=== PATIENT | female | born 1980 | race Caucasian/White ===

== ENCOUNTER 2016-11-25 09:19 | Emergency (ER) | payer MEDICAID, OTHER ==
[~2016-11-25] VITALS: Ht 160 cm; Wt 86.0 kg
[~2016-11-25 09:19] MED LIST: CIPR500T2 PO; METR-1 PO; NAPR500 PO; OXYC-360 PO; TETR500 PO
[2016-11-25 09:22] VITALS: BP 157/70; PULSE 69; RESP 16; TEMP 98.4; O2SAT 100
[2016-11-25] MEDS ORDERED: SODIUM CHLORIDE 0.9% FLUSH 10 ML FLUSH IVF PRN (09:45)
[2016-11-25] MEDS ORDERED: SODIUM CHLOR 0.9% 1000 ML INJ 1,000 ML IV ONE (10:00)
--- NOTE | 2016-11-25 10:01 | PD ---
HPI Chief Complaint: Related Problem Time Seen by Provider: 09:35 Travel History International Travel<30 days: No Contact w/Intl Traveler<30days: No Traveled to known affect area: No History of Present Illness HPI Patient is a [id number], who presents to ER with complaints of possible miscarriage. Patient reports that she has abnormal menstrual cycles, reports that she cannot tell me when her first day of her last menstrual cycle was. Patient reports that she last had sexual intercourse with her ex a few weeks ago, reports that this was a one-time deal and has not had sexual intercourse since then. Patient reports that last week, she took a test which was positive. Patient reports that on Tuesday, she had increased lower abdominal cramping with heavy vaginal bleeding and clots. Patient reports that bleeding has been intermittent in nature, reports the bleeding has slowed down, she was concerned that she be miscarrying her child. Patient unsure how far along she is at this time, she does not have an SAIL CUTTER as she has no insurance and reports that she cannot seek medical care. Patient here for evaluation of possible miscarriage. Patient with no abdominal pain or cramping at this time. Patient denies fevers or chills, no vaginal discharge except for vaginal bleeding. PFSH Past Medical History Medical History: Denies Significant Hx Diminished Hearing: No Tetanus Vaccination: > 5 Years Influenza Vaccination: No ?: Unknown LMP: 10/05/16 : 5 Para: 2 Miscarriage: 2 Past Surgical History Surgical History: No Previous Surgery Social History Alcohol Use: No Tobacco Use: No Substance Use: No Allergies-Medications (Allergen,Severity, Reaction): Coded Allergies: No Known Allergies (Verified , 11/25/16) Reported Meds & Prescriptions Reported Meds & Active Scripts Active No Active Prescriptions or Reported Medications Review of Systems General / Constitutional: No: Fever Eyes: No: Visual changes HENT: No: Headaches Cardiovascular: No: Chest Pain or Discomfort Respiratory: No: Shortness of Breath Gastrointestinal: Positive: Abdominal Pain Genitourinary: Positive: Pelvic Pain, Vaginal Bleeding, No: Urgency, Dysuria, Discharge Musculoskeletal: No: Pain Skin: No Rash Neurologic: No: Weakness Psychiatric: No: Depression Endocrine: No: Polydipsia Hematologic/Lymphatic: No: Easy Bruising Physical Exam Narrative GENERAL: NAD, nontoxic SKIN: Focused skin assessment warm/dry. HEAD: Atraumatic. Normocephalic. EYES: Pupils equal and round. No scleral icterus. No injection or drainage. ENT: No nasal bleeding or discharge. Mucous membranes pink and moist. NECK: Trachea midline. No JVD. CARDIOVASCULAR: Regular rate and rhythm. No murmur appreciated. RESPIRATORY: No accessory muscle use. Clear to auscultation. Breath sounds equal bilaterally. GASTROINTESTINAL: Abdomen soft, non-tender, nondistended. Hepatic and splenic margins not palpable. MUSCULOSKELETAL: No obvious deformities. No clubbing. No cyanosis. No edema. NEUROLOGICAL: Awake and alert. No obvious cranial nerve deficits. Motor grossly within normal limits. Normal speech. PSYCHIATRIC: Appropriate mood and affect; insight and judgment normal. Data Data Last Documented VS Vital Signs Date Time Temp Pulse Resp B/P Pulse Ox O2 Delivery O2 Flow Rate FiO2 11/25/16 09:36 74 18 11/25/16 09:22 98.4 157/70 100 Orders Beta Hcg (Quant/Titer) (11/25/16 09:35) Complete Blood Count With Diff (11/25/16 09:35) Basic Metabolic Panel (Bmp) (11/25/16 09:35) Urinalysis - C+S If Indicated (11/25/16 09:35) Iv Access Insert/Monitor (11/25/16 09:35) Sodium Chloride 0.9% Flush (Ns Flush) (11/25/16 09:45) Ed Urine Pregnancytest Poc (11/25/16 09:35) Type And Screen (11/25/16 09:36) Us Pelvis (Ques Pr/Ect)W Trans (11/25/16 ) Sodium Chlor 0.9% 1000 Ml Inj (Ns 1000 M (11/25/16 10:00) Labs Laboratory Tests Test 11/25/16 11/25/16 09:30 09:45 Urine Color YELLOW Urine Turbidity CLEAR Urine pH 6.5 Urine Specific [place] 1.019 Urine Protein TRACE mg/dL Urine Glucose (UA) NEG mg/dL Urine Ketones TRACE mg/dL Urine Occult Blood TRACE Urine Nitrite NEG Urine Bilirubin NEG Urine Urobilinogen LESS THAN 2.0 MG/DL Urine Leukocyte Esterase SMALL Urine RBC 1 /hpf Urine WBC 1 /hpf Urine Squamous Epithelial 2 /hpf Cells Urine Mucus FEW /lpf Microscopic Urinalysis Comment CULT NOT INDICATED White Blood Count 6.4 TH/MM3 Red Blood Count 3.57 MIL/MM3 Hemoglobin 10.3 GM/DL Hematocrit 31.1 % Mean Corpuscular Volume 87.3 FL Mean Corpuscular Hemoglobin 28.9 PG Mean Corpuscular Hemoglobin 33.1 % Concent Red Cell Distribution Width 13.9 % Platelet Count 387 TH/MM3 Mean Platelet Volume 6.9 FL Neutrophils (%) (Auto) 67.3 % Lymphocytes (%) (Auto) 24.4 % Monocytes (%) (Auto) 6.6 % Eosinophils (%) (Auto) 1.2 % Basophils (%) (Auto) 0.5 % Neutrophils # (Auto) 4.3 TH/MM3 Lymphocytes # (Auto) 1.6 TH/MM3 Monocytes # (Auto) 0.4 TH/MM3 Eosinophils # (Auto) 0.1 TH/MM3 Basophils # (Auto) 0.0 TH/MM3 CBC Comment DIFF FINAL Differential Comment Sodium Level 137 MEQ/L Potassium Level 3.8 MEQ/L Chloride Level 106 MEQ/L Carbon Dioxide Level 23.6 MEQ/L Anion Gap 7 MEQ/L Blood Urea Nitrogen 7 MG/DL Creatinine 0.70 MG/DL Estimat Glomerular Filtration 94 ML/MIN Rate Random Glucose 96 MG/DL Calcium Level 8.5 MG/DL Human Chorionic Gonadotropin, 44 MIU/ML Quant Blood Type O POSITIVE Antibody Screen NEGATIVE MDM Medical Decision Making Medical Screen Exam Complete: Yes Emergency Medical Condition: Yes Medical Record Reviewed: Yes Interpretation(s) Vital Signs Date Time Temp Pulse Resp B/P Pulse Ox O2 Delivery O2 Flow Rate FiO2 11/25/16 09:36 74 18 11/25/16 09:22 98.4 69 16 157/70 100 Differential Diagnosis Differential includes early vaginal bleeding with , spontaneous miscarriage Narrative Course Patient is a 36-year-old female who presents to emergency room complaints of possible miscarriage. Reports that she took a test last week which was positive, she is unsure when her first day of her last menstrual cycle was. Reports that on Tuesday, she had heavy vaginal bleeding with of clots, reports that the bleeding has been intermittent and has slowed down, or reports no abdominal pain or cramping at this time. Patient reports that she does not have follow-up with an SAIL CUTTER, patient is here to see if she is having a miscarriage. Urine hCG is positive. HCG Quant ordered, pelvic ultrasound. Laboratory Tests Test 11/25/16 11/25/16 09:30 09:45 Urine Color YELLOW (YELLW/STRAW) Urine Turbidity CLEAR (CLEAR) Urine pH 6.5 (5.0-8.5) Urine Specific [place] 1.019 (1.002-1.035) Urine Protein TRACE mg/dL (NEG-TRACE) Urine Glucose (UA) NEG mg/dL (NEG) Urine Ketones TRACE mg/dL (NEG) Urine Occult Blood TRACE (NEG) Urine Nitrite NEG (NEG) Urine Bilirubin NEG (NEG) Urine Urobilinogen LESS THAN 2.0 MG/DL (LESS THAN 2.0) Urine Leukocyte Esterase SMALL (NEG) Urine RBC 1 /hpf (0-3) Urine WBC 1 /hpf (0-5) Urine Squamous Epithelial 2 /hpf (0-5) Cells Urine Mucus FEW /lpf (OCC) Microscopic Urinalysis Comment CULT NOT INDICATED White Blood Count 6.4 TH/MM3 (4.0-11.0) Red Blood Count 3.57 MIL/MM3 (4.00-5.30) Hemoglobin 10.3 GM/DL (11.6-15.3) Hematocrit 31.1 % (35.0-46.0) Mean Corpuscular Volume 87.3 FL (80.0-100.0) Mean Corpuscular Hemoglobin 28.9 PG (27.0-34.0) Mean Corpuscular Hemoglobin 33.1 % Concent (32.0-36.0) Red Cell Distribution Width 13.9 % (11.6-17.2) Platelet Count 387 TH/MM3 (150-450) Mean Platelet Volume 6.9 FL (7.0-11.0) Neutrophils (%) (Auto) 67.3 % (16.0-70.0) Lymphocytes (%) (Auto) 24.4 % (9.0-44.0) Monocytes (%) (Auto) 6.6 % (0.0-8.0) Eosinophils (%) (Auto) 1.2 % (0.0-4.0) Basophils (%) (Auto) 0.5 % (0.0-2.0) Neutrophils # (Auto) 4.3 TH/MM3 (1.8-7.7) Lymphocytes # (Auto) 1.6 TH/MM3 (1.0-4.8) Monocytes # (Auto) 0.4 TH/MM3 (0-0.9) Eosinophils # (Auto) 0.1 TH/MM3 (0-0.4) Basophils # (Auto) 0.0 TH/MM3 (0-0.2) CBC Comment DIFF FINAL Differential Comment Sodium Level 137 MEQ/L (136-145) Potassium Level 3.8 MEQ/L (3.5-5.1) Chloride Level 106 MEQ/L (98-107) Carbon Dioxide Level 23.6 MEQ/L (21.0-32.0) Anion Gap 7 MEQ/L (5-15) Blood Urea Nitrogen 7 MG/DL (7-18) Creatinine 0.70 MG/DL (0.50-1.00) Estimat Glomerular Filtration 94 ML/MIN (>89) Rate Random Glucose 96 MG/DL (74-106) Calcium Level 8.5 MG/DL (8.5-10.1) Human Chorionic Gonadotropin, 44 MIU/ML (0-5) Quant Blood Type O POSITIVE Antibody Screen NEGATIVE hbg 10.3, hcg quant 44, ua: trace ketones, trace occult blood, small leuk esterase, 1 wbc, neg nitrite with a hcg quant of 44, patient with most likely spontaneous miscarriage vs early . discussed with patient need to have a repeat hcg quant in 48 hours as she will need to trend her numbers. she will also need to follow up with electrical installation inspector. signs and symptoms of when to return to ER was reviewed with patient in detail. Copies of her studies were given to her at discharge signs and symptoms of when to return to ER was reviewed with patient in detail Diagnosis Primary Impression: Vaginal bleeding in Referrals: Jeimy Adam MD Patient Instructions: General Instructions Additional Instructions: Please provide patient with a copy of her studies at discharge Please have your HCG quant repeated in 48 hours as your HCT quant today is 44 as there is concern for early versus miscarriage Please follow up with your electrical installation inspector Return to ER if symptoms worsen or persist Scripts No Active Prescriptions or Reported Meds Disposition: 01 DISCHARGE HOME Condition: Stable StanfordTherese Nov 25, 2016 10:01
[2016-11-25 10:02] LABS: AUTOMATED NEUTROPHIL # 4.3 TH/MM3 (1.8-7.7); BASOPHIL % 0.5 % (0.0-2.0); EOSINOPHIL # 0.1 TH/MM3 (0-0.4); EOSINOPHIL % 1.2 % (0.0-4.0); HEMATOCRIT 31.1 % (35.0-46.0); HEMO FLAGS DIFF FINAL; LYMPH % 24.4 % (9.0-44.0); LYMPHOCYTE # 1.6 TH/MM3 (1.0-4.8); MEAN CELL VOLUME 87.3 FL (80.0-100.0); MEAN CORPUSCULAR HEMOGLOBIN 28.9 PG (27.0-34.0); MEAN CORPUSCULAR HGB CONC 33.1 % (32.0-36.0); MONO % 6.6 % (0.0-8.0); NEUT % 67.3 % (16.0-70.0); PLATELET COUNT 387 TH/MM3 (150-450); RED BLOOD COUNT 3.57 MIL/MM3 (4.00-5.30); RED CELL DISTRIBUTION WIDTH 13.9 % (11.6-17.2); WHITE BLOOD COUNT 6.4 TH/MM3 (4.0-11.0)
[2016-11-25 10:09] LABS: BLOOD, URINE TRACE (NEG); COMMENT (UR) CULT NOT INDICATED; CULTURE IF INDICATED CULT NOT INDICATED; GLUCOSE,URINE NEG (NEG); KETONE, URINE TRACE mg/dL (NEG); MUCUS URINE FEW /lpf (OCC); NITRITE,URINE NEG (NEG); PH, URINE 6.5 (5.0-8.5); SQUAMOUS EPITHELIAL CELL URINE 2 /hpf (0-5); URINE COLOR YELLOW (YELLW/STRAW)
[2016-11-25 10:18] LABS: BICARBONATE 23.6 MEQ/L (21.0-32.0); POTASSIUM 3.8 MEQ/L (3.5-5.1)
--- NOTE | 2016-11-25 12:51 | RADRPT ---
EXAM DATE/TIME: 11/25/2016 10:23 [facility] COMPARISON: No previous studies available for comparison. INDICATIONS : Pelvic bleeding and pain. LAB(S): Beta-hC MEDICAL HISTORY : . SURGICAL HISTORY : None. ENCOUNTER: Initial ACUITY: 3 days PAIN SCORE: 2/10 LOCATION: Bilateral pelvis MEASUREMENTS: TRANSVAGINAL: UTERUS: 8.1 x 6.8 x 5.0 cm ENDOMETRIAL STRIPE: 10 mm RIGHT OVARY: 4.2 x 1.8 x 1.8 cm LEFT OVARY: 4.9 x 4.0 x 2.9 cm FREE FLUID: Yes posterior cul de sac. FINDINGS: No intrauterine gestational sac is identified. The endometrium is somewhat thickened. With a positi ve test, differential includes very early intrauterine , missed and ectop ic . Correlation with Beta HCG levels is suggested. There is a complex cystic mass arising from the left ovary measuring 3.1 x 2.2 x 3.5 cm. A small complex hypoechoic nodule is also noted w ithin the left ovary measuring 1.1 x 1.1 x 1.3 cm. The right ovary is unremarkable. There is some f ree fluid within the cul-de-sac. Nabothian cyst is noted within the cervix. CONCLUSION: 1. No intrauterine gestational sac is identified. With a positive test, differential diagn osis includes very early intrauterine , missed and ectopic . Correlation with serial Beta HCG levels is suggested. 2. Some free fluid within the cul-de-sac. 3. Complex cystic lesion within the left ovary measuring 3.1 x 2.2 x 3.5 cm. Frederick Thompson MD on November 25, 2016 at 11:57 Board Certified Radiologist. This report was verified electronically.
== END 2016-11-25 13:59 | disposition home or self-care (01) ==
LOC: NEPD 09:19
DX: O46.91 Antepartum hemorrhage, unspecified, first trimester (principal); Z34.91 Encounter for supervision of normal pregnancy, unspecified, first trimester
CPT/HCPCS: 76700; 76817; 80048; 81001; 84702; 84703; 85025; 86850; 86900; 86901; 96360; 99284; J7030

== ENCOUNTER 2017-04-14 22:13 | Emergency (ER) | payer MEDICAID ==
[~2017-04-14] VITALS: Ht 160 cm; Wt 83.0 kg
[2017-04-14 22:17] VITALS: BP 145/78; PULSE 81; RESP 16; TEMP 98.4; O2SAT 98
== END 2017-04-14 23:50 | disposition left against medical advice (07) ==
LOC: NED 22:13
DX: R51 Headache (principal); Z53.21 Procedure and treatment not carried out due to patient leaving prior to being seen by health care provider
CPT/HCPCS: 99281

== ENCOUNTER 2017-06-06 07:39 | Inpatient (IN) | payer MEDICAID ==
[~2017-06-06] VITALS: Ht 160 cm; Wt 80.0 kg
[2017-06-06 07:42] VITALS: BP 144/86; PULSE 81; RESP 16; TEMP 98.5; O2SAT 100
[2017-06-06] MEDS ORDERED: MORPHINE SULFATE 8 MG/ML INJ IV PUSH ONE (08:15)
[2017-06-06] MEDS ORDERED: ONDANSETRON HCL 4 MG/2 ML VIAL IVP ONE (08:15)
--- NOTE | 2017-06-06 08:33 | PD ---
HPI Chief Complaint: Abdominal Pain Time Seen by Provider: 08:15 Travel History International Travel<30 days: No Contact w/Intl Traveler<30days: No Traveled to known affect area: No History of Present Illness HPI This is a 36-year-old female who presents today with complaints of abdominal pain. Patient states that it started in her left lower quadrant earlier today. She states that it has become so severe now that she cannot lay flat. She reports it as a sudden onset. She reports that she has had vaginal spotting. She denies any dysuria, frequency, urgency. She denies any vaginal discharge other than the spotting. She states that she is unsure whether or not she is . She has no previous history of ectopic pregnancies. There is no reported fevers, chills. There is no reported diarrhea, nausea or vomiting. PFSH Past Medical History Medical History: Denies Significant Hx Diminished Hearing: No ?: Not LMP: UNKNOWN : 5 Para: 2 Miscarriage: 2 Past Surgical History Surgical History: No Previous Surgery Social History Alcohol Use: No Tobacco Use: No Substance Use: Yes (feli ) Allergies-Medications (Allergen,Severity, Reaction): Coded Allergies: No Known Allergies (Verified Allergy, Unknown, 06/06/17) Reported Meds & Prescriptions Reported Meds & Active Scripts Active [place] (Hydrocodone-Acetaminophen) 7.5-325 mg Tab 1 Tab PO Q4H PRN 5 Days Review of Systems Except as stated in HPI: all other systems reviewed are Neg General / Constitutional: No: Fever, Chills HENT: No: Headaches, Lightheadedness, Neck Pain Cardiovascular: No: Chest Pain or Discomfort, Palpitations Respiratory: No: Cough, Shortness of Breath Gastrointestinal: Positive: Abdominal Pain (Diffuse, started left lower quadrant), No: Nausea, Vomiting, Diarrhea Genitourinary: Positive: Vaginal Bleeding (Spotting), No: Frequency, Dysuria, Discharge Musculoskeletal: No: Weakness, Pain Neurologic: No: Weakness, Dizziness, Headache Physical Exam Narrative GENERAL: Well-developed well-nourished female in no acute respiratory distress. The patient is very uncomfortable and was standing at the edge of the bed stating that she could not lie flat. SKIN: Focused skin assessment warm/dry. HEAD: Atraumatic. Normocephalic. EYES: Pupils equal and round. No scleral icterus. No injection or drainage. ENT: No nasal bleeding or discharge. Mucous membranes pink and moist. NECK: Trachea midline. Supple. CARDIOVASCULAR: Regular rate and rhythm. No murmur appreciated. RESPIRATORY: No accessory muscle use. Clear to auscultation. Breath sounds equal bilaterally. GASTROINTESTINAL: Abdomen soft, nondistended. She has severe tenderness to palpation in her lower abdominal segment bilaterally. Positive guarding with questionable early rebound. MUSCULOSKELETAL: No obvious deformities. No clubbing. No cyanosis. No edema. NEUROLOGICAL: Awake and alert. No obvious cranial nerve deficits. Motor grossly within normal limits. Normal speech. Data Data Last Documented VS Vital Signs Date Time Temp Pulse Resp B/P (MAP) Pulse Ox O2 Delivery O2 Flow Rate FiO2 06/06/17 10:36 65 18 99/69 (79) 99 Room Air 06/06/17 07:42 98.5 Orders Orders Complete Blood Count With Diff (06/06/17 08:15) Comprehensive Metabolic Panel (06/06/17 08:15) Urinalysis - C+S If Indicated (06/06/17 08:15) Ondansetron Inj (Zofran Inj) (06/06/17 08:15) Ed Urine Pregnancytest Poc (06/06/17 08:15) Morphine Inj (Morphine Inj) (06/06/17 08:15) Type And Screen (06/06/17 08:28) Prothrombin Time / Inr (Pt) (06/06/17 08:28) Act Partial Throm Time (Ptt) (06/06/17 08:28) Beta Hcg (Quant/Titer) (06/06/17 08:33) Us Pelvis (Ques Pr/Ect)W Trans (06/06/17 08:33) Morphine Inj (Morphine Inj) (06/06/17 09:30) Admit Order (Ed Use Only) (06/06/17 10:48) Labs Laboratory Tests Test 06/06/17 08:30 White Blood Count 7.3 TH/MM3 Red Blood Count 4.03 MIL/MM3 Hemoglobin 11.2 GM/DL Hematocrit 33.3 % Mean Corpuscular Volume 82.8 FL Mean Corpuscular Hemoglobin 27.9 PG Mean Corpuscular Hemoglobin Concent 33.7 % Red Cell Distribution Width 15.4 % Platelet Count 465 TH/MM3 Mean Platelet Volume 7.1 FL Neutrophils (%) (Auto) 58.5 % Lymphocytes (%) (Auto) 31.7 % Monocytes (%) (Auto) 6.5 % Eosinophils (%) (Auto) 2.3 % Basophils (%) (Auto) 1.0 % Neutrophils # (Auto) 4.3 TH/MM3 Lymphocytes # (Auto) 2.3 TH/MM3 Monocytes # (Auto) 0.5 TH/MM3 Eosinophils # (Auto) 0.2 TH/MM3 Basophils # (Auto) 0.1 TH/MM3 CBC Comment DIFF FINAL Differential Comment Prothrombin Time 10.3 SEC Prothromb Time International Ratio 1.0 RATIO Activated Partial Thromboplast Time 24.1 SEC Urine Color YELLOW Urine Turbidity CLEAR Urine pH 6.5 Urine Specific [place] 1.021 Urine Protein TRACE mg/dL Urine Glucose (UA) NEG mg/dL Urine Ketones NEG mg/dL Urine Occult Blood MOD Urine Nitrite NEG Urine Bilirubin NEG Urine Urobilinogen LESS THAN 2.0 MG/DL Urine Leukocyte Esterase TRACE Urine RBC 30 /hpf Urine WBC 1 /hpf Urine Squamous Epithelial Cells 1 /hpf Urine Mucus FEW /lpf Microscopic Urinalysis Comment CULT NOT INDICATED Blood Urea Nitrogen 10 MG/DL Creatinine 0.69 MG/DL Random Glucose 94 MG/DL Total Protein 7.3 GM/DL Albumin 3.9 GM/DL Calcium Level 9.0 MG/DL Alkaline Phosphatase 57 U/L Aspartate Amino Transf (AST/SGOT) 14 U/L Alanine Aminotransferase (ALT/SGPT) 15 U/L Total Bilirubin 0.5 MG/DL Sodium Level 138 MEQ/L Potassium Level 4.2 MEQ/L Chloride Level 105 MEQ/L Carbon Dioxide Level 26.3 MEQ/L Anion Gap 7 MEQ/L Estimat Glomerular Filtration Rate 95 ML/MIN Human Chorionic Gonadotropin, Quant 3339 MIU/ML [facility] Medical Decision Making Medical Screen Exam Complete: Yes Emergency Medical Condition: Yes Differential Diagnosis Ruptured ovarian cyst versus ectopic versus PID versus gastroenteritis Narrative Course 36-year-old female presents with severe left-sided abdominal pain that is now moved to her lower abdominal segment. Patient denies any fevers, chills. She states it came on quite suddenly. She does report vaginal spotting. Patient's urine test was positive. Bedside ultrasound shows an empty uterus with complex cystic structure in the left ovarian segment. There is free fluid in the pelvis that is consistent with blood per the radiologist. The patient is hemodynamically stable. She has been discussed with the on-call OB hospitalist. The OB hospitalist is now down to evaluate the patient with his medical team. She will be admitted to the hospital under the [employer]IO [employer]CH[employer]IC APPRENTICE physician on- call. The patient has been typed and crossed. She is Rh+. Formal beta-hCG is 3000. Critical Care Narrative Aggregate critical care time was 60 minutes. Time to perform other separately billable procedures was not included in the critical care time. My time did not include minutes spent treating any other patients simultaneously or on activities that did not directly contribute to the patient's treatment. The services I provided to this patient were to treat and/or prevent clinically significant deterioration that could result in: I provided critical care services requiring my management, as noted below: Chart data review, documentation time, medication orders and management, vital sign assessments/reviewing monitor data, ordering and reviewing lab tests, ordering and interpreting/reviewing x-rays and diagnostic studies, care of the patient and discussion of the patient with the admitting physicians. Diagnosis Primary Impression: Ruptured ectopic Admitting Information Admitting Physician Requests: Admit Scripts Hydrocodone-Acetaminophen ([place]) 7.5-325 mg Tab 1 TAB PO Q4H Y for PAIN for 5 Days, #30 TAB 0 Refills Prov: Maxwell Gonzalez MD 06/06/17 Rolan Rousseau MD Jun 06, 2017 08:33
[2017-06-06 08:47] LABS: AUTOMATED NEUTROPHIL # 4.3 TH/MM3 (1.8-7.7); BASOPHIL # 0.1 TH/MM3 (0-0.2); EOSINOPHIL # 0.2 TH/MM3 (0-0.4); EOSINOPHIL % 2.3 % (0.0-4.0); HEMATOCRIT 33.3 % (35.0-46.0); HEMOGLOBIN 11.2 GM/DL (11.6-15.3); LYMPH % 31.7 % (9.0-44.0); LYMPHOCYTE # 2.3 TH/MM3 (1.0-4.8); MEAN CELL VOLUME 82.8 FL (80.0-100.0); MEAN CORPUSCULAR HEMOGLOBIN 27.9 PG (27.0-34.0); MEAN CORPUSCULAR HGB CONC 33.7 % (32.0-36.0); MEAN PLATELET VOLUME 7.1 FL (7.0-11.0); MONO % 6.5 % (0.0-8.0); MONOCYTE # 0.5 TH/MM3 (0-0.9); NEUT % 58.5 % (16.0-70.0); PLATELET COUNT 465 TH/MM3 (150-450); RED BLOOD COUNT 4.03 MIL/MM3 (4.00-5.30); RED CELL DISTRIBUTION WIDTH 15.4 % (11.6-17.2); WHITE BLOOD COUNT 7.3 TH/MM3 (4.0-11.0)
[2017-06-06 08:57] LABS: BILIRUBIN, URINE NEG (NEG); BLOOD, URINE MOD (NEG); GLUCOSE,URINE NEG (NEG); KETONE, URINE NEG (NEG); MUCUS URINE FEW /lpf (OCC); NITRITE,URINE NEG (NEG); PH, URINE 6.5 (5.0-8.5); SQUAMOUS EPITHELIAL CELL URINE 1 /hpf (0-5); URINE COLOR YELLOW (YELLW/STRAW); URINE LEUKOCYTE ESTERASE TRACE (NEG)
[2017-06-06 09:08] LABS: ALBUMIN 3.9 GM/DL (3.4-5.0); AST (GOT) 14 U/L (15-37); BICARBONATE 26.3 MEQ/L (21.0-32.0); BLOOD UREA NITROGEN 10 MG/DL (7-18); CHLORIDE 105 MEQ/L (98-107); CREATININE 0.69 MG/DL (0.50-1.00); GLOMERULAR FILTRATION RATE 95 ML/MIN (>89); GLUCOSE,RANDOM 94 MG/DL (74-106); SODIUM (NA) 138 MEQ/L (136-145)
[2017-06-06 09:09] LABS: ALT (GPT) 15 U/L (10-53)
[2017-06-06 09:10] LABS: ALKALINE PHOSPHATASE 57 U/L (45-117); TOTAL BILIRUBIN ADULT 0.5 MG/DL (0.2-1.0); TOTAL PROTEIN 7.3 GM/DL (6.4-8.2)
[2017-06-06] MEDS ORDERED: MORPHINE SULFATE 4 MG/ML INJ IV PUSH ONE (09:30)
[2017-06-06 09:31] LABS: PROTHROMBIN TIME - PATIENT 10.3 SEC (9.8-11.6)
--- NOTE | 2017-06-06 09:34 | RADRPT ---
EXAM DATE/TIME: 06/06/2017 08:36 [facility] COMPARISON: US PELVIS (QUEST PREG/ECTOPIC) W/TRANSVAG, November 25, 2016, 10:23. INDICATIONS : Ruptured ectopic . Pelvic pain. LAB(S): Beta-hCG: N/A MEDICAL HISTORY : Substance use. Pelvic pain. Vaginal bleeding. SURGICAL HISTORY : None. ENCOUNTER: Initial ACUITY: 1 day PAIN SCORE: 10/10 LOCATION: Left pelvis MEASUREMENTS: UTERUS: 8.3 x 4.2 x 5.2 cm ENDOMETRIAL STRIPE: 7 mm RIGHT OVARY: 3.4 x 1.9 x 3.3 cm LEFT OVARY: 4.4 x 3.9 x 5.0 cm FREE FLUID: Yes Bilateral adnexas. CROWN RUMP LENGTH: Not visualized. = WKS DAYS FHR: Not visualized. BPM FINDINGS: UTERUS: The myometrium has homogeneous echotexture without mass. No gestational sac is present within the en dometrial cavity. RIGHT OVARY: Ovary contains no mass or significant cystic lesion. Follicles are present. LEFT OVARY: There is a heterogeneous echotexture masslike area in the left adnexa measuring a approximately 4.4 x 3.9 x 5.0 cm. There is a cystic structure in the region of the left adnexa which demonstrates periph eral hypervascularity. No yolk sac or embryo is seen. MISCELLANEOUS: There is complex free fluid in the posterior cul-de-sac and bilateral adnexa. CONCLUSION: 1. The above findings are suspicious for ruptured ectopic . There is a small volume of compl ex fluid in the pelvis, likely blood products, and there is a complex mass in the left adnexa. 2. There is no gestational sac within the uterus. The right ovary has a normal appearance. 3. Dr. Rousseau was notified of the above findings. Ashwin Maldonado MD on June 06, 2017 at 9:27 Board Certified Radiologist. This report was verified electronically.
[2017-06-06 10:36] VITALS: BP 99/69; PULSE 65; RESP 18; O2SAT 99
--- NOTE | 2017-06-06 11:34 | HHI.HP ---
HPI Chief Complaint Abdominal pain Travel History International Travel<30 Days: No Contact w/Intl Traveler<30Days: No Known Affected Area: No History of Present Illness HPI Patient is a 36-year-old presenting today with abdominal pain. Patient states that she had severe lower left quadrant pain last night which is described as sharp, "the worst pain of my life", attributed to eating red meat the day before. Overnight the pain increased to the entire abdomen, she now notes notes significant abdominal swelling. She states she currently has 2 living children, 1 past miscarriage, one completed via surgical removal. Last menstrual period approximately 1 month ago, normal, has had some spotting over the past couple days which she attributes to her own normal premenstrual spotting. She states she currently doesn't use contraceptive protection states she is "not really sexually active." Denies nausea, vomiting, fever, chills, change in bowel habits, change in urinary habits, chest pain, shortness of breath, headache, change in vision. No other complaints today. Para: 2 : 5 Miscarriage: 1 : 1 History Past Medical History Medical History: Denies Significant Hx Obstetric History Obstetric History Past history of miscarriage x1, surgical . NVD x 2 Past Surgical History Surgical History: No Previous Surgery Family History Family History: Negative Social History Alcohol Use: No Tobacco Use: No Substance Abuse: Yes (occasional marijuana) Allergies-Medications (Allergen,Severity, Reaction): Coded Allergies: No Known Allergies (Verified Adverse Reaction, Unknown, 04/14/17) Home Meds No Active Prescriptions or Reported Meds Review of Systems General / Constitutional: No: Fever, Chills Eyes: No: Diploplia, Blurred Vision, Visual changes, Pain, Photophobia HENT: No: Headaches, Vertigo, Lightheadedness Cardiovascular: No: Chest Pain or Discomfort, Palpitations, Tachycardia Respiratory: No: Cough, Short of Breath, Wheezing Gastrointestinal: Abdominal Pain, No: Nausea, Vomiting, Diarrhea, Hematemesis, Hematochezia, Constipation, Changes in Bowel Habits, Indigestion Genitourinary: Other (spotting), No: Urgency, Frequency, Dysuria, Hematuria Musculoskeletal: No: Limited ROM, Weakness Skin: No Rash, No Itching Neurologic: No: Weakness, Dizziness Psychiatric: No: Anxiety, Depression Endocrine: No: Polydipsia, Polyuria Hematologic/Lymphatic: No Easy Bruising, No Lymph Node Enlargement Physical Exam Vital Signs Date Time Temp Pulse Resp B/P (MAP) Pulse Ox O2 Delivery O2 Flow Rate FiO2 06/06/17 10:36 65 18 99/69 (79) 99 Room Air 06/06/17 07:42 98.5 81 16 144/86 (105) 100 Narrative GENERAL: Well-nourished, well-developed patient SKIN: Warm and dry. HEAD: Normocephalic and atraumatic. EYES: No scleral icterus. No injection or drainage. ENT: No nasal drainage noted. Mucous membranes pink. Airway patent. NECK: Supple, trachea midline. No JVD. CARDIOVASCULAR: Regular rate and rhythm without murmurs, gallops, or rubs. RESPIRATORY: Breath sounds equal bilaterally. No accessory muscle use. ABDOMEN/GI: Abdomen soft, distended, global tenderness to soft palpation, worse in left lower quadrant, guarding, bowel sounds present, negative psoas EXTREMITIES: No cyanosis or edema. BACK: Nontender without obvious deformity. No CVA tenderness. NEUROLOGICAL: Awake and alert. Motor and sensory grossly within normal limits. Five out of 5 muscle strength in all muscle groups. Normal speech. Caprini VTE Risk Assessment Caprini VTE Risk Assessment: No/Low Risk (score <= 1) Data Data Orders Orders Complete Blood Count With Diff (06/06/17 08:15) Comprehensive Metabolic Panel (06/06/17 08:15) Urinalysis - C+S If Indicated (06/06/17 08:15) Ondansetron Inj (Zofran Inj) (06/06/17 08:15) Ed Urine Pregnancytest Poc (06/06/17 08:15) Morphine Inj (Morphine Inj) (06/06/17 08:15) Type And Screen (06/06/17 08:28) Prothrombin Time / Inr (Pt) (06/06/17 08:28) Act Partial Throm Time (Ptt) (06/06/17 08:28) Beta Hcg (Quant/Titer) (06/06/17 08:33) Us Pelvis (Ques Pr/Ect)W Trans (06/06/17 08:33) Morphine Inj (Morphine Inj) (06/06/17 09:30) Admit Order (Ed Use Only) (06/06/17 10:48) Labs Laboratory Tests Test 06/06/17 08:30 White Blood Count 7.3 Red Blood Count 4.03 Hemoglobin 11.2 Hematocrit 33.3 Mean Corpuscular Volume 82.8 Mean Corpuscular Hemoglobin 27.9 Mean Corpuscular Hemoglobin Concent 33.7 Red Cell Distribution Width 15.4 Platelet Count 465 Mean Platelet Volume 7.1 Neutrophils (%) (Auto) 58.5 Lymphocytes (%) (Auto) 31.7 Monocytes (%) (Auto) 6.5 Eosinophils (%) (Auto) 2.3 Basophils (%) (Auto) 1.0 Neutrophils # (Auto) 4.3 Lymphocytes # (Auto) 2.3 Monocytes # (Auto) 0.5 Eosinophils # (Auto) 0.2 Basophils # (Auto) 0.1 CBC Comment DIFF FINAL Differential Comment Prothrombin Time 10.3 Prothromb Time International Ratio 1.0 Activated Partial Thromboplast Time 24.1 Urine Color YELLOW Urine Turbidity CLEAR Urine pH 6.5 Urine Specific [place] 1.021 Urine Protein TRACE Urine Glucose (UA) NEG Urine Ketones NEG Urine Occult Blood MOD Urine Nitrite NEG Urine Bilirubin NEG Urine Urobilinogen LESS THAN 2.0 Urine Leukocyte Esterase TRACE Urine RBC 30 Urine WBC 1 Urine Squamous Epithelial Cells 1 Urine Mucus FEW Microscopic Urinalysis Comment CULT NOT INDICATED Blood Urea Nitrogen 10 Creatinine 0.69 Random Glucose 94 Total Protein 7.3 Albumin 3.9 Calcium Level 9.0 Alkaline Phosphatase 57 Aspartate Amino Transf (AST/SGOT) 14 Alanine Aminotransferase (ALT/SGPT) 15 Total Bilirubin 0.5 Sodium Level 138 Potassium Level 4.2 Chloride Level 105 Carbon Dioxide Level 26.3 Anion Gap 7 Estimat Glomerular Filtration Rate 95 Human Chorionic Gonadotropin, Quant 3339 Assessment/Plan Problem List: (1) Ruptured ectopic ICD Codes: O00.90 - Unspecified ectopic without intrauterine Status: Acute Plan: 36 year old presented with global abdominal tenderness, negative CVA tenderness. Denies contraceptive use. Ultrasound demonstrates no gestational sac within the uterus, small volume of complex fluid in the pelvis, complex mass in left adnexa, suspicious for ruptured ectopic . Hgb 11.2 , HCG 3339 -Admit for surgical intervention -Monitor vital signs -NPO -Morphine pain scale PRN pain -2g ancef as per guest relations representative controller repairer and tester d/w Dr. Patrick Zamora,Christopher Shaw MD R1 Jun 06, 2017 11:34
[2017-06-06] MEDS ORDERED: MORPHINE SULFATE 2 MG/ML INJ IV PUSH PRN ×3 (11:45)
[2017-06-06] MEDS ORDERED: IBUPROFEN 400 MG TAB PO PRN (11:45)
[2017-06-06] MEDS ORDERED: NALOXONE HCL 0.4 MG/ML AMP IV PUSH PRN (11:45)
[2017-06-06] MEDS ORDERED: ceFAZolin 2 GM PREMIX 50 ML IV SCH (11:45)
[2017-06-06] MEDS ORDERED: BUPIVACAINE HCL PF 0.25% 30 ML VIAL ONE (11:57)
[2017-06-06] MEDS ORDERED: GLYCOPYRROLATE 1 MG/5 ML SYRINGE IV PUSH ONE (12:00)
[2017-06-06] MEDS ORDERED: ROCURONIUM INJ 50 MG/5 ML SYRINGE IV PUSH ONE (12:00)
[2017-06-06] MEDS ORDERED: ONDANSETRON HCL 4 MG/2 ML VIAL IV ONE (12:00)
[2017-06-06] MEDS ORDERED: LACTATED RINGER'S 1000 ML INJ 1,000 ML IV ONE (12:00)
[2017-06-06] MEDS ORDERED: DEXAMETHASONE SOD PHOS 4 MG/ML VIAL IV ONE (12:00)
[2017-06-06] MEDS ORDERED: NORMOSOL R INJ 1,000 ML IV ONE (12:00)
[2017-06-06] MEDS ORDERED: KETOROLAC TROMETHAMINE 30 MG/ML (IVP) VIAL IV PUSH ONE (12:00)
[2017-06-06] MEDS ORDERED: PROPOFOL 200 MG/20 ML AMP IV ONE (12:00)
[2017-06-06] MEDS ORDERED: NEOSTIGMINE 5 MG/5 ML SYRINGE IV PUSH ONE (12:00)
[2017-06-06] MEDS ORDERED: LIDOCAINE HCL 1% PF 5 ML SYRINGE OTHER ONE (12:00)
[2017-06-06] MEDS ORDERED: oxyCODONE/ACETAMINOPHEN 5 MG/325 MG TAB PO PRN (13:00)
[2017-06-06] MEDS ORDERED: diphenhydrAMINE HCL 25 MG CAP PO PRN (13:00)
[2017-06-06] MEDS ORDERED: HYDROmorphone HCL PF 2 MG/ML VIAL IV PRN (13:00)
[2017-06-06] MEDS ORDERED: SODIUM CHLORIDE 0.9% FLUSH 10 ML FLUSH IV FLUSH SCH ×2 (13:00→21:00)
[2017-06-06] MEDS ORDERED: IBUPROFEN 600 MG TAB PO PRN (13:00)
[2017-06-06] MEDS ORDERED: ONDANSETRON HCL 4 MG/2 ML VIAL IVP PRN (13:00)
[2017-06-06] MEDS ORDERED: LORazepam 0.5 MG TAB PO PRN (13:00)
[2017-06-06] MEDS: DOCUSATE SODIUM 100 MG CAP PO SCH (13:00)
[2017-06-06] MEDS ORDERED: SODIUM CHLORIDE 0.9% FLUSH 10 ML FLUSH IV FLUSH PRN ×2 (13:00→17:00)
[2017-06-06] MEDS ORDERED: HYDR-3288 PO (13:03)
[2017-06-06] MEDS ORDERED: DO NOT ADM ANY ANTICOAGULANT DRUGS PRN (13:29)
[2017-06-06] MEDS ORDERED: *morphine SULFATE 10 MG/ML PERIprocedure ONLY ONE (13:46)
[2017-06-06] MEDS: LACTATED RINGER'S 1000 ML INJ 1,000 ML IV SCH ×2 (14:00→19:42)
--- NOTE | 2017-06-06 15:43 | MP ---
cc: Maxwell Gonzalez MD DATE OF OPERATION: 06/06/2017 PREOPERATIVE DIAGNOSIS: Patient with ruptured left-sided ectopic . PROCEDURE: Emergency laparoscopy with left salpingectomy, removal of ectopic , exam under anesthesia. POSTOPERATIVE DIAGNOSIS: Patient with ruptured left-sided ectopic . SURGEON: Maxwell Gonzalez MD ANESTHESIA: General with endotracheal intubation. ESTIMATED BLOOD LOSS: Approximately 100 mL. DRAINS: Bautista to gravity during the procedure. SURGICAL SPECIMEN: Included left fallopian tube with ectopic . OPERATIVE FINDINGS: The patient had large, distended left fallopian tube with active bleeding from the distal end consistent with the preoperative diagnosis of an ectopic . INDICATION FOR PROCEDURE: The patient presented to the emergency department on the morning of 06/06/2017 with acute abdominal pain, severe. Workup by the ER attending was consisted with a ruptured ectopic , positive mass in the left fallopian tube on ultrasound with significant free fluid, elevated beta hCG of about 3000 units. Patient was consented and was brought to the operating room for emergency surgery. PROCEDURE DESCRIPTION: The patient was in stable condition. Patient was consented for operative procedure as described above and once she was taken back to the operative suite, she underwent general anesthesia with endotracheal intubation. She was carefully positioned in the dorsal lithotomy position using Tristin stirrups on the lower extremities. She was prepped and draped and she had a Bautista catheter inserted by sterile technique. Time-out was conducted, agreed by all present in the room. Exam revealed a midline cervix. Uterus was normal size and shape without significant deformity or enlargement. A Hulka tenaculum was used to manipulate the cervix and the gloves were changed after removing the retractor. The abdomen was examined, 0.25% plain Marcaine was used to inject the trocar sites. The first trocar site was the umbilical port, placing a 5 mm trocar directly into the peritoneal cavity through a small stab wound. Insufflation at low pressure was uncomplicated. The patient was then placed in Trendelenburg positioning and accessory ports were placed suprapubically using a 12 mm port and then a 5 mm right lateral port. The operative findings were consistent with the preoperative diagnosis. The Harmonic scalpel was then used to do a linear salpingectomy, removing the fallopian tube completely with the ectopic, placing it in an Endo Catch collection device through the 12 mm port and then retrieving it through the 12 mm port site without complication. There was no spillage of contents. Copious normal saline was used to evacuate the free fluid and the organized clot that was in the pelvis, then observation off pressure revealed no active bleeding from the operative site. At the completion of the case, final count was correct, the pneumoperitoneum was decompressed, and the trocars were removed. The suprapubic port site was closed with an interrupted suture of 0 Vicryl, closing the fascia, and then subcuticular stitch of 4-0 Monocryl was used to close the skin incisions with Steri-Strips and Band-Aids placed over the incision. The Hulka tenaculum was removed from the cervix and then the Bautista catheter was removed in an atraumatic fashion. No vaginal bleeding was incurred. At the completion of the case, the final count was correct, the patient was stable, she was taken to the recovery room on room air. Maxwell Gonzalez MD [facility] , 01:11 PM , 01:52 PM
[2017-06-06 16:00] VITALS: BP 104/68; PULSE 53; RESP 16; TEMP 98
[2017-06-06] MEDS ORDERED: DIPHTH/TETANUS/ACEL PERTUSSIS (BOOSTER) 0.5 ML VIAL/PFS IM ONE (16:00)
[2017-06-06] MEDS ORDERED: MEASLES, MUMPS, RUBELLA VACCINE 0.5 ML VIAL SQ ONE (16:00)
[2017-06-06 16:40] LABS: HEMOGLOBIN 9.4 GM/DL (11.6-15.3)
[2017-06-06] MEDS ORDERED: DOCUSATE SODIUM 50 MG/SENNA 8.6 MG TAB PO PRN (17:00)
[2017-06-06] MEDS ORDERED: OXYTOCIN 30 UNITS-500ML PREMIX 500 ML IV SCH (17:00)
[2017-06-06] MEDS ORDERED: ALUMINUM/MAGNESIUM/SIMETH 30 ML CUP PO PRN (17:00)
[2017-06-06] MEDS ORDERED: WITCH HAZEL 50%/GLYCERIN 12.5% 40 PAD JAR TOPICAL PRN (17:00)
[2017-06-06] MEDS ORDERED: ZOLPIDEM TARTRATE 5 MG TAB PO PRN (17:00)
[2017-06-06] MEDS ORDERED: BENZOCAINE 20% TOPICAL SPRAY 60 ML CAN TOPICAL PRN (17:00)
[2017-06-06] MEDS ORDERED: ONDANSETRON ODT 4 MG TAB PO PRN (17:00)
[2017-06-06] MEDS ORDERED: IBUPROFEN 800 MG TAB PO PRN (17:00)
[2017-06-06] MEDS ORDERED: OXYTOCIN 10 UNIT/ML AMP XX PRN (17:00)
[2017-06-06] MEDS ORDERED: ACETAMINOPHEN 325 MG TAB PO PRN (17:00)
--- NOTE | 2017-06-06 17:02 | PD.OB.DELI ---
Gest age assessed date: Jun 06, 2017 Gest age assessed time: 13:00 Pt started active labor?: Yes Active labor start date: Jun 06, 2017 Active labor start time: 13:00 Medical induction of labor?: No Artificial rupture of membrane: Yes Artificial ROM date: Jun 06, 2017 Artifical ROM time: 15:48 Anesthesia: None Episiotomy: None Vaginal Delivery: Normal Presentation: Occiput anterior Nuchal Cord: x1 Delayed cord clamping (45 sec): No Shoulder Dystocia: Suprapubic pressure given, Khris maneuver done : Male Delivery date: Jun 06, 2017 Delivery time: 16:47 One Minute : 9 Five Minute : 9 Placenta: Spontaneous delivery Laceration: No lacerations Estimated blood loss: 200cc Maxwell Gonzalez MD Jun 06, 2017 17:02
--- NOTE | 2017-06-06 17:23 | HHI.PR ---
Subjective Remarks Doing well, pain is controlled with morphine, has only taken in liquids,some nausea. Surgical findings discussed with patient, simple LEFT SALPINGECTOMY Objective Vital Signs Vital Signs Date Time Temp Pulse Resp B/P (MAP) Pulse Ox O2 Delivery O2 Flow Rate FiO2 06/06/17 16:00 98.0 53 16 104/68 (80) 06/06/17 14:45 97.8 52 16 100/58 (72) 96 Room Air 06/06/17 14:30 51 15 98/55 (69) 96 Room Air 06/06/17 14:15 50 15 99/56 (70) 95 Room Air 06/06/17 14:00 97.9 48 15 106/54 (71) 95 Room Air 06/06/17 13:45 49 15 112/59 (76) 95 Room Air 06/06/17 13:30 55 14 114/57 (76) 100 Nasal Cannula 2 06/06/17 13:25 98.2 57 14 123/58 (79) 100 Nasal Cannula 3 06/06/17 11:59 06/06/17 10:36 65 18 99/69 (79) 99 Room Air 06/06/17 07:42 98.5 81 16 144/86 (105) 100 I/O 06/05/17 06/05/17 06/05/17 06/06/17 06/06/17 06/06/17 07:00 15:00 23:00 07:00 15:00 23:00 Intake Total 1100 ml Output Total 100 ml Balance 1000 ml Intake Other 1100 ml Output Estimated Blood Loss 50 ml Other 50 ml # Voids 0 Result Diagram: 06/06/17 1541 06/06/17 0830 Objective Remarks Chest is clear, regular rate and rhythm. Abdomen is soft and non-distended. Incision is clean and dry. Ext no CCE. A/P Assessment and Plan Night of surgery, S/P Laparoscopic left salpingectomy, left ectopic Plan for overnight stay ,discharge for AM, Instructed to return to office in 1- 2 weeks Maxwell Gonzalez MD Jun 06, 2017 17:23
--- NOTE | 2017-06-06 17:23 | HHI.DCPOC ---
Discharge Care Plan Your Health Problems Are: Abdominal pain Fever, temperature>100.4 Nausea and/or vomiting Pelvic pain Report Symptoms to Your Doctor -Temperature above 100.5 degrees -Redness, of incision or excessive or foul smelling drainage -Unusual pain or calf pain -Increased vaginal bleeding -Painful or difficulty urinating -Feelings of extreme sadness or anxiety after 2 weeks Goals to Promote Your Health * To prevent worsening of your condition and complications * To maintain your health at the optimal level Directions to Meet Your Goals Take your medications as prescribed Follow your dietary instruction Follow activity as directed Ensure plenty of rest for recovery Drink fluids for hydration Keep your appointments as scheduled Take your immunizations and boosters as scheduled If your symptoms worsen call your PCP, if no PCP go to Urgent Care Center or Emergency Room Smoking is Dangerous to Your Health. Avoid second hand smoke Call the 24-hour crisis hotline for domestic abuse at Maxwell Gonzalez MD Jun 06, 2017 17:23
[2017-06-06 19:35] VITALS: BP 100/62; PULSE 56; RESP 20; TEMP 98.2; O2SAT 100
[2017-06-06] MEDS: KETOROLAC TROMETHAMINE 30 MG/ML (IVP) VIAL IVP PRN (19:41)
[2017-06-06] MEDS: oxyCODONE/ACETAMINOPHEN 5 MG/325 MG TAB PO PRN (19:43)
[2017-06-07 00:30] VITALS: BP 89/56; PULSE 54; RESP 18; TEMP 98.6; O2SAT 98
[2017-06-07] MEDS: DOCUSATE SODIUM 100 MG CAP PO SCH (01:58)
[2017-06-07] MEDS: oxyCODONE/ACETAMINOPHEN 5 MG/325 MG TAB PO PRN ×2 (01:59→07:52)
[2017-06-07] MEDS: KETOROLAC TROMETHAMINE 30 MG/ML (IVP) VIAL IVP PRN (01:59)
[2017-06-07 04:50] VITALS: BP 86/58; PULSE 49; RESP 18; TEMP 98.8; O2SAT 97
[2017-06-07] MEDS: LACTATED RINGER'S 1000 ML INJ 1,000 ML IV SCH (05:02)
[2017-06-07 07:56] VITALS: BP 92/50; PULSE 56; RESP 18; TEMP 98; O2SAT 98
--- NOTE | 2017-06-07 08:16 | HHI.PR ---
Subjective Remarks Doing well, pain is well controlled, eating well. some gas pain many questions Objective Vital Signs Vital Signs Date Time Temp Pulse Resp B/P (MAP) Pulse Ox O2 Delivery O2 Flow Rate FiO2 06/07/17 07:56 98.0 56 18 92/50 (64) 98 06/07/17 04:50 98.8 49 18 86/58 (67) 97 06/07/17 00:30 98.6 54 18 89/56 (67) 98 06/06/17 19:35 98.2 56 20 100/62 (75) 100 06/06/17 16:00 98.0 53 16 104/68 (80) 06/06/17 14:45 97.8 52 16 100/58 (72) 96 Room Air 06/06/17 14:30 51 15 98/55 (69) 96 Room Air 06/06/17 14:15 50 15 99/56 (70) 95 Room Air 06/06/17 14:00 97.9 48 15 106/54 (71) 95 Room Air 06/06/17 13:45 49 15 112/59 (76) 95 Room Air 06/06/17 13:30 55 14 114/57 (76) 100 Nasal Cannula 2 06/06/17 13:25 98.2 57 14 123/58 (79) 100 Nasal Cannula 3 06/06/17 11:59 06/06/17 10:36 65 18 99/69 (79) 99 Room Air I/O 06/06/17 06/06/17 06/06/17 06/07/17 06/07/17 06/07/17 07:00 15:00 23:00 07:00 15:00 23:00 Intake Total 1100 ml Output Total 100 ml 500 ml 400 ml Balance 1000 ml -500 ml -400 ml Intake Other 1100 ml Output Urine Total 500 ml 400 ml Estimated Blood Loss 50 ml Other 50 ml # Voids 0 1 1 Result Diagram: 06/06/17 1541 06/06/17 0830 Objective Remarks Chest is clear, regular rate and rhythm. Abdomen is soft and non-distended. Incisions clean and dry. Ext no CCE. A/P Assessment and Plan Night of surgery, S/P Laparoscopic left salpingectomy, left ectopic Plan for overnight stay ,discharge for AM, Instructed to return to office in 1- 2 weeks 06/07/17 8:00 mild discomfort many questions reviewed salpingectomy and potential for future conception works at [employer] and needs a note to return recommend one week off will come to office this week to see Valarie Concepcion MD Jun 07, 2017 08:16
--- NOTE | 2017-06-07 08:18 | HHI.DCPOC ---
Discharge Care Plan Report Symptoms to Your Doctor -Temperature above 100.5 degrees -Redness, of incision or excessive or foul smelling drainage -Unusual pain or calf pain -Increased vaginal bleeding -Painful or difficulty urinating -Feelings of extreme sadness or anxiety after 2 weeks Goals to Promote Your Health * To prevent worsening of your condition and complications * To maintain your health at the optimal level Directions to Meet Your Goals Take your medications as prescribed Follow your dietary instruction Follow activity as directed Ensure plenty of rest for recovery Drink fluids for hydration Keep your appointments as scheduled Take your immunizations and boosters as scheduled If your symptoms worsen call your PCP, if no PCP go to Urgent Care Center or Emergency Room Smoking is Dangerous to Your Health. Avoid second hand smoke Call the 24-hour crisis hotline for domestic abuse at Valarie Elias MD Jun 07, 2017 08:18
== END 2017-06-07 09:55 | disposition home or self-care (01) | DRG 777 ==
LOC: NEPC 07:39 → H1EA 15:10
PROVIDERS: ADMIT Obstetrics & Gynecology; ATTEND Obstetrics & Gynecology
PROC: 10T24ZZ Resection of Products of Conception, Ectopic, Percutaneous Endoscopic Approach (ICD-10-PCS; 2017-06-06)
PROC: 0UT64ZZ Resection of Left Fallopian Tube, Percutaneous Endoscopic Approach (ICD-10-PCS; principal; 2017-06-06 12:05)
DX: O00.90 Unspecified ectopic pregnancy without intrauterine pregnancy (principal); F12.90 Cannabis use, unspecified, uncomplicated
CPT/HCPCS: 76700; 76817; 80053; 81001; 84702; 84703; 85014; 85018; 85025; 85610; 85730; 86850; 86900; 86901; 88305; 94150; 96374; 96375; 96376; J1100; J1885; J2270; J2405; J2710; J3010; J7120

== ENCOUNTER 2017-06-10 10:23 | Emergency (ER) | payer MEDICAID ==
[~2017-06-10] VITALS: Ht 160 cm; Wt 80.0 kg
[~2017-06-10 10:23] MED LIST changes: -CIPR500T2 PO; +HYDR-3288 PO; -METR-1 PO; -NAPR500 PO; -OXYC-360 PO; -TETR500 PO
[2017-06-10 10:36] VITALS: BP 102/70; PULSE 67; RESP 18; TEMP 98.3; O2SAT 100
[2017-06-10] MEDS ORDERED: SODIUM CHLOR 0.9% 1000 ML INJ 1,000 ML IV SCH (12:01)
[2017-06-10] MEDS ORDERED: CLINDAMYCIN 600 MG/NS PREMIX 50 ML IV ONE (12:15)
[2017-06-10] MEDS ORDERED: SODIUM CHLORIDE 0.9% FLUSH 10 ML FLUSH IV FLUSH PRN (12:15)
[2017-06-10] MEDS ORDERED: MORPHINE SULFATE 4 MG/ML INJ IV PUSH ONE (12:15)
[2017-06-10] MEDS ORDERED: ONDANSETRON HCL 4 MG/2 ML VIAL IVP ONE (12:15)
[2017-06-10] MEDS ORDERED: KETOROLAC TROMETHAMINE 30 MG/ML (IVP) VIAL IVP ONE (12:15)
--- NOTE | 2017-06-10 12:47 | RADRPT ---
EXAM DATE/TIME: 06/10/2017 12:21 [facility] COMPARISON: No previous studies available for comparison. INDICATIONS : Pain at area of recent incision, 06/06/17. MEDICAL HISTORY : Previous ectopic . SURGICAL HISTORY : Removal of ectopic , 06/06/17. ENCOUNTER: Initial ACUITY: 3 days PAIN SCORE: 8/10 LOCATION: [facility] AREA EVALUATED: [facility] FINDINGS: In the area of incisional pain there is a complex heterogeneous area containing some fluid and soft t issue measuring up to about 11 mm in diameter. This could represent a focal area of edema and hemorrh age or possibly a phlegmonous mass. No drainable fluid collection at this point. CONCLUSION: 1. Complex 11 mm heterogeneous area at the location of incisional pain. Differential diagnosis includ es focal edema and hemorrhage or possibly a phlegmonous mass. James Lerner MD on June 10, 2017 at 12:44 Board Certified Radiologist. This report was verified electronically.
[2017-06-10 13:06] LABS: AUTOMATED NEUTROPHIL # 6.2 TH/MM3 (1.8-7.7); BASOPHIL % 0.4 % (0.0-2.0); EOSINOPHIL # 0.2 TH/MM3 (0-0.4); EOSINOPHIL % 1.9 % (0.0-4.0); HEMATOCRIT 26.6 % (35.0-46.0); HEMOGLOBIN 9.2 GM/DL (11.6-15.3); LYMPH % 22.9 % (9.0-44.0); LYMPHOCYTE # 2.1 TH/MM3 (1.0-4.8); MEAN CELL VOLUME 82.8 FL (80.0-100.0); MEAN CORPUSCULAR HEMOGLOBIN 28.6 PG (27.0-34.0); MEAN CORPUSCULAR HGB CONC 34.5 % (32.0-36.0); MEAN PLATELET VOLUME 6.8 FL (7.0-11.0); MONO % 6.2 % (0.0-8.0); MONOCYTE # 0.6 TH/MM3 (0-0.9); NEUT % 68.6 % (16.0-70.0); PLATELET COUNT 397 TH/MM3 (150-450); RED BLOOD COUNT 3.21 MIL/MM3 (4.00-5.30); RED CELL DISTRIBUTION WIDTH 15.3 % (11.6-17.2)
[2017-06-10 13:22] LABS: ALBUMIN 3.4 GM/DL (3.4-5.0); AST (GOT) 11 U/L (15-37); BLOOD UREA NITROGEN 9 MG/DL (7-18); CALCIUM 8.9 MG/DL (8.5-10.1); CHLORIDE 101 MEQ/L (98-107); CREATININE 0.66 MG/DL (0.50-1.00); GLOMERULAR FILTRATION RATE 100 ML/MIN (>89); GLUCOSE,RANDOM 82 MG/DL (74-106); SODIUM (NA) 137 MEQ/L (136-145)
[2017-06-10 13:23] LABS: ALT (GPT) 12 U/L (10-53)
[2017-06-10 13:25] LABS: ALKALINE PHOSPHATASE 53 U/L (45-117); TOTAL BILIRUBIN ADULT 0.3 MG/DL (0.2-1.0); TOTAL PROTEIN 6.5 GM/DL (6.4-8.2)
--- NOTE | 2017-06-10 13:29 | PD ---
HPI Chief Complaint: Wound/Suture/Staple Re-Check Time Seen by Provider: 11:57 Travel History International Travel<30 days: No Contact w/Intl Traveler<30days: No Traveled to known affect area: No History of Present Illness HPI 36-year-old female recently seen for ruptured ectopic requiring laparoscopic surgery on [address] Gonzalez was her surgeon. Patient was released yesterday, but has since developed increased pain, and erythema to the lower laparoscopic incision site. She denies fever, chills, or other symptoms. Pain is 8 out of 10. The redness has gotten worse since this morning. There is no drainage noted. She denies nausea, vomiting, or abdominal pain. Patient has been taking her Lortab for pain. Patient has no known drug allergies. PFSH Past Medical History Medical History: Denies Significant Hx Blood Disorders: No Cancer: No Cardiovascular Problems: No Diminished Hearing: No Endocrine: No Genitourinary: No Immune Disorder: No Musculoskeletal: No Neurologic: No Psychiatric: No Reproductive: No Respiratory: No Influenza Vaccination: No ?: Not : 5 Para: 2 Miscarriage: 2 Ectopic : Yes (06/06/17 SX) Past Surgical History Abdominal Surgery: Yes (LAPROSCOPIC FOR ECTOPIC ) Social History Alcohol Use: No Tobacco Use: No Substance Use: No Allergies-Medications (Allergen,Severity, Reaction): Coded Allergies: No Known Allergies (Verified Allergy, Unknown, 06/10/17) Reported Meds & Prescriptions Reported Meds & Active Scripts Active Bactrim DS (Sulfamethoxazole-Trimethoprim) 800-160 Mg Tab 1 Tab PO BID [place] (Hydrocodone-Acetaminophen) 7.5-325 mg Tab 1 Tab PO Q4H PRN 5 Days Review of Systems Except as stated in HPI: all other systems reviewed are Neg General / Constitutional: No: Fever, Chills Eyes: No: Visual changes HENT: No: Headaches Cardiovascular: No: Chest Pain or Discomfort Respiratory: No: Shortness of Breath Gastrointestinal: No: Abdominal Pain Genitourinary: No: Dysuria Musculoskeletal: No: Pain Skin: Positive Lesions (See history of present illness per), No Rash Neurologic: No: Weakness Psychiatric: No: Depression Endocrine: No: Polydipsia Hematologic/Lymphatic: No: Easy Bruising Physical Exam Narrative GENERAL: Patient appears in mild to moderate distress per SKIN: Warm and dry. Normal color. Normal turgor. Patient appears to have well healing incision sites to the abdomen. The lower middle incision site does have surrounding induration, warmth, and erythema extending out approximately half inch around the incision more to the upper aspect. There is no signs of wound dehiscence, or drainage. HEAD: Atraumatic. Normocephalic. EYES: Pupils equal and round. No scleral icterus. No injection or drainage. ENT: No nasal bleeding or discharge. Mucous membranes pink and moist. Pharynx is unremarkable. Airway patent. NECK: Trachea midline. Supple. CARDIOVASCULAR: Regular rate and rhythm. No murmurs gallops rubs. RESPIRATORY: No accessory muscle use. Clear to auscultation. Breath sounds equal bilaterally. GASTROINTESTINAL: Abdomen soft, patient has tenderness only at the incision site , nondistended. No visceral tenderness noted. Hepatic and splenic margins not palpable. MUSCULOSKELETAL: Extremities without clubbing, cyanosis, or edema. No obvious deformities. NEUROLOGICAL: Awake and alert. No obvious cranial nerve deficits. Motor grossly within normal limits. Five out of 5 muscle strength in the arms and legs. Normal speech. PSYCHIATRIC: Appropriate mood and affect; insight and judgment normal. Data Data Last Documented VS Vital Signs Date Time Temp Pulse Resp B/P (MAP) Pulse Ox O2 Delivery O2 Flow Rate FiO2 06/10/17 10:36 98.3 67 18 102/70 (81) 100 Orders Orders Complete Blood Count With Diff (06/10/17 12:01) Comprehensive Metabolic Panel (06/10/17 12:01) Lactic Acid (06/10/17 12:01) Iv Access Insert/Monitor (06/10/17 12:01) Ecg Monitoring (06/10/17 12:01) Oximetry (06/10/17 12:01) Morphine Inj (Morphine Inj) (06/10/17 12:15) Ondansetron Inj (Zofran Inj) (06/10/17 12:15) Sodium Chlor 0.9% 1000 Ml Inj (Ns 1000 M (06/10/17 12:01) Sodium Chloride 0.9% Flush (Ns Flush) (06/10/17 12:15) Ketorolac Inj (Toradol Inj) (06/10/17 12:15) Clindamycin 600 Mg/Ns Premix (Cleocin 60 (06/10/17 12:15) Us Soft Tissue (06/10/17 ) Labs Laboratory Tests Test 06/10/17 12:26 White Blood Count 9.0 TH/MM3 Red Blood Count 3.21 MIL/MM3 Hemoglobin 9.2 GM/DL Hematocrit 26.6 % Mean Corpuscular Volume 82.8 FL Mean Corpuscular Hemoglobin 28.6 PG Mean Corpuscular Hemoglobin Concent 34.5 % Red Cell Distribution Width 15.3 % Platelet Count 397 TH/MM3 Mean Platelet Volume 6.8 FL Neutrophils (%) (Auto) 68.6 % Lymphocytes (%) (Auto) 22.9 % Monocytes (%) (Auto) 6.2 % Eosinophils (%) (Auto) 1.9 % Basophils (%) (Auto) 0.4 % Neutrophils # (Auto) 6.2 TH/MM3 Lymphocytes # (Auto) 2.1 TH/MM3 Monocytes # (Auto) 0.6 TH/MM3 Eosinophils # (Auto) 0.2 TH/MM3 Basophils # (Auto) 0.0 TH/MM3 CBC Comment DIFF FINAL Differential Comment Blood Urea Nitrogen 9 MG/DL Creatinine 0.66 MG/DL Random Glucose 82 MG/DL Total Protein 6.5 GM/DL Albumin 3.4 GM/DL Calcium Level 8.9 MG/DL Alkaline Phosphatase 53 U/L Aspartate Amino Transf (AST/SGOT) 11 U/L Alanine Aminotransferase (ALT/SGPT) 12 U/L Total Bilirubin 0.3 MG/DL Sodium Level 137 MEQ/L Potassium Level 4.0 MEQ/L Chloride Level 101 MEQ/L Carbon Dioxide Level 29.0 MEQ/L Anion Gap 7 MEQ/L Estimat Glomerular Filtration Rate 100 ML/MIN Lactic Acid Level 0.7 mmol/L [facility] Medical Decision Making Medical Screen Exam Complete: Yes Emergency Medical Condition: Yes Medical Record Reviewed: Yes Differential Diagnosis Abdominal pain. Cellulitis. Abscess. Hematoma. Status post laparoscopy for ruptured ectopic . Narrative Course Labs ordered including CBC, CMP IV access is obtained the patient is given 600 mg clindamycin IV as well as 2 mg morphine IV, 4 mg Zofran IV, 30 mg ketorolac IV, and 1000 mL normal saline bolus. Ultrasound of the soft tissue area is performed. Ultrasound shows complex 11 mm heterogeneous area at the location of the incisional pain. Differential diagnosis includes focal edema and hemorrhage or possibly a phlegmonous mass. CBC is unremarkable. CMP is unremarkable. Lactic acid 0.7. Calls placed to Dr. Gonzalez the surgeon who performed the laparoscopy, and the patient was discussed. Patient is felt stable for discharge on Bactrim DS twice daily 7 days. Patient should continue the Lortab as needed for pain. Patient can also take ibuprofen 600 mg [address] daily[address] Patient should place hot packs to the area frequently. Patient should follow-up with Dr. Gonzalez's office as scheduled or return with worsening symptoms as needed. Diagnosis Primary Impression: Postoperative cellulitis of surgical wound Qualified Codes: T81.4XXA - Infection following a procedure, initial encounter Referrals: Maxwell Gonzalez MD Patient Instructions: Cellulitis (ED), General Instructions Additional Instructions: Ultrasound shows complex 11 mm heterogeneous area at the location of the incisional pain. Differential diagnosis includes focal edema and hemorrhage or possibly a phlegmonous mass. CBC is unremarkable. CMP is unremarkable. Lactic acid 0.7. Calls placed to Dr. Gonzalez the surgeon who performed the laparoscopy, and the patient was discussed. Patient is felt stable for discharge on Bactrim DS twice daily 7 days. Patient should continue the Lortab as needed for pain. Patient can also take ibuprofen 600 mg 3 times daily[address] Patient should place hot packs to the area frequently. Patient should follow-up with Dr. Gonzalez's office as scheduled or return with worsening symptoms as needed. Scripts Sulfamethoxazole-Trimethoprim (Bactrim DS) 800-160 Mg Tab 1 TAB PO BID for Infection, #14 TAB 0 Refills Prov: Willard Perera MD 06/10/17 Disposition: 01 DISCHARGE HOME Condition: Stable Grant Nunn Jun 10, 2017 13:29
[2017-06-10] MEDS ORDERED: BACT800T5 PO (13:47)
[2017-06-10] MEDS ORDERED: IBUP-232 PO (13:59)
== END 2017-06-10 15:08 | disposition home or self-care (01) ==
LOC: NEPD 10:23
DX: T81.4XXA Infection following a procedure, initial encounter (principal); X58.XXXA Exposure to other specified factors, initial encounter
CPT/HCPCS: 76999; 80053; 83605; 85025; 96361; 96374; 96375; 99284; J1885; J2270; J2405; J7030

== ENCOUNTER 2017-06-22 09:24 | Emergency (ER) | payer MEDICAID ==
[~2017-06-22] VITALS: Ht 160 cm; Wt 79.0 kg
[~2017-06-22 09:24] MED LIST changes: +BACT800T5 PO; +IBUP-232 PO
[2017-06-22 09:26] VITALS: BP 121/59; PULSE 69; RESP 16; TEMP 98.1; O2SAT 100
[2017-06-22] MEDS ORDERED: BACT800T5 PO (10:46)
--- NOTE | 2017-06-22 10:46 | PD ---
HPI Chief Complaint: Skin Problem Time Seen by Provider: 10:32 Travel History International Travel<30 days: No Contact w/Intl Traveler<30days: No Traveled to known affect area: No History of Present Illness HPI 36-year-old woman presents to the emergency department for drainage from a laparoscopic incision. She had recent surgery for an ectopic . She was seen following that for an infection in her suprapubic laparoscopy incision. This significantly improved but she still had a knot there. Today she noticed copious thin yellow drainage from one side of the surgical site and a decrease in the size of this nodule. She has some tenderness and pain there. No erythema redness warmth or fevers. Otherwise doing well. Has not followed up with Dr. Gonzalez yet. History Past Medical History Medical History: Denies Significant Hx : 5 Para: 2 Social History Alcohol Use: No Tobacco Use: No Allergies-Medications (Allergen,Severity, Reaction): Coded Allergies: No Known Allergies (Verified Allergy, Unknown, 06/22/17) Reported Meds & Prescriptions Reported Meds & Active Scripts Active No Active Prescriptions or Reported Medications Review of Systems Except as stated in HPI: all other systems reviewed are Neg Physical Exam Narrative GENERAL: Well-appearing 28-year-old woman, no acute distress. SKIN: Warm and dry. CARDIOVASCULAR: Warm and well perfused. RESPIRATORY: Normal rate and effort. ABDOMINAL: Well-healing surgical scars. In the very lower part of the abdomen, there is a pinhole site on the lateral side of the incision is draining yellow fluid. Small palpable pea-sized nodule underneath the incision. Mild tenderness. No erythema redness warmth or other evidence of infection. NEUROLOGICAL: Awake and alert. No gross deficits. Data Data Last Documented VS Vital Signs Date Time Temp Pulse Resp B/P (MAP) Pulse Ox O2 Delivery O2 Flow Rate FiO2 06/22/17 09:26 98.1 69 16 121/59 (79) 100 MDM Medical Decision Making Medical Screen Exam Complete: Yes Emergency Medical Condition: Yes Differential Diagnosis Seroma, abscess, infection, other Narrative Course Medical decision-making 36-year-old woman who presents to the ED if it sounds like spontaneous a draining seroma. She does well. I will see any evidence of infection. Recommend observation. We will give her a prescription for Bactrim to start if she develops any erythema redness or swelling but I think this is unnecessary. Also instructed her to follow-up with Dr. Gonzalez as previously directed. Diagnosis Primary Impression: Abdominal wall seroma Additional Instructions: Follow-up with Dr. Gonzalez this week or next. If you develop worsening redness warmth pain or swelling to the area, take antibiotics as prescribed. Return to the emergency department for any new or worsening symptoms. Med/Other Pt SpecificInfo: Prescription(s) given Scripts Sulfamethoxazole-Trimethoprim (Bactrim DS) 800-160 Mg Tab 1 TAB PO BID for Infection, #14 TAB 0 Refills Prov: Maxwell Grijalva MD 06/22/17 Disposition: 01 DISCHARGE HOME Condition: Stable Maxwell Grijalva MD Jun 22, 2017 10:46
== END 2017-06-22 10:51 | disposition home or self-care (01) ==
LOC: NEPD 09:24
DX: N99.843 Postprocedural seroma of a genitourinary system organ or structure following other procedure (principal); Z98.890 Other specified postprocedural states
CPT/HCPCS: 99283

== ENCOUNTER 2017-09-07 19:55 | Inpatient (IN) | payer MEDICAID ==
[~2017-09-07] VITALS: Ht 160 cm; Wt 97.5 kg
[~2017-09-07 19:55] MED LIST changes: -HYDR-3288 PO; -IBUP-232 PO
[2017-09-07 20:01] VITALS: PULSE 80; RESP 18; TEMP 97.7; O2SAT 98
--- NOTE | 2017-09-07 20:41 | RADRPT ---
EXAM DATE: 09/07/2017 8:36 PM EDT AGE/SEX: 36 years / Female INDICATIONS: Patient fell roller skating today and complains of left wrist pain. CLINICAL DATA: This is the patient's initial encounter. Patient reports that signs and symptoms have been present for 1 day and indicates a pain score of 9/10. MEDICAL/SURGICAL HISTORY: None. None. COMPARISON: No prior [place] exams available for comparison. FINDINGS: Comminuted fracture of the distal radius with widening of the distal radioulnar joint. There is also an apparent comminuted fracture of the scaphoid. Additionally, there is an ulnar styloid fracture. So ft tissue swelling about the wrist. CONCLUSION: 1. Comminuted distal radial fracture with widening of the distal radioulnar joint and associated uln ar styloid fracture. 2. Comminuted fracture of the scaphoid. Electronically signed by: Jay Silva MD 09/07/2017 8:40 PM EDT
[2017-09-07] MEDS ORDERED: MORPHINE SULFATE 4 MG/ML INJ IV PUSH ONE (20:45)
[2017-09-07] MEDS ORDERED: ONDANSETRON ODT 4 MG TAB PO ONE (20:45)
--- NOTE | 2017-09-07 20:49 | PD ---
HPI Chief Complaint: Injury Time Seen by Provider: 20:36 Travel History International Travel<30 days: No Contact w/Intl Traveler<30days: No Traveled to known affect area: No History of Present Illness HPI Patient is a 28-year-old female presenting to the emergency department for evaluation of left wrist pain. Patient states she was rollerskating when she fell backwards landing on her buttocks and her left arm. She reports pain in her buttocks denies any numbness or tingling in her lower extremities, no bladder bowel incontinence, no saddle paresthesia. She is ambulatory. She reports the pain in her wrist is a 10 out of 10, shooting and throbbing in nature, constant. Patient denies any head injury or loss of consciousness. She denies any significant past medical history. Symptom onset was sudden, symptoms are severe in nature. PFSH Past Medical History Medical History: Denies Significant Hx Blood Disorders: No Cancer: No Cardiovascular Problems: No Diminished Hearing: No Endocrine: No Genitourinary: No Immune Disorder: No Musculoskeletal: No Neurologic: No Psychiatric: No Reproductive: No Respiratory: No ?: Not : 5 Para: 2 Miscarriage: 2 Ectopic : Yes (06/06/17 SX) Past Surgical History Gynecologic Surgery: Yes (Laparoscopic due to ectopic .) Social History Alcohol Use: No Tobacco Use: No Substance Use: No Allergies-Medications (Allergen,Severity, Reaction): Coded Allergies: No Known Allergies (Verified Allergy, Unknown, 06/22/17) Reported Meds & Prescriptions Reported Meds & Active Scripts Active Bactrim DS (Sulfamethoxazole-Trimethoprim) 800-160 Mg Tab 1 Tab PO BID Review of Systems Except as stated in HPI: all other systems reviewed are Neg Musculoskeletal: Positive: Myalgias, Arthralgias, Limited ROM, Edema, Pain, Other (Deformity to left wrist) Skin: Positive Change in Pigmentation Neurologic: Positive: Sensory Disturbance (Left third, fourth and fifth fingers ) Physical Exam Narrative GENERAL: Well-developed, well-nourished, alert female. Presenting in no acute distress, appears uncomfortable. SKIN: Warm and dry. Ecchymosis noted to the lateral aspect of the left wrist. HEAD: Atraumatic. Normocephalic. EYES: Pupils equal and round. No scleral icterus. No injection or drainage. ENT: No nasal bleeding or discharge. Mucous membranes pink and moist. NECK: Trachea midline. No JVD. CARDIOVASCULAR: Regular rate and rhythm. RESPIRATORY: No accessory muscle use. Clear to auscultation. Breath sounds equal bilaterally. GASTROINTESTINAL: Abdomen soft, non-tender, nondistended. Hepatic and splenic margins not palpable. MUSCULOSKELETAL: Extremities without clubbing, cyanosis. Deformity noted to left wrist. 2+ radial pulse, brisk less than 3 second capillary refill. Mild edema noted at the wrist. NEUROLOGICAL: Awake and alert. No obvious cranial nerve deficits. Motor grossly within normal limits. Five out of 5 muscle strength in the arms and legs. Normal speech. PSYCHIATRIC: Appropriate mood and affect; insight and judgment normal. Data Data Last Documented VS Vital Signs Date Time Temp Pulse Resp B/P (MAP) Pulse Ox O2 Delivery O2 Flow Rate FiO2 09/07/17 20:54 85 20 122/83 (96) 99 Room Air 09/07/17 20:01 97.7 Orders Orders Wrist, Complete ([id number]) (09/07/17 20:06) Morphine Inj (Morphine Inj) (09/07/17 20:45) Ondansetron Odt (Zofran Odt) (09/07/17 20:45) Splinting (09/07/17 ) Splint Or Brace Apply/Monitor (09/07/17 20:42) Ct Hand W/O Contrast (09/07/17 ) Ed Urine Pregnancytest Poc (09/07/17 21:28) Hydromorphone Pf Inj (Dilaudid Pf Inj) (09/07/17 21:45) Sodium Chlor 0.9% 1000 Ml Inj (Ns 1000 M (09/07/17 21:45) Complete Blood Count With Diff (09/07/17 22:24) Comprehensive Metabolic Panel (09/07/17 22:24) Act Partial Throm Time (Ptt) (09/07/17 22:24) Prothrombin Time / Inr (Pt) (09/07/17 22:24) Sling Cradle Arm (09/07/17 ) Fiberglass Sugartong Sp Ad Arm (09/07/17 ) Admit Order (Ed Use Only) (09/07/17 22:48) [facility] Medical Decision Making Medical Screen Exam Complete: Yes Emergency Medical Condition: Yes Interpretation(s) Last Impressions Wrist X-Ray 5/30/18 2006 Signed Impressions: CONCLUSION: 1. Comminuted distal radial fracture with widening of the distal radioulnar michael int and associated ulnar styloid fracture. 2. Comminuted fracture of the scaphoid. Upper Extremity CT 09/07/17 0000 Signed Impressions: CONCLUSION: 1. Impacted comminuted fracture of the distal radius, as described above. 2. Associated disruption of the distal radioulnar joint with fracture of the u lnar styloid. 3. Chronic appearing fracture of the scaphoid waist. Vital Signs Date Time Temp Pulse Resp B/P (MAP) Pulse Ox O2 Delivery O2 Flow Rate FiO2 09/07/17 20:01 97.7 80 18 98 Differential Diagnosis Fracture versus sprain versus strain versus contusion versus other Narrative Course Patient is a 36-year-old female presenting for evaluation of left wrist pain after sustaining a mechanical fall. Patient is neurovascularly intact. IV access established, pain medication ordered. X-rays were ordered in triage. X- ray shows comminuted distal radial fracture with widening of the distal radioulnar joint and associated ulnar styloid fracture. Comminuted fracture of the scaphoid. Discussed the findings with Dr. Cruz, hand surgeon. He requested a CT scan of the wrist. CT shows Impacted comminuted fracture of the distal radius. Associated disruption of the distal radioulnar joint with fracture of the ulnar styloid. Chronic appearing fracture of the scaphoid waist. Patient was placed in a short arm splint. Patient's pain has been controlled after administration of hydromorphone. Patient will likely have the surgical repair on or Tuesday. Patient was made aware of all findings and plan of care and is agreeable. Dr. Abel accepted admission. Admit orders placed. Preop labs ordered and pending. Diagnosis Primary Impression: Wrist fracture Qualified Codes: S62.102A - Fracture of unspecified carpal bone, left wrist, initial encounter for closed fracture Admitting Information Admitting Physician Requests: Admit Condition: Stable Milvia Yao September 07, 2017 20:49
[2017-09-07 20:54] VITALS: BP 122/83; PULSE 85; RESP 20; O2SAT 99
[2017-09-07] MEDS: HYDROmorphone HCL PF 0.5 MG/0.5 ML SYRINGE IV PUSH ONE ×2 (21:43→22:00)
--- NOTE | 2017-09-07 21:44 | PD ---
Physical Exam Narrative I, Dr. Dotson, have reviewed the advance practice practitioner's documentation and am in agreement, met with the patient face to face, made the diagnosis, and the medical decision making was done by me. *My assessment and Findings: Scaphoid fracture vs. wrist fracture vs. contusion 36yo F with no PMH presents to the ED with left wrist pain s/p fall onto left hand while roller skating at 7:40pm today. Denies any head trauma or other injuries. Denies any focal weakness. She told me that her left wrist popped out in the radial aspect and she popped it back in. Xray left wrist showed comminuted distal radial fracture with widening of the distal radioulnar joint and associated ulnar styloid fracture. Comminuted fracture of the scaphoid. Discussed with Dr. Timmons from hand who recommend CT hand and he will see her. Pt's left arm placed in splint. As per Dr. Timmons, he wants pt admitted to medicine, he will consult and NPO after midnight. Discussed with Dr. Abel who accepted the patient. Data Data Last Documented VS Vital Signs Date Time Temp Pulse Resp B/P (MAP) Pulse Ox O2 Delivery O2 Flow Rate FiO2 09/07/17 20:54 85 20 122/83 (96) 99 Room Air 09/07/17 20:01 97.7 Orders Orders Wrist, Complete ([id number]) (09/07/17 20:06) Morphine Inj (Morphine Inj) (09/07/17 20:45) Ondansetron Odt (Zofran Odt) (09/07/17 20:45) Splinting (09/07/17 ) Splint Or Brace Apply/Monitor (09/07/17 20:42) Ct Hand W/O Contrast (09/07/17 ) Ed Urine Pregnancytest Poc (09/07/17 21:28) Hydromorphone Pf Inj (Dilaudid Pf Inj) (09/07/17 21:45) Sodium Chlor 0.9% 1000 Ml Inj (Ns 1000 M (09/07/17 21:45) Complete Blood Count With Diff (09/07/17 22:24) Comprehensive Metabolic Panel (09/07/17 22:24) Act Partial Throm Time (Ptt) (09/07/17 22:24) Prothrombin Time / Inr (Pt) (09/07/17 22:24) Sling Cradle Arm (09/07/17 ) Fiberglass Sugartong Sp Ad Arm (09/07/17 ) Admit Order (Ed Use Only) (09/07/17 22:48) Labs Laboratory Tests Test 09/07/17 21:00 White Blood Count 7.9 TH/MM3 Red Blood Count 4.18 MIL/MM3 Hemoglobin 10.9 GM/DL Hematocrit 33.3 % Mean Corpuscular Volume 79.6 FL Mean Corpuscular Hemoglobin 26.2 PG Mean Corpuscular Hemoglobin Concent 32.9 % Red Cell Distribution Width 16.0 % Platelet Count 422 TH/MM3 Mean Platelet Volume 7.7 FL Neutrophils (%) (Auto) 62.3 % Lymphocytes (%) (Auto) 27.2 % Monocytes (%) (Auto) 7.9 % Eosinophils (%) (Auto) 1.7 % Basophils (%) (Auto) 0.9 % Neutrophils # (Auto) 4.9 TH/MM3 Lymphocytes # (Auto) 2.1 TH/MM3 Monocytes # (Auto) 0.6 TH/MM3 Eosinophils # (Auto) 0.1 TH/MM3 Basophils # (Auto) 0.1 TH/MM3 CBC Comment DIFF FINAL Differential Comment Prothrombin Time 10.2 SEC Prothromb Time International Ratio 1.0 RATIO Activated Partial Thromboplast Time 27.9 SEC Blood Urea Nitrogen 17 MG/DL Creatinine 0.80 MG/DL Random Glucose 76 MG/DL Total Protein 7.4 GM/DL Albumin 4.1 GM/DL Calcium Level 8.8 MG/DL Alkaline Phosphatase 48 U/L Aspartate Amino Transf (AST/SGOT) 17 U/L Alanine Aminotransferase (ALT/SGPT) 24 U/L Total Bilirubin 0.3 MG/DL Sodium Level 135 MEQ/L Potassium Level 3.6 MEQ/L Chloride Level 102 MEQ/L Carbon Dioxide Level 20.0 MEQ/L Anion Gap 13 MEQ/L Estimat Glomerular Filtration Rate 80 ML/MIN [facility] Supervised Visit with NIDIA: Yes Diagnosis Primary Impression: Wrist fracture Qualified Codes: S62.102A - Fracture of unspecified carpal bone, left wrist, initial encounter for closed fracture Admitting Information Admitting Physician Requests: Admit Felicia Dotson DO September 07, 2017 21:44
[2017-09-07] MEDS ORDERED: SODIUM CHLOR 0.9% 1000 ML INJ 1,000 ML IV ONE (21:45)
--- NOTE | 2017-09-07 22:49 | RADRPT ---
EXAM DATE: 09/07/2017 10:37 PM EDT AGE/SEX: 36 years / Female INDICATIONS: Evaluate fracture. CLINICAL DATA: This is the patient's initial encounter. Patient reports that signs and symptoms have been present for 1 day and indicates a pain score of 10/10. MEDICAL/SURGICAL HISTORY: . . RADIATION DOSE: 29.01 CTDI (mGy) COMPARISON: No prior [place] exams available for comparison. TECHNIQUE: Multiple contiguous axial images were acquired using a multirow detector CT scanner witho ut contrast. Multiplanar reconstruction was performed in the sagittal and coronal planes. Using aut omated exposure control and adjustment of the mA and/or kV according to patient size, radiation dose was kept as low as reasonably achievable to obtain optimal diagnostic quality images. FINDINGS: Bones: Impacted type comminuted fracture of the distal radius with mild dorsal angulation of the dis hardeep fragment. The fracture extends to the radiocarpal joint as well as the distal radioulnar joint. T here is also fracture of the ulnar styloid. There is a fracture of the scaphoid waist with corticated margins and fragmentation/cystic change consistent with a chronic scaphoid fracture. Remaining carpa l bones appear intact. Joints: Widening of the distal radioulnar joint. Remaining joint spaces appear maintained. Soft Tissues: Soft tissue prominence overlying the wrist otherwise unremarkable for noncontrast stud y. Other: No foreign bodies seen. CONCLUSION: 1. Impacted comminuted fracture of the distal radius, as described above. 2. Associated disruption of the distal radioulnar joint with fracture of the ulnar styloid. 3. Chronic appearing fracture of the scaphoid waist. Electronically signed by: Jay Silva MD 09/07/2017 10:48 PM EDT
[2017-09-07 23:10] LABS: AUTOMATED NEUTROPHIL # 4.9 TH/MM3 (1.8-7.7); BASOPHIL # 0.1 TH/MM3 (0-0.2); BASOPHIL % 0.9 % (0.0-2.0); EOSINOPHIL # 0.1 TH/MM3 (0-0.4); EOSINOPHIL % 1.7 % (0.0-4.0); HEMATOCRIT 33.3 % (35.0-46.0); HEMOGLOBIN 10.9 GM/DL (11.6-15.3); LYMPH % 27.2 % (9.0-44.0); LYMPHOCYTE # 2.1 TH/MM3 (1.0-4.8); MEAN CELL VOLUME 79.6 FL (80.0-100.0); MEAN CORPUSCULAR HEMOGLOBIN 26.2 PG (27.0-34.0); MEAN CORPUSCULAR HGB CONC 32.9 % (32.0-36.0); MEAN PLATELET VOLUME 7.7 FL (7.0-11.0); MONO % 7.9 % (0.0-8.0); MONOCYTE # 0.6 TH/MM3 (0-0.9); NEUT % 62.3 % (16.0-70.0); PLATELET COUNT 422 TH/MM3 (150-450); RED BLOOD COUNT 4.18 MIL/MM3 (4.00-5.30); WHITE BLOOD COUNT 7.9 TH/MM3 (4.0-11.0)
[2017-09-07 23:20] LABS: PROTHROMBIN TIME - PATIENT 10.2 SEC (9.8-11.6)
[2017-09-07 23:21] LABS: ALBUMIN 4.1 GM/DL (3.4-5.0); BLOOD UREA NITROGEN 17 MG/DL (7-18); CALCIUM 8.8 MG/DL (8.5-10.1); CHLORIDE 102 MEQ/L (98-107); GLOMERULAR FILTRATION RATE 80 ML/MIN (>89); GLUCOSE,RANDOM 76 MG/DL (74-106); SODIUM (NA) 135 MEQ/L (136-145)
[2017-09-07 23:23] LABS: ALT (GPT) 24 U/L (10-53); AST (GOT) 17 U/L (15-37)
[2017-09-07 23:24] LABS: ALKALINE PHOSPHATASE 48 U/L (45-117); TOTAL BILIRUBIN ADULT 0.3 MG/DL (0.2-1.0); TOTAL PROTEIN 7.4 GM/DL (6.4-8.2)
[2017-09-07] MEDS ORDERED: HYDROmorphone HCL PF 0.5 MG/0.5 ML SYRINGE IV PUSH ONE (23:45)
[2017-09-08] MEDS ORDERED: LACTULOSE SYRUP 20 GM/30 ML CUP PO PRN (00:30)
[2017-09-08] MEDS ORDERED: NALOXONE HCL 0.4 MG/ML AMP IV PUSH PRN (00:30)
[2017-09-08] MEDS ORDERED: BISACODYL 10 MG SUPP RECTAL PRN (00:30)
[2017-09-08] MEDS ORDERED: SENNOSIDES 8.6 MG TAB PO PRN (00:30)
[2017-09-08] MEDS ORDERED: SODIUM CHLORIDE 0.9% FLUSH 10 ML FLUSH IV FLUSH PRN (00:30)
[2017-09-08] MEDS ORDERED: ACETAMINOPHEN 325 MG TAB PO PRN (00:30)
[2017-09-08] MEDS: HYDROmorphone HCL PF 2 MG/ML VIAL IV PUSH PRN ×8 (01:26→23:40)
[2017-09-08] MEDS: ONDANSETRON ODT 4 MG TAB PO PRN ×3 (01:29→19:36)
[2017-09-08 01:36] VITALS: BP 113/63; PULSE 71; RESP 16; O2SAT 98
[2017-09-08] MEDS: SODIUM CHLOR 0.9% 1000 ML INJ 1,000 ML IV SCH ×2 (01:40→20:36)
--- NOTE | 2017-09-08 01:45 | HHI.HP ---
[facility] Primary Care Physician No Primary Care Physician Admission Diagnosis Wrist fracture Diagnoses: Travel History International Travel<30 Days: No Contact w/Intl Traveler <30 Da: No Traveled to Known Affected Are: No History of Present Illness 36-year-old female. The patient reports she was rollerskating when she fell backwards onto her outstretched left arm. She reports that her wrist was at a strange angle and she "put it back into place" to prevent her son from seeing it. When she did this she heard and felt a pop. She has no other complaints at this time. Denies sustaining any other injuries during the fall. No loss of consciousness or head trauma. Review of Systems Except as stated in HPI: all other systems reviewed are Neg Denies fever or chills Denies blurry vision, otorrhea, rhinorrhea Denies sore throat and cough No chest pain, palpitations No shortness of breath or wheezing No abdominal pain Denies constipation/diarrhea/nausea/vomiting Denies muscle pain Denies focal weakness No rashes Past Family Social History Past Medical History None Past Surgical History Ectopic Reported Medications None Allergies: Coded Allergies: No Known Allergies (Verified Allergy, Unknown, 06/22/17) Family History Negative for CAD/DM Social History Denies alcohol, tobacco and illicit drugs Physical Exam Vital Signs Vital Signs Date Time Temp Pulse Resp B/P (MAP) Pulse Ox O2 Delivery O2 Flow Rate FiO2 09/07/17 20:54 85 20 122/83 (96) 99 Room Air 09/07/17 20:01 97.7 80 18 98 Physical Exam GENERAL: female sitting up in bed SKIN: No rashes, ecchymoses or lesions. Cool and dry. HEAD: Atraumatic. Normocephalic. No temporal or scalp tenderness. EYES: Pupils equal round and reactive. Extraocular motions intact. No scleral icterus. No injection or drainage. ENT: Nose without bleeding, purulent drainage or septal hematoma. Throat without erythema, tonsillar hypertrophy or exudate. Uvula midline. Airway patent. NECK: Trachea midline. No JVD or lymphadenopathy. Supple, nontender, no meningeal signs. CARDIOVASCULAR: Regular rate and rhythm without murmurs, gallops, or rubs. RESPIRATORY: Clear to auscultation. Breath sounds equal bilaterally. No wheezes , rales, or rhonchi. GASTROINTESTINAL: Abdomen soft, non-tender, nondistended. No hepato-splenomegaly , or palpable masses. No guarding. MUSCULOSKELETAL: Extremities without clubbing, cyanosis, or edema. Left wrist and forearm splinted. Neurovascularly intact. Able to move all 5 fingers. Capillary refill less than 2 seconds. NEUROLOGICAL: Awake and alert. Cranial nerves II through XII intact. Motor and sensory grossly within normal limits. Normal speech. Laboratory Laboratory Tests Test 09/07/17 21:00 White Blood Count 7.9 Red Blood Count 4.18 Hemoglobin 10.9 Hematocrit 33.3 Mean Corpuscular Volume 79.6 Mean Corpuscular Hemoglobin 26.2 Mean Corpuscular Hemoglobin Concent 32.9 Red Cell Distribution Width 16.0 Platelet Count 422 Mean Platelet Volume 7.7 Neutrophils (%) (Auto) 62.3 Lymphocytes (%) (Auto) 27.2 Monocytes (%) (Auto) 7.9 Eosinophils (%) (Auto) 1.7 Basophils (%) (Auto) 0.9 Neutrophils # (Auto) 4.9 Lymphocytes # (Auto) 2.1 Monocytes # (Auto) 0.6 Eosinophils # (Auto) 0.1 Basophils # (Auto) 0.1 CBC Comment DIFF FINAL Differential Comment Prothrombin Time 10.2 Prothromb Time International Ratio 1.0 Activated Partial Thromboplast Time 27.9 Blood Urea Nitrogen 17 Creatinine 0.80 Random Glucose 76 Total Protein 7.4 Albumin 4.1 Calcium Level 8.8 Alkaline Phosphatase 48 Aspartate Amino Transf (AST/SGOT) 17 Alanine Aminotransferase (ALT/SGPT) 24 Total Bilirubin 0.3 Sodium Level 135 Potassium Level 3.6 Chloride Level 102 Carbon Dioxide Level 20.0 Anion Gap 13 Estimat Glomerular Filtration Rate 80 Result Diagram: 09/07/17209909/07/172099 Caprini VTE Risk Assessment Caprini VTE Risk Assessment: No/Low Risk (score <= 1) Caprini Risk Assessment Model Point Value = 1 Point Value = 2 Point Value = 3 Point Value = 5 Age 41-60 Minor surgery BMI > 25 kg/m2 Swollen legs Varicose veins or History of unexplained or recurrent spontaneous Oral contraceptives or hormone replacement Sepsis (< 1 month) Serious lung disease, including pneumonia (< 1 month) Abnormal pulmonary function Acute myocardial infarction Congestive heart failure (< 1 month) History of inflammatory bowel disease Medical patient at bed rest Age 61-74 Arthroscopic surgery Major open surgery (> 45 min) Laparoscopic surgery (> 45 min) Malignancy Confined to bed (> 72 hours) Immobilizing plaster cast Central venous access Age >= 75 History of VTE Family history of VTE Factor V Leiden Prothrombin [id number] Lupus anticoagulant Anticardiolipin antibodies Elevated serum homocysteine Heparin-induced thrombocytopenia Other congenital or acquired thrombophilia Stroke (< 1 month) Elective arthroplasty Hip, pelvis, or leg fracture Acute spinal cord injury (< 1 month) Prophylaxis Regimen Total Risk Factor Score Risk Level Prophylaxis Regimen 0-1 Low Early ambulation 2 Moderate Order ONE of the following: *Sequential Compression Device (SCD) *Heparin 5000 units SQ BID 3-4 Higher Order ONE of the following medications: *Heparin 5000 units SQ TID *Enoxaparin/Lovenox 40 mg SQ daily (WT < 150 kg, CrCl > 30 mL/min) *Enoxaparin/Lovenox 30 mg SQ daily (WT < 150 kg, CrCl > 10-29 mL/min) *Enoxaparin/Lovenox 30 mg SQ BID (WT < 150 kg, CrCl > 30 mL/min) AND/OR *Sequential Compression Device (SCD) 5 or more Highest Order ONE of the following medications: *Heparin 5000 units SQ TID (Preferred with Epidurals) *Enoxaparin/Lovenox 40 mg SQ daily (WT < 150 kg, CrCl > 30 mL/min) *Enoxaparin/Lovenox 30 mg SQ daily (WT < 150 kg, CrCl > 10-29 mL/min) *Enoxaparin/Lovenox 30 mg SQ BID (WT < 150 kg, CrCl > 30 mL/min) AND *Sequential Compression Device (SCD) Assessment and Plan Assessment and Plan Assessment/plan: 1. Hand/wrist fracture Wrist x-ray significant for comminuted distal radial fracture and ulnar fracture. Comminuted fracture of the scaphoid. Orthopedic surgery consulted, appreciate assistance N.p.o. Milagrosaudid for pain FEN N.p.o. NS at 100 cc/hour Electrolytes: Monitor and replete as needed Physician Certification 2 Midnight Certification Type: Admission for Inpatient Services Order for Inpatient Services The services are ordered in accordance with Medicare regulations or non- Medicare payer requirements, as applicable. In the case of services not specified as inpatient-only, they are appropriately provided as inpatient services in accordance with the 2-midnight benchmark. Estimated LOS (days): 2 2 days is the estimated time the patient will need to remain in the hospital, assuming treatment plan goals are met and no additional complications. Post-Hospital Plan: Not yet determined Therese Abel MD September 08, 2017 01:45
[2017-09-08] MEDS ORDERED: PROMETHAZINE INJ 25 MG/ML VIAL IM ONE (04:45)
[2017-09-08 05:09] VITALS: BP 103/58; PULSE 74; RESP 16; O2SAT 99
[2017-09-08 05:28] LABS: AUTOMATED NEUTROPHIL # 8.4 TH/MM3 (1.8-7.7); BASOPHIL % 0.4 % (0.0-2.0); EOSINOPHIL % 0.2 % (0.0-4.0); HEMATOCRIT 30.7 % (35.0-46.0); HEMOGLOBIN 10.1 GM/DL (11.6-15.3); LYMPH % 9.4 % (9.0-44.0); LYMPHOCYTE # 0.9 TH/MM3 (1.0-4.8); MEAN CELL VOLUME 79.8 FL (80.0-100.0); MEAN CORPUSCULAR HEMOGLOBIN 26.2 PG (27.0-34.0); MEAN CORPUSCULAR HGB CONC 32.8 % (32.0-36.0); MEAN PLATELET VOLUME 7.8 FL (7.0-11.0); MONO % 6.3 % (0.0-8.0); MONOCYTE # 0.6 TH/MM3 (0-0.9); NEUT % 83.7 % (16.0-70.0); PLATELET COUNT 351 TH/MM3 (150-450); RED BLOOD COUNT 3.85 MIL/MM3 (4.00-5.30); RED CELL DISTRIBUTION WIDTH 16.1 % (11.6-17.2); WHITE BLOOD COUNT 10.1 TH/MM3 (4.0-11.0)
[2017-09-08 05:37] LABS: BICARBONATE 18.7 MEQ/L (21.0-32.0); CREATININE 0.53 MG/DL (0.50-1.00)
[2017-09-08 08:00] VITALS: BP 132/65; PULSE 75; RESP 18; O2SAT 100
[2017-09-08] MEDS: SODIUM CHLORIDE 0.9% FLUSH 10 ML FLUSH IV FLUSH SCH ×2 (09:00→20:37)
[2017-09-08] MEDS ORDERED: POVIDONE IODINE 5% (ANTISEPSIS KIT) 4 APPLICATIONS EACH NARE PRN (12:15)
[2017-09-08] MEDS ORDERED: LACTATED RINGER'S 1000 ML IV PRN (12:15)
[2017-09-08] MEDS ORDERED: METOPROLOL TARTRATE 25 MG TAB PO PRN (12:15)
[2017-09-08] MEDS ORDERED: SODIUM CHLORID 0.9% 500 ML IV PRN (12:15)
[2017-09-08] MEDS ORDERED: CHLORHEXIDINE GLUCONATE 2 % 1 PACK (2 CLOTHS) TOPICAL PRN (12:15)
[2017-09-08] MEDS: oxyCODONE/ACETAMINOPHEN 10 MG/325 MG TAB PO PRN ×2 (17:58→22:50)
[2017-09-08 20:00] VITALS: BP 122/73; PULSE 66; RESP 18; TEMP 98.2; O2SAT 98
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
[2017-09-09] VITALS: BP 115/74; PULSE 57; RESP 18; TEMP 98.9; O2SAT 95
[2017-09-09] MEDS: HYDROmorphone HCL PF 2 MG/ML VIAL IV PUSH PRN ×5 (02:40→20:45)
[2017-09-09] MEDS: oxyCODONE/ACETAMINOPHEN 10 MG/325 MG TAB PO PRN ×5 (03:30→23:20)
[2017-09-09 04:00] VITALS: BP 120/72; PULSE 79; RESP 18; TEMP 97.3; O2SAT 97
[2017-09-09] MEDS: SODIUM CHLOR 0.9% 1000 ML INJ 1,000 ML IV SCH ×2 (06:17→19:04)
[2017-09-09] MEDS: SODIUM CHLORIDE 0.9% FLUSH 10 ML FLUSH IV FLUSH SCH ×2 (07:30→20:44)
[2017-09-09 08:00] VITALS: BP 110/72; PULSE 83; RESP 17; TEMP 98.7; O2SAT 98
[2017-09-09] MEDS ORDERED: SODIUM CHLORIDE 0.9% INJ 0 ML ONE (13:15)
[2017-09-09] MEDS ORDERED: BACITRACIN TOP OINT 15 GM TUBE ONE (13:15)
[2017-09-09] MEDS ORDERED: BUPIVACAINE HCL PF 0.5% 30 ML VIAL ONE (13:18)
[2017-09-09] MEDS ORDERED: NEOMYCIN/POLYMYXIN 1 ML G.U. IRRIGANT ONE (13:29)
[2017-09-09] MEDS ORDERED: ACETAMINOPHEN 1000 MG/100 ML 100 ML IV ONE (13:32)
[2017-09-09] MEDS ORDERED: LIDOCAINE HCL 2% PF 10 ML VIAL ONE (15:03)
[2017-09-09] MEDS ORDERED: MIDAZOLAM HCL 2 MG/2 ML VIAL ONE (17:55)
[2017-09-09] MEDS ORDERED: ONDANSETRON HCL 4 MG/2 ML VIAL ONE (17:57)
[2017-09-09] MEDS ORDERED: *morphine SULFATE 4 MG/ML PERIprocedure ONLY ONE (18:03)
--- NOTE | 2017-09-09 18:15 | RADRPT ---
EXAM DATE: 09/09/2017 6:07 PM EDT AGE/SEX: 36 years / Female INDICATIONS: Open rigid internal fixation of left wrist fracture CLINICAL DATA: This is the patient's initial encounter. Patient reports that signs and symptoms have been present for 1 day and indicates a pain score of Nonresponsive. MEDICAL/SURGICAL HISTORY: None. None. COMPARISON: [facility] – [place], W[place]ST LEFT COMPLETE ([id number]), 09/07/2017. . FINDINGS: Multiple views of the wrist were obtained and demonstrate the patient is status post rigid internal f ixation with screw plate fixation device now noted transfixing distal radial fracture. Fracture fragm ents are near-anatomic alignment. The ulnar styloid fractures again noted. There is overlying soft ti ssue swelling. CONCLUSION: Status post open reduction internal fixation. Electronically signed by: Christopher Hilliard MD 09/09/2017 6:14 PM EDT
[2017-09-09] MEDS ORDERED: MEPERIDINE HCL 25 MG/ML VIAL ONE (18:17)
[2017-09-09] MEDS ORDERED: DO NOT ADM ANY ANTICOAGULANT DRUGS PRN (18:30)
--- NOTE | 2017-09-09 18:45 | HHI.PR ---
Subjective Remarks Patient is going to surgery when I came to see her she is in severe pain no fever or chills Objective Vitals Vital Signs Date Time Temp Pulse Resp B/P (MAP) Pulse Ox O2 Delivery O2 Flow Rate FiO2 09/09/17 18:30 72 20 123/76 (92) 97 Nasal Cannula 2 09/09/17 18:15 68 20 128/73 (91) 97 Nasal Cannula 2 09/09/17 18:00 82 20 153/88 (109) 97 Nasal Cannula 2 09/09/17 17:47 97.6 80 20 134/81 (98) 97 Nasal Cannula 2 09/09/17 09:46 16 09/09/17 08:36 16 09/09/17 08:00 98.7 83 17 110/72 (85) 98 09/09/17 04:00 97.3 79 18 120/72 (88) 97 09/09/17 00:00 98.9 57 18 115/74 (88) 95 09/08/17 20:00 98.2 66 18 122/73 (89) 98 I/O 09/08/17 09/08/17 09/08/17 09/09/17 09/09/17 09/09/17 07:00 15:00 23:00 07:00 15:00 23:00 Intake Total 1000 ml 1800 ml Output Total 25 ml Balance 1000 ml 1775 ml Intake IV Total 1000 ml 1800 ml Output Estimated Blood Loss 25 ml # Voids 1 4 Result Diagram: 09/08/17 0407 09/08/17 0407 Objective Remarks GENERAL: This is a well-nourished, well-developed patient, in no apparent distress. CARDIOVASCULAR: RRR, no gallops, or rubs. RESPIRATORY: Fair air entry bilaterally. No W, R, or R GASTROINTESTINAL: Abdomen soft, non-tender, nondistended. Positive bowel sounds MUSCULOSKELETAL: Extremities without clubbing, cyanosis, or edema. Pedal pulses appreciated, left upper extremity in sling NEUROLOGICAL: Awake and alert. Moves all extremity. Normal speech.no focal neurological deficit A/P Assessment and Plan Assessment/plan: 1. Hand/wrist fracture Wrist x-ray significant for comminuted distal radial fracture and ulnar fracture. Comminuted fracture of the scaphoid. Orthopedic surgery consulted, appreciate assistance, patient going for surgery now 09/09 N.p.o. Dilaudid for pain FEN N.p.o. NS at 100 cc/hour Electrolytes: Monitor and replete as needed Cale Byrne MD Sep 09, 2017 18:45
--- NOTE | 2017-09-09 18:47 | PD.OP ---
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
[2017-09-09] MEDS: ONDANSETRON ODT 4 MG TAB PO PRN (19:01)
[2017-09-09 20:00] VITALS: BP 116/72; PULSE 68; RESP 18; TEMP 97.4; O2SAT 96
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
[2017-09-09 23:44] VITALS: O2SAT 96
[2017-09-10] VITALS: BP 119/68; PULSE 76; RESP 18; TEMP 99.6; O2SAT 98
[2017-09-10] MEDS: HYDROmorphone HCL PF 2 MG/ML VIAL IV PUSH PRN ×8 (00:21→22:55)
[2017-09-10] MEDS: SODIUM CHLOR 0.9% 1000 ML INJ 1,000 ML IV SCH ×3 (03:00→23:00)
[2017-09-10 04:00] VITALS: BP 115/67; PULSE 69; RESP 18; TEMP 98.5; O2SAT 98
[2017-09-10] MEDS: oxyCODONE/ACETAMINOPHEN 10 MG/325 MG TAB PO PRN ×6 (04:25→23:04)
[2017-09-10 07:51] VITALS: BP 111/74; PULSE 72; RESP 14; TEMP 98.3; O2SAT 100
[2017-09-10] MEDS: SODIUM CHLORIDE 0.9% FLUSH 10 ML FLUSH IV FLUSH SCH ×2 (08:26→20:10)
[2017-09-10] MEDS: ONDANSETRON ODT 4 MG TAB PO PRN (08:27)
[2017-09-10 11:50] VITALS: BP 108/52; PULSE 82; RESP 16; TEMP 98.4; O2SAT 99
--- NOTE | 2017-09-10 12:39 | HHI.PR ---
Subjective Remarks Patient reported her pain is about 8 out of 10 she had surgery yesterday, will continue pain management awaiting Ortho further recommendation Objective Vitals Vital Signs Date Time Temp Pulse Resp B/P (MAP) Pulse Ox O2 Delivery O2 Flow Rate FiO2 09/10/17 11:50 98.4 82 16 108/52 (70) 99 09/10/17 07:51 98.3 72 14 111/74 (86) 100 09/10/17 04:00 98.5 69 18 115/67 (83) 98 09/10/17 00:00 99.6 76 18 119/68 (85) 98 09/09/17 23:44 96 Nasal Cannula 2.00 09/09/17 20:00 97.4 68 18 116/72 (87) 96 09/09/17 18:40 97.6 72 20 123/76 (92) 97 Nasal Cannula 2 09/09/17 18:30 72 20 123/76 (92) 97 Nasal Cannula 2 09/09/17 18:15 68 20 128/73 (91) 97 Nasal Cannula 2 09/09/17 18:00 82 20 153/88 (109) 97 Nasal Cannula 2 09/09/17 17:47 97.6 80 20 134/81 (98) 97 Nasal Cannula 2 I/O 09/09/17 09/09/17 09/09/17 09/10/17 09/10/17 09/10/17 06:59 14:59 22:59 06:59 14:59 22:59 Intake Total 1800 ml Output Total 25 ml Balance 1775 ml Intake IV Total 1800 ml Output Estimated Blood Loss 25 ml # Voids 4 2 Result Diagram: 09/08/177 09/08/17 0407 Objective Remarks GENERAL: This is a well-nourished, well-developed patient, in no apparent distress. CARDIOVASCULAR: RRR, no gallops, or rubs. RESPIRATORY: Fair air entry bilaterally. No W, R, or R GASTROINTESTINAL: Abdomen soft, non-tender, nondistended. Positive bowel sounds MUSCULOSKELETAL: Extremities without clubbing, cyanosis, or edema. Pedal pulses appreciated, left upper extremity in sling hung against gravity NEUROLOGICAL: Awake and alert. Moves all extremity. Normal speech.no focal neurological deficit A/P Assessment and Plan Assessment/plan: 1. Hand/wrist fracture Wrist x-ray significant for comminuted distal radial fracture and ulnar fracture. Comminuted fracture of the scaphoid. Orthopedic surgery consulted, appreciate assistance, s/p open reduction and internal fixation distal radius with volar plate and screws left wrist open left carpal tunnel release Operation and Findings: comminuted displaced intraarticular fracture with more than three fragments distal radius left wrist tight carpal tunnel scaphoid waist fracture with nonunion left wrist Continue pain management Cale Byrne MD Sep 10, 2017 12:39
[2017-09-10 15:56] VITALS: BP 137/84; PULSE 75; RESP 16; TEMP 98.2; O2SAT 98
[2017-09-10 20:00] VITALS: BP 122/65; PULSE 77; RESP 18; TEMP 98.7; O2SAT 99
[2017-09-11] VITALS (7 sets, daily range): BP systolic 112–139; BP diastolic 63–89; PULSE 60–99; RESP 18–19; TEMP 98.4–100.9; O2SAT 95–99
[2017-09-11] MEDS: oxyCODONE/ACETAMINOPHEN 10 MG/325 MG TAB PO PRN ×6 (00:52→23:40)
[2017-09-11] MEDS: HYDROmorphone HCL PF 2 MG/ML VIAL IV PUSH PRN ×4 (02:15→11:10)
[2017-09-11] MEDS: MAGNESIUM HYDROXIDE SUSP 30 ML CUP PO PRN (08:16)
[2017-09-11] MEDS: SODIUM CHLORIDE 0.9% FLUSH 10 ML FLUSH IV FLUSH SCH ×2 (09:00→21:00)
[2017-09-11] MEDS: SODIUM CHLOR 0.9% 1000 ML INJ 1,000 ML IV SCH ×2 (09:00→19:00)
--- NOTE | 2017-09-11 12:55 | HHI.PR ---
Subjective Remarks Patient reported still having pain 9 out of 10 despite having Dilaudid 1 mg every 3 hours and Percocet I discussed with the nurse, earlier orthopedic called and said he will assess the patient today for further recommendation Still in sling no fever or chills Objective Vitals Vital Signs Date Time Temp Pulse Resp B/P (MAP) Pulse Ox O2 Delivery O2 Flow Rate FiO2 09/11/17 12:00 60 18 116/64 (81) 99 09/11/17 08:00 99.0 72 18 126/69 (88) 97 09/11/17 04:00 99.6 81 19 112/71 (85) 97 09/11/17 00:00 99.0 91 18 125/75 (92) 99 09/10/17 20:00 98.7 77 18 122/65 (84) 99 09/10/17 15:56 98.2 75 16 137/84 (101) 98 I/O 09/10/17 09/10/17 09/10/17 09/11/17 09/11/17 09/11/17 07:00 15:00 23:00 07:00 15:00 23:00 Intake Total 1000 ml Balance 1000 ml Intake IV Total 1000 ml # Voids 2 Result Diagram: 09/08/1740609/08/17406 Objective Remarks GENERAL: This is a well-nourished, well-developed patient, in no apparent distress. CARDIOVASCULAR: RRR, no gallops, or rubs. RESPIRATORY: Fair air entry bilaterally. No W, R, or R GASTROINTESTINAL: Abdomen soft, non-tender, nondistended. Positive bowel sounds MUSCULOSKELETAL: Extremities without clubbing, cyanosis, or edema. Pedal pulses appreciated, left upper extremity in sling hung against gravity NEUROLOGICAL: Awake and alert. Moves all extremity. Normal speech.no focal neurological deficit A/P Assessment and Plan Assessment/plan: 1. Hand/wrist fracture Wrist x-ray significant for comminuted distal radial fracture and ulnar fracture. Comminuted fracture of the scaphoid. 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
[2017-09-11] MEDS: ONDANSETRON ODT 4 MG TAB PO PRN (13:13)
[2017-09-11] MEDS: HYDROmorphone HCL PF 0.5 MG/0.5 ML SYRINGE IV PUSH PRN ×2 (15:33→23:04)
[2017-09-11] MEDS ORDERED: IBUPROFEN 600 MG TAB PO ONE (20:15)
[2017-09-12] VITALS (7 sets, daily range): BP systolic 103–125; BP diastolic 52–80; PULSE 71–86; RESP 18–20; TEMP 98.3–99.2; O2SAT 97–100
[2017-09-12] MEDS: SODIUM CHLOR 0.9% 1000 ML INJ 1,000 ML IV SCH ×2 (05:00→14:52)
[2017-09-12] MEDS: oxyCODONE/ACETAMINOPHEN 10 MG/325 MG TAB PO PRN ×5 (05:02→22:07)
[2017-09-12] MEDS: SODIUM CHLORIDE 0.9% FLUSH 10 ML FLUSH IV FLUSH SCH ×2 (08:36→21:00)
[2017-09-12] MEDS: MAGNESIUM HYDROXIDE SUSP 30 ML CUP PO PRN (10:49)
--- NOTE | 2017-09-12 10:55 | HHI.PR ---
Subjective Remarks There was a report of a fever 100.9 last night at 8 PM Patient is complaining of the cast that feel uncomfortable and having a bad smell Will repeat CBC and I discussed with Dr. Lay hand surgeon he graciously stated he will see the patient later this afternoon Objective Vitals Vital Signs Date Time Temp Pulse Resp B/P (MAP) Pulse Ox O2 Delivery O2 Flow Rate FiO2 09/12/17 08:06 98.6 71 20 105/63 (77) 98 09/12/17 04:00 98.9 71 20 108/52 (70) 97 09/12/17 00:00 98.9 80 18 125/65 (85) 97 09/11/17 22:00 99.2 09/11/17 20:30 100.9 99 18 118/63 (81) 95 09/11/17 16:00 2.00 09/11/17 16:00 99.8 75 18 113/67 (82) 98 09/11/17 12:00 60 18 116/64 (81) 99 Result Diagram: 09/08/1740609/08/17406 Objective Remarks GENERAL: This is a well-nourished, well-developed patient, in no apparent distress. CARDIOVASCULAR: RRR, no gallops, or rubs. RESPIRATORY: Fair air entry bilaterally. No W, R, or R GASTROINTESTINAL: Abdomen soft, non-tender, nondistended. Positive bowel sounds MUSCULOSKELETAL: Extremities without clubbing, cyanosis, or edema. Pedal pulses appreciated, left upper extremity in sling hung against gravity NEUROLOGICAL: Awake and alert. Moves all extremity. Normal speech.no focal neurological deficit A/P Assessment and Plan Assessment/plan: 1. Hand/wrist fracture Wrist x-ray significant for comminuted distal radial fracture and ulnar fracture. Comminuted fracture of the scaphoid. 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 Timmons hand surgeon he graciously stated he will see the patient later this afternoon Check blood culture, UA, she does not have cough and saturation and lung physical exam within normal Cale Byrne MD Sep 12, 2017 10:55
[2017-09-12 13:39] LABS: AUTOMATED NEUTROPHIL # 5.3 TH/MM3 (1.8-7.7); BASOPHIL % 0.5 % (0.0-2.0); EOSINOPHIL # 0.2 TH/MM3 (0-0.4); EOSINOPHIL % 2.3 % (0.0-4.0); HEMATOCRIT 33.8 % (35.0-46.0); HEMOGLOBIN 11.1 GM/DL (11.6-15.3); LYMPH % 16.5 % (9.0-44.0); LYMPHOCYTE # 1.2 TH/MM3 (1.0-4.8); MEAN CELL VOLUME 79.8 FL (80.0-100.0); MEAN CORPUSCULAR HEMOGLOBIN 26.3 PG (27.0-34.0); MEAN CORPUSCULAR HGB CONC 32.9 % (32.0-36.0); MEAN PLATELET VOLUME 7.7 FL (7.0-11.0); MONO % 6.3 % (0.0-8.0); MONOCYTE # 0.4 TH/MM3 (0-0.9); NEUT % 74.4 % (16.0-70.0); PLATELET COUNT 506 TH/MM3 (150-450); RED BLOOD COUNT 4.23 MIL/MM3 (4.00-5.30); RED CELL DISTRIBUTION WIDTH 16.3 % (11.6-17.2); WHITE BLOOD COUNT 7.1 TH/MM3 (4.0-11.0)
[2017-09-12 14:10] LABS: BICARBONATE 24.7 MEQ/L (21.0-32.0); CREATININE 0.5 MG/DL (0.50-1.00)
[2017-09-12] MEDS ORDERED: POTASSIUM CHLORIDE 20 MEQ CONTROLLED RELEASE TAB PO ONE (14:30)
[2017-09-13 00:37] VITALS: BP 104/60; PULSE 79; RESP 18; TEMP 98.8; O2SAT 100
[2017-09-13] MEDS: oxyCODONE/ACETAMINOPHEN 10 MG/325 MG TAB PO PRN ×2 (04:06→08:02)
[2017-09-13 05:15] VITALS: BP 96/55; PULSE 87; RESP 18; TEMP 98.6; O2SAT 98
[2017-09-13 06:28] LABS: AUTOMATED NEUTROPHIL # 2.7 TH/MM3 (1.8-7.7); EOSINOPHIL # 0.2 TH/MM3 (0-0.4); EOSINOPHIL % 4.3 % (0.0-4.0); HEMATOCRIT 28.7 % (35.0-46.0); HEMOGLOBIN 9.8 GM/DL (11.6-15.3); LYMPH % 28.9 % (9.0-44.0); LYMPHOCYTE # 1.4 TH/MM3 (1.0-4.8); MEAN CELL VOLUME 78.5 FL (80.0-100.0); MEAN CORPUSCULAR HEMOGLOBIN 26.9 PG (27.0-34.0); MEAN CORPUSCULAR HGB CONC 34.2 % (32.0-36.0); MEAN PLATELET VOLUME 7.5 FL (7.0-11.0); MONO % 10.1 % (0.0-8.0); MONOCYTE # 0.5 TH/MM3 (0-0.9); NEUT % 55.7 % (16.0-70.0); PLATELET COUNT 397 TH/MM3 (150-450); RED BLOOD COUNT 3.66 MIL/MM3 (4.00-5.30); RED CELL DISTRIBUTION WIDTH 16.2 % (11.6-17.2); WHITE BLOOD COUNT 4.9 TH/MM3 (4.0-11.0)
[2017-09-13 07:08] LABS: BICARBONATE 24.8 MEQ/L (21.0-32.0); CALCIUM 8.8 MG/DL (8.5-10.1); CREATININE 0.48 MG/DL (0.50-1.00)
[2017-09-13] MEDS: SODIUM CHLORIDE 0.9% FLUSH 10 ML FLUSH IV FLUSH SCH (08:01)
[2017-09-13 08:23] VITALS: BP 105/64; PULSE 79; RESP 20; TEMP 98.2; O2SAT 99
[2017-09-13 10:17] VITALS: O2SAT 99
[2017-09-13] MEDS: SODIUM CHLOR 0.9% 1000 ML INJ 1,000 ML IV SCH (11:00)
[2017-09-13] MEDS ORDERED: PERC7.5T13 PO (11:39)
--- NOTE | 2017-09-13 12:59 | HHI.DS ---
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 The patient reports she was rollerskating when she fell backwards onto her outstretched left arm. She reports that her wrist was at a strange angle and she "put it back into place" to prevent her son from seeing it. When she did this she heard and felt a pop. She has no other complaints at this time. Denies sustaining any other injuries during the fall. No loss of consciousness or head trauma. CBC/BMP: 09/13/17 0555 09/13/17 0555 Significant Findings Laboratory Tests Test 09/12/17 12:45 09/13/17 05:55 Hemoglobin 11.1 GM/DL (11.6-15.3) 9.8 GM/DL (11.6-15.3) Hematocrit 33.8 % (35.0-46.0) 28.7 % (35.0-46.0) Mean Corpuscular Volume 79.8 FL (80.0-100.0) 78.5 FL (80.0-100.0) Mean Corpuscular Hemoglobin 26.3 PG (27.0-34.0) 26.9 PG (27.0-34.0) Platelet Count 506 TH/MM3 (150-450) Neutrophils (%) (Auto) 74.4 % (16.0-70.0) Blood Urea Nitrogen 6 MG/DL (7-18) Potassium Level 3.3 MEQ/L (3.5-5.1) Red Blood Count 3.66 MIL/MM3 (4.00-5.30) Monocytes (%) (Auto) 10.1 % (0.0-8.0) Eosinophils (%) (Auto) 4.3 % (0.0-4.0) Creatinine 0.48 MG/DL (0.50-1.00) PE at Discharge GENERAL: This is a well-nourished, well-developed patient, in no apparent distress. CARDIOVASCULAR: RRR, no gallops, or rubs. RESPIRATORY: Fair air entry bilaterally. No W, R, or R GASTROINTESTINAL: Abdomen soft, non-tender, nondistended. Positive bowel sounds MUSCULOSKELETAL: Extremities without clubbing, cyanosis, or edema. Pedal pulses appreciated, left upper extremity in sling hung against gravity NEUROLOGICAL: Awake and alert. Moves all extremity. Normal speech.no focal neurological deficit Hospital Course 36 years old female admitted with hand and wrist fracture Wrist x-ray significant for comminuted distal radial fracture and ulnar fracture. Comminuted fracture of the scaphoid. 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 Timmons as an outpatient Pt Condition on Discharge: Fair Discharge Disposition: Discharge Home Discharge Time: <= 30 minutes Discharge Instructions DIET: Follow Instructions for: Heart Healthy Diet Activities you can perform: Weight Bearing as Magy, See Additionl Instruction Other Activity Instructions: per rosalba surgeon recs Follow up Referrals: Hand Surgery - 1 Week with Kurt Moon MD PCP Follow-up - 1 Week New Medications: Oxycodone-Acetaminophen (Percocet) 7.5-325 mg Tab 1 TAB PO Q4H PRN for PAIN, #15 TAB 0 Refills Cale Byrne MD Sep 13, 2017 12:59
[2017-09-14] MEDS ORDERED: BACT800T5 PO (15:42)
== END 2017-09-13 12:44 | disposition home or self-care (01) | DRG 512 ==
LOC: NEPD 19:55 → NEDA 22:51 → NEDH 09-08 02:51 → N05B 09-08 18:35
PROVIDERS: ADMIT Hospitalist; ATTEND Hospitalist
PROC: 01N50ZZ Release Median Nerve, Open Approach (ICD-10-PCS; 2017-09-09)
PROC: 0PSJ04Z Reposition Left Radius with Internal Fixation Device, Open Approach (ICD-10-PCS; principal; 2017-09-09 13:56)
DX: S52.572A Other intraarticular fracture of lower end of left radius, initial encounter for closed fracture (principal); S52.613A Displaced fracture of unspecified ulna styloid process, initial encounter for closed fracture; S62.022A Displaced fracture of middle third of navicular [scaphoid] bone of left wrist, initial encounter for closed fracture; G56.02 Carpal tunnel syndrome, left upper limb; R50.9 Fever, unspecified; V00.121A Fall from non-in-line roller-skates, initial encounter; Y93.51 Activity, roller skating (inline) and skateboarding
CPT/HCPCS: 29125; 73110; 73200; 76000; 80048; 80053; 85025; 85610; 85730; 87040; 96361; 96374; 96375; C1713; J0131; J1170; J2175; J2250; J2270; J2405; J2550; J3010; J7030; J7120

== ENCOUNTER 2017-09-14 13:43 | Observation (INO) | payer MEDICAID ==
[~2017-09-14] VITALS: Ht 160 cm; Wt 75.0 kg
[~2017-09-14 13:43] MED LIST changes: -BACT800T5 PO; +DEXAMETHASONE SOD PHOS 4 MG/ML VIAL IV ONE; +LIDOCAINE HCL 1% PF 5 ML SYRINGE OTHER ONE; +ONDANSETRON HCL 4 MG/2 ML VIAL IV ONE; +PERC7.5T13 PO; +PROPOFOL 200 MG/20 ML AMP IV ONE
[2017-09-14 14:13] VITALS: BP 112/70; PULSE 84; RESP 18; TEMP 98.5; O2SAT 98
--- NOTE | 2017-09-14 15:26 | PD ---
HPI Chief Complaint: Injury Time Seen by Provider: 15:25 Travel History International Travel<30 days: No Contact w/Intl Traveler<30days: No Traveled to known affect area: No History of Present Illness HPI 36-year-old female came to the emergency room sent by the hand surgeon who had operated on her earlier this week for ORIF for a wrist fracture. Patient had gone to see the surgeon postop today and the surgeon noticed that the wound was still draining. He told the patient that she needs to be taken to the OR and the wound needs to be reopened and examined. Hence patient is in the emergency room. She has pain in the wrist. Vital signs otherwise look stable. No history of fever or chills. Patient is not diabetic. [facility] Past Medical History Narrative Medical List of her past medical, surgical, social and family history is reviewed from the nursing note Blood Disorders: No Cancer: No Cardiovascular Problems: No Diminished Hearing: No Endocrine: No Genitourinary: No Immune Disorder: No Musculoskeletal: No Neurologic: No Psychiatric: No Reproductive: No Respiratory: No Immunizations Current: Yes ?: Not : 3 Para: 2 Miscarriage: 1 Ectopic : Yes (06/06/17 SX (denies)) Past Surgical History Abdominal Surgery: Yes (LAPROSCOPIC FOR ECTOPIC ) Gynecologic Surgery: Yes (Laparoscopic due to ectopic .) Other Surgery: No Social History Alcohol Use: No Tobacco Use: No Substance Use: No Allergies-Medications (Allergen,Severity, Reaction): Coded Allergies: No Known Allergies (Verified Allergy, Unknown, 09/14/17) Comments List of her allergies reviewed from the nursing note Reported Meds & Prescriptions Reported Meds & Active Scripts Active Percocet (Oxycodone-Acetaminophen) 7.5-325 mg Tab 1 Tab PO Q4H PRN Narrative Medication List of her home medications reviewed from the nursing note. Review of Systems Except as stated in HPI: all other systems reviewed are Neg Physical Exam Narrative GENERAL: Awake, alert, mild distress SKIN: Focused skin assessment warm/dry. Patient has a cast on her left forearm. Good cap refill to the fingers. HEAD: Atraumatic. Normocephalic. EYES: Pupils equal and round. No scleral icterus. No injection or drainage. ENT: No nasal bleeding or discharge. Mucous membranes pink and moist. NECK: Trachea midline. No JVD. CARDIOVASCULAR: Regular rate and rhythm. No murmur appreciated. RESPIRATORY: No accessory muscle use. Clear to auscultation. Breath sounds equal bilaterally. GASTROINTESTINAL: Abdomen soft, non-tender, nondistended. Hepatic and splenic margins not palpable. MUSCULOSKELETAL: No obvious deformities. No clubbing. No cyanosis. No edema. NEUROLOGICAL: Awake and alert. No obvious cranial nerve deficits. Motor grossly within normal limits. Normal speech. PSYCHIATRIC: Appropriate mood and affect; insight and judgment normal. Data Data Last Documented VS Orders Orders Complete Blood Count With Diff (09/14/17 14:30) Comprehensive Metabolic Panel (09/14/17 14:30) Ed Urine Pregnancytest Poc (09/14/17 14:30) Prothrombin Time / Inr (Pt) (09/14/17 14:30) Type And Screen (09/14/17 14:30) Lidocaine Pf 2% Inj (Xylocaine-Mpf 2% In (09/14/17 15:29) Mupirocin 2% Oint (Bactroban 2% Oint) (09/14/17 15:29) Bupivacaine Pf 0.5% Inj (Marcaine Pf 0.5 (09/14/17 15:33) Ketorolac Inj (Toradol Inj) (09/14/17 18:00) Neomycin-Polymyxin G.U. Irr (Neosporin G (09/14/17 15:48) Vancomycin Inj (Vancomycin Inj) (09/14/17 16:00) Admit Order (Ed Use Only) (09/14/17 16:39) Labs Laboratory Tests Test 09/14/17 15:34 White Blood Count 6.6 TH/MM3 Red Blood Count 4.16 MIL/MM3 Hemoglobin 11.1 GM/DL Hematocrit 33.3 % Mean Corpuscular Volume 80.0 FL Mean Corpuscular Hemoglobin 26.6 PG Mean Corpuscular Hemoglobin Concent 33.3 % Red Cell Distribution Width 16.5 % Platelet Count 490 TH/MM3 Mean Platelet Volume 7.3 FL Neutrophils (%) (Auto) 58.8 % Lymphocytes (%) (Auto) 32.7 % Monocytes (%) (Auto) 5.9 % Eosinophils (%) (Auto) 2.1 % Basophils (%) (Auto) 0.5 % Neutrophils # (Auto) 3.9 TH/MM3 Lymphocytes # (Auto) 2.2 TH/MM3 Monocytes # (Auto) 0.4 TH/MM3 Eosinophils # (Auto) 0.1 TH/MM3 Basophils # (Auto) 0.0 TH/MM3 CBC Comment DIFF FINAL Differential Comment Prothrombin Time 10.2 SEC Prothromb Time International Ratio 1.0 RATIO Blood Urea Nitrogen 10 MG/DL Creatinine 0.64 MG/DL Random Glucose 88 MG/DL Total Protein 8.5 GM/DL Albumin 4.0 GM/DL Calcium Level 9.5 MG/DL Alkaline Phosphatase 61 U/L Aspartate Amino Transf (AST/SGOT) 27 U/L Alanine Aminotransferase (ALT/SGPT) 26 U/L Total Bilirubin 0.4 MG/DL Sodium Level 136 MEQ/L Potassium Level 4.1 MEQ/L Chloride Level 99 MEQ/L Carbon Dioxide Level 26.2 MEQ/L Anion Gap 11 MEQ/L Estimat Glomerular Filtration Rate 104 ML/MIN MDM Medical Decision Making Medical Screen Exam Complete: Yes Emergency Medical Condition: Yes Medical Record Reviewed: Yes Differential Diagnosis Postop infection Narrative Course 3:56 PM awaiting for blood test result. The surgeon Dr. Olmedo is here and he wants the patient admitted under medical service. Patient will be getting 1 g of IV vancomycin. He plans to take the patient to the OR shortly. He wants ID to be consulted. This will be mentioned to the admitting team. Awaiting for the admitting physician to call back. Procedures EKG Prior to Arrival: No Physician Communication Physician Communication Dr. Rodrigues Diagnosis Primary Impression: Postoperative infection Qualified Codes: T81.4XXA - Infection following a procedure, initial encounter Admitting Information Admitting Physician Requests: Admit Scripts Levofloxacin (Levaquin) 750 Mg Tablet 750 MG PO DAILY for Infection for 30 Days, #30 TAB 0 Refills Prov: Elly Arechiga MD 09/18/17 Epinephrine Inj (Epinephrine Inj) 1 Mg/Ml (1 Ml) Inj 0.3 MG SQ ONCE Y for ALLERGIC REACTION, #1 VIAL Give with any signs of respiratory distress. Prov: Elly Arechiga MD 09/18/17 Epinephrine Inj (Epinephrine Inj) 1 Mg/Ml (1 Ml) Inj 0.3 MG IV PUSH ONCE Y for ALLERGIC REACTION, #1 VIAL Prov: Elly Arechiga MD 09/18/17 Hydrocortisone Inj (Solu-Cortef Inj) 250 Mg/2 Ml Inj 250 MG IV PUSH ONCE Y for ALLERGIC REACTION, #1 VIAL 0 Refills Give over 30-60 seconds. Prov: Elly Arechiga MD 09/18/17 Vancomycin Inj (Vancomycin Inj) 10 Gram Inj 1500 MG IV BID for Infection for 30 Days, VIAL Prov: Elly Arechiga MD 09/18/17 Ivan Purvis MD Sep 14, 2017 15:25
[2017-09-14] MEDS ORDERED: MUPIROCIN 2% OINT 22 GM TUBE ONE (15:29)
[2017-09-14] MEDS ORDERED: LIDOCAINE HCL 2% PF 10 ML VIAL ONE (15:29)
[2017-09-14] MEDS ORDERED: BUPIVACAINE HCL PF 0.5% 30 ML VIAL ONE (15:33)
[2017-09-14] MEDS ORDERED: BACT800T5 PO (15:42)
[2017-09-14] MEDS ORDERED: NEOMYCIN/POLYMYXIN 1 ML G.U. IRRIGANT ONE (15:48)
[2017-09-14] MEDS ORDERED: VANCOMYCIN INJ 1,000 MG in SODIUM CHLOR 0.9% 250 ML INJ 250 ML IV ONE (16:00)
[2017-09-14 16:05] LABS: AUTOMATED NEUTROPHIL # 3.9 TH/MM3 (1.8-7.7); BASOPHIL % 0.5 % (0.0-2.0); EOSINOPHIL # 0.1 TH/MM3 (0-0.4); EOSINOPHIL % 2.1 % (0.0-4.0); HEMATOCRIT 33.3 % (35.0-46.0); HEMOGLOBIN 11.1 GM/DL (11.6-15.3); LYMPH % 32.7 % (9.0-44.0); LYMPHOCYTE # 2.2 TH/MM3 (1.0-4.8); MEAN CORPUSCULAR HEMOGLOBIN 26.6 PG (27.0-34.0); MEAN CORPUSCULAR HGB CONC 33.3 % (32.0-36.0); MEAN PLATELET VOLUME 7.3 FL (7.0-11.0); MONO % 5.9 % (0.0-8.0); MONOCYTE # 0.4 TH/MM3 (0-0.9); NEUT % 58.8 % (16.0-70.0); PLATELET COUNT 490 TH/MM3 (150-450); RED BLOOD COUNT 4.16 MIL/MM3 (4.00-5.30); RED CELL DISTRIBUTION WIDTH 16.5 % (11.6-17.2); WHITE BLOOD COUNT 6.6 TH/MM3 (4.0-11.0)
[2017-09-14 16:12] LABS: PROTHROMBIN TIME - PATIENT 10.2 SEC (9.8-11.6)
[2017-09-14 16:40] LABS: AST (GOT) 27 U/L (15-37); BICARBONATE 26.2 MEQ/L (21.0-32.0); BLOOD UREA NITROGEN 10 MG/DL (7-18); CALCIUM 9.5 MG/DL (8.5-10.1); CHLORIDE 99 MEQ/L (98-107); CREATININE 0.64 MG/DL (0.50-1.00); GLOMERULAR FILTRATION RATE 104 ML/MIN (>89); GLUCOSE,RANDOM 88 MG/DL (74-106); SODIUM (NA) 136 MEQ/L (136-145)
[2017-09-14 16:45] LABS: ALKALINE PHOSPHATASE 61 U/L (45-117); ALT (GPT) 26 U/L (10-53); TOTAL BILIRUBIN ADULT 0.4 MG/DL (0.2-1.0); TOTAL PROTEIN 8.5 GM/DL (6.4-8.2)
[2017-09-14] MEDS ORDERED: VANCOMYCIN HCL 1000 MG VIAL ONE ×2 (16:46→17:27)
[2017-09-14] MEDS ORDERED: KETOROLAC TROMETHAMINE 30 MG/ML (IVP) VIAL IV PUSH ONE (18:00)
--- NOTE | 2017-09-14 18:27 | PD.OP ---
Operative Report Preoperative Diagnosis: (1) Postoperative infection (2) communitted displaced intraarticular fracture distal radius left wrist Postoperative Diagnosis: (1) Postoperative infection (2) communitted displaced intraarticular fracture distal radius left wrist Procedure: exploration, wash and wound vac application left distal forearm Anesthesia: general Surgeon: Kurt Moon Extruding Machine Operator(s): kwabena Operation and Findings: deep surgical site infection with involvement of flexor tendons left forearm/ wrist Kurt Moon MD Sep 14, 2017 18:27
[2017-09-14] MEDS ORDERED: ACETAMINOPHEN 1000 MG/100 ML 100 ML IV ONE (18:28)
[2017-09-14] MEDS ORDERED: DO NOT ADM ANY ANTICOAGULANT DRUGS PRN (18:32)
[2017-09-14] MEDS ORDERED: MORPHINE SULFATE 4 MG/ML INJ ONE (18:43)
[2017-09-14] MEDS ORDERED: *MEPERIDINE 25 MG INJ VIAL PERIprocedural Use ONLY ONE (18:46)
[2017-09-14] MEDS ORDERED: *morphine SULFATE 8 MG/ML PERIprocedure ONLY ONE (18:47)
--- NOTE | 2017-09-14 19:03 | MP ---
cc: Kurt Moon MD DATE OF OPERATION: 09/14/2017 PREOPERATIVE DIAGNOSIS: Surgical site infection, status post open reduction, internal fixation, distal radius fracture, left wrist. POSTOPERATIVE DIAGNOSIS: Surgical site infection, deep, status post open reduction, internal fixation, distal radius fracture, left wrist. PROCEDURE PERFORMED: Exploration, wash, vancomycin antibiotic bead insertion and wound VAC application, left distal forearm/wrist. SURGEON: Kurt Moon MD ANESTHESIA: General. ESTIMATED BLOOD LOSS: About 20 mL TOURNIQUET TIME: No tourniquet was used. Implants: osteoset bone graft pellet (calcium sulfate mixed with vancomycin) SPECIMENS: Sent for culture and sensitivity. DISPOSITION: PACU, stable. INDICATIONS FOR PROCEDURE: The patient is a 36-year-old female with history of left distal radius fracture. The patient underwent open reduction, internal fixation 5 days ago with volar plate and screws and open left carpal tunnel release. Presented to the office for postoperative visit and was found to have discharge from the surgical site. The patient was admitted to the hospital and was brought in for emergency exploration, wash, wound VAC application, left distal forearm and wrist. The patient was explained the risks and benefits of the procedure. She was consented for the same. DESCRIPTION OF PROCEDURE: The patient was brought to the operating room. Under general anesthesia, the left upper extremity was sterilely prepped and draped. The previously placed sutures over the distal forearm were removed. Sutures over the carpal tunnel region were also removed. On further exploration, there was evidence of infected purulent material within the region. On further exploration, there appeared to be involvement of the deeper space, closer to the implant. No evidence of pey[place] purulence noted from the deeper aspect, but the surrounding tissues were inflamed and were easily dissected from surrounding soft tissues. Material was obtained for culture and sensitivity. Exploration of the carpal tunnel region showed involvement of the flexor tendons with hypertrophied inflamed tenosynovium. Debridement of the tenosynovium was carried out through the carpal tunnel region. Using a curette, the wound was thoroughly curetted of the inflammatory tissue. Thorough wash of the wound was carried out using normal saline with hydrogen peroxide initially. This was then followed by normal saline mixed with irrigant. About 3 L of solution was used. Bleeding points were cauterized with bipolar cautery. Vancomycin was mixed with osteoset resorbable beads. About a gram of vancomycin was mixed and the antibiotic beads were placed over the implant and a few beads were placed within the carpal tunnel region. After ensuring hemostasis, wound VAC was applied. The carpal tunnel incision was closed loosely with 4 '0 nylon sutures with packing. A wound VAC was applied over the distal forearm region and was hooked up to the suction with 100 mmHg, low continuous. She had good distal circulation at the end of the procedure. A short-arm dorsal splint was applied. Finger joints were left free for range of motion exercises. She was recovered and taken to recovery room in stable condition. Our plan will be to bring the patient tomorrow again for exploration, wash, and wound VAC change. Kurt Moon MD SE/AMRTHA , 06:33 PM , 07:02 PM BRIAN
[2017-09-14] MEDS: PIPERACIL-TAZO 3.375 GM PREMIX 50 ML IV SCH (19:32)
[2017-09-14] MEDS ORDERED: SODIUM CHLORIDE 0.9% FLUSH 10 ML FLUSH IV FLUSH PRN (19:45)
[2017-09-14] MEDS ORDERED: NALOXONE HCL 0.4 MG/ML AMP IV PUSH PRN (19:45)
[2017-09-14] MEDS ORDERED: ACETAMINOPHEN 325 MG TAB PO PRN (19:45)
[2017-09-14 20:13] VITALS: BP 136/86; PULSE 60; RESP 17; TEMP 98.7; O2SAT 94
[2017-09-14] MEDS: SODIUM CHLORIDE 0.9% FLUSH 10 ML FLUSH IV FLUSH SCH (20:41)
[2017-09-14] MEDS: ACETAMINOPHEN/HYDROcodone 325 MG/10 MG TAB PO PRN (20:41)
--- NOTE | 2017-09-14 20:51 | HHI.HP ---
[facility] Service [facility] Primary Care Physician No Primary Care Physician Admission Diagnosis Postop infection Diagnoses: Chief Complaint: wrist infection Travel History International Travel<30 Days: No Contact w/Intl Traveler <30 Da: No Traveled to Known Affected Are: No History of Present Illness 36 y/o female with no medical history was sent to the ED for evaluation of her left wrist infection. She was seen out patient by Dr. Timmons and he requested her to come in so he can take her to the OR. She states her pain is a 6/10, intermittent throbbing that is relieved by pain medication. Denies any chest pain, sob, fever or chills. Review of Systems Except as stated in HPI: all other systems reviewed are Neg Past Family Social History Past Medical History No medical history Past Surgical History ORIF L wrist Reported Medications Reported Meds & Active Scripts Active Percocet (Oxycodone-Acetaminophen) 7.5-325 mg Tab 1 Tab PO Q4H PRN Reported Bactrim DS (Sulfamethoxazole-Trimethoprim) 800-160 Mg Tab 1 Tab PO BID 5 Days Allergies: Coded Allergies: No Known Allergies (Verified Allergy, Unknown, 09/14/17) Active Ordered Medications Current Medications Medications (Trade) Dose Ordered Sig/Spenser Route Start Time Stop Time Status Last Admin ([facility] ALL NURSING DEPARTME... UNSCH PRN .XX 09/14/17 18:32 09/15/17 18:31 Piperacillin Sod/ Tazobactam Sod 50 ml @ 100 mls/hr Q6H IV 09/14/17 20:00 09/14/17 19:32 ([place] 10-325 Mg) 1 tab Q6H PRN PO 09/14/17 19:15 (Morphine Inj) 4 mg Q3H PRN IV PUSH 09/14/17 19:15 Sodium Chloride 1,000 ml @ 100 mls/hr Q10H IV 09/14/17 19:31 (NS Flush) 2 ml UNSCH PRN IV FLUSH 09/14/17 19:45 (NS Flush) 2 ml BID IV FLUSH 6/6/18 21:00 (Tylenol) 650 mg Q4H PRN PO 09/14/17 19:45 (Narcan Inj) 0.4 mg UNSCH PRN IV PUSH 09/14/17 19:45 Family History Patient denies any family history Social History Patient denies any tobacco, alcohol or illicit drug use. Physical Exam Vital Signs Vital Signs Date Time Temp Pulse Resp B/P (MAP) Pulse Ox O2 Delivery O2 Flow Rate FiO2 09/14/17 19:30 98.0 63 16 138/74 (95) 100 09/14/17 19:15 99 16 128/73 (91) 99 09/14/17 19:00 60 16 136/83 (100) 99 09/14/17 18:45 67 16 140/85 (103) 99 09/14/17 18:30 98 16 115/66 (82) 98 09/14/17 18:29 98.0 99 16 124/64 (84) 90 09/14/17 14:13 98.5 84 18 112/70 (84) 98 Physical Exam GENERAL: This is a well-nourished, well-developed patient, in no apparent distress. SKIN: No rashes, ecchymoses or lesions. Cool and dry. HEAD: Atraumatic. Normocephalic. No temporal or scalp tenderness. EYES: Pupils equal round and reactive. Extraocular motions intact. CARDIOVASCULAR: Regular rate and rhythm without murmurs, gallops, or rubs. RESPIRATORY: Clear to auscultation. Breath sounds equal bilaterally. No wheezes , rales, or rhonchi. GASTROINTESTINAL: Abdomen soft, non-tender, nondistended. No hepato-splenomegaly , or palpable masses. No guarding. MUSCULOSKELETAL: Extremities without clubbing, cyanosis, or edema. left wrist tenderness. No calf tenderness. NEUROLOGICAL: Awake and alert. Normal speech. Laboratory Laboratory Tests Test 09/14/17 15:34 White Blood Count 6.6 Red Blood Count 4.16 Hemoglobin 11.1 Hematocrit 33.3 Mean Corpuscular Volume 80.0 Mean Corpuscular Hemoglobin 26.6 Mean Corpuscular Hemoglobin Concent 33.3 Red Cell Distribution Width 16.5 Platelet Count 490 Mean Platelet Volume 7.3 Neutrophils (%) (Auto) 58.8 Lymphocytes (%) (Auto) 32.7 Monocytes (%) (Auto) 5.9 Eosinophils (%) (Auto) 2.1 Basophils (%) (Auto) 0.5 Neutrophils # (Auto) 3.9 Lymphocytes # (Auto) 2.2 Monocytes # (Auto) 0.4 Eosinophils # (Auto) 0.1 Basophils # (Auto) 0.0 CBC Comment DIFF FINAL Differential Comment Prothrombin Time 10.2 Prothromb Time International Ratio 1.0 Blood Urea Nitrogen 10 Creatinine 0.64 Random Glucose 88 Total Protein 8.5 Albumin 4.0 Calcium Level 9.5 Alkaline Phosphatase 61 Aspartate Amino Transf (AST/SGOT) 27 Alanine Aminotransferase (ALT/SGPT) 26 Total Bilirubin 0.4 Sodium Level 136 Potassium Level 4.1 Chloride Level 99 Carbon Dioxide Level 26.2 Anion Gap 11 Estimat Glomerular Filtration Rate 104 Result Diagram: 09/14/17 1534 09/14/17 153 Caprinroya VTE Risk Assessment Caprinroya VTE Risk Assessment: No/Low Risk (score <= 1) Caprini Risk Assessment Model Point Value = 1 Point Value = 2 Point Value = 3 Point Value = 5 Age 41-60 Minor surgery BMI > 25 kg/m2 Swollen legs Varicose veins or History of unexplained or recurrent spontaneous Oral contraceptives or hormone replacement Sepsis (< 1 month) Serious lung disease, including pneumonia (< 1 month) Abnormal pulmonary function Acute myocardial infarction Congestive heart failure (< 1 month) History of inflammatory bowel disease Medical patient at bed rest Age 61-74 Arthroscopic surgery Major open surgery (> 45 min) Laparoscopic surgery (> 45 min) Malignancy Confined to bed (> 72 hours) Immobilizing plaster cast Central venous access Age >= 75 History of VTE Family history of VTE Factor V Leiden Prothrombin [id number] Lupus anticoagulant Anticardiolipin antibodies Elevated serum homocysteine Heparin-induced thrombocytopenia Other congenital or acquired thrombophilia Stroke (< 1 month) Elective arthroplasty Hip, pelvis, or leg fracture Acute spinal cord injury (< 1 month) Prophylaxis Regimen Total Risk Factor Score Risk Level Prophylaxis Regimen 0-1 Low Early ambulation 2 Moderate Order ONE of the following: *Sequential Compression Device (SCD) *Heparin 5000 units SQ BID 3-4 Higher Order ONE of the following medications: *Heparin 5000 units SQ TID *Enoxaparin/Lovenox 40 mg SQ daily (WT < 150 kg, CrCl > 30 mL/min) *Enoxaparin/Lovenox 30 mg SQ daily (WT < 150 kg, CrCl > 10-29 mL/min) *Enoxaparin/Lovenox 30 mg SQ BID (WT < 150 kg, CrCl > 30 mL/min) AND/OR *Sequential Compression Device (SCD) 5 or more Highest Order ONE of the following medications: *Heparin 5000 units SQ TID (Preferred with Epidurals) *Enoxaparin/Lovenox 40 mg SQ daily (WT < 150 kg, CrCl > 30 mL/min) *Enoxaparin/Lovenox 30 mg SQ daily (WT < 150 kg, CrCl > 10-29 mL/min) *Enoxaparin/Lovenox 30 mg SQ BID (WT < 150 kg, CrCl > 30 mL/min) AND *Sequential Compression Device (SCD) Assessment and Plan Assessment and Plan 36 y/o female with no medical history was sent to the ED for evaluation of her left wrist infection. Post op infection, s/p left wrist ORIF -Consult ID per Dr. Timmons -BERNADETTE Rodríguezsytal, patient has vancomycin beads placed in wound bed -IVF -NPO after midnight, DR Timmons plans to take patient back to OR tomorrow -Pain management with IV Morphine and PO norco DVT prophylaxis: SCDs Discussed Condition With Patient and RN Elisa Barger Sep 14, 2017 20:51
[2017-09-14] MEDS: MORPHINE SULFATE 4 MG/ML INJ IV PUSH PRN (22:47)
[2017-09-14 23:13] VITALS: BP 113/61; PULSE 62; RESP 17; TEMP 98; O2SAT 92
[2017-09-14] MEDS ORDERED: SODIUM CHLORID 0.9% 500 ML IV PRN (23:30)
[2017-09-14] MEDS ORDERED: POVIDONE IODINE 5% (ANTISEPSIS KIT) 4 APPLICATIONS EACH NARE PRN (23:30)
[2017-09-14] MEDS ORDERED: METOPROLOL TARTRATE 25 MG TAB PO PRN (23:30)
[2017-09-14] MEDS ORDERED: CHLORHEXIDINE GLUCONATE 2 % 1 PACK (2 CLOTHS) TOPICAL PRN (23:30)
[2017-09-15] MEDS: MORPHINE SULFATE 4 MG/ML INJ IV PUSH PRN ×4 (01:47→11:11)
[2017-09-15] MEDS: ACETAMINOPHEN/HYDROcodone 325 MG/10 MG TAB PO PRN ×4 (02:44→21:10)
[2017-09-15] MEDS: LACTATED RINGER'S 1000 ML IV PRN ×2 (02:45→15:13)
[2017-09-15] MEDS: PIPERACIL-TAZO 3.375 GM PREMIX 50 ML IV SCH ×4 (02:48→21:10)
[2017-09-15 03:31] VITALS: BP 107/65; PULSE 61; RESP 17; TEMP 97.2; O2SAT 96
[2017-09-15] MEDS ORDERED: HYDROmorphone HCL PF 2 MG/ML VIAL IV PUSH ONE ×2 (04:30→11:15)
[2017-09-15 05:56] LABS: AUTOMATED NEUTROPHIL # 4.2 TH/MM3 (1.8-7.7); BASOPHIL % 0.7 % (0.0-2.0); EOSINOPHIL % 0.5 % (0.0-4.0); HEMATOCRIT 28.8 % (35.0-46.0); HEMOGLOBIN 9.7 GM/DL (11.6-15.3); LYMPH % 20.8 % (9.0-44.0); LYMPHOCYTE # 1.2 TH/MM3 (1.0-4.8); MEAN CELL VOLUME 78.7 FL (80.0-100.0); MEAN CORPUSCULAR HEMOGLOBIN 26.4 PG (27.0-34.0); MEAN CORPUSCULAR HGB CONC 33.5 % (32.0-36.0); MEAN PLATELET VOLUME 7.4 FL (7.0-11.0); MONO % 6.8 % (0.0-8.0); MONOCYTE # 0.4 TH/MM3 (0-0.9); NEUT % 71.2 % (16.0-70.0); PLATELET COUNT 477 TH/MM3 (150-450); RED BLOOD COUNT 3.66 MIL/MM3 (4.00-5.30); RED CELL DISTRIBUTION WIDTH 16.4 % (11.6-17.2); WHITE BLOOD COUNT 5.9 TH/MM3 (4.0-11.0)
[2017-09-15 06:21] LABS: BICARBONATE 25.8 MEQ/L (21.0-32.0); CALCIUM 8.9 MG/DL (8.5-10.1); CREATININE 0.51 MG/DL (0.50-1.00)
[2017-09-15] MEDS: SODIUM CHLORIDE 0.9% FLUSH 10 ML FLUSH IV FLUSH SCH ×2 (09:00→21:00)
[2017-09-15 09:14] VITALS: BP 125/78; PULSE 83; RESP 16; TEMP 98.2; O2SAT 99
[2017-09-15] MEDS ORDERED: DEXAMETHASONE SOD PHOS 4 MG/ML VIAL IV ONE (12:00)
[2017-09-15] MEDS ORDERED: LIDOCAINE HCL 1% PF 5 ML SYRINGE OTHER ONE (12:00)
[2017-09-15] MEDS ORDERED: ONDANSETRON HCL 4 MG/2 ML VIAL IV ONE (12:00)
[2017-09-15] MEDS ORDERED: PROPOFOL 200 MG/20 ML AMP IV ONE (12:00)
[2017-09-15 12:28] VITALS: BP 129/63; PULSE 63; RESP 16; TEMP 98.7; O2SAT 100
[2017-09-15] MEDS ORDERED: HYDROmorphone HCL PF 0.5 MG/0.5 ML SYRINGE IV PUSH PRN (14:00)
[2017-09-15] MEDS ORDERED: MUPIROCIN 2% OINT 22 GM TUBE ONE (14:58)
[2017-09-15] MEDS ORDERED: BUPIVACAINE HCL PF 0.5% 30 ML VIAL ONE (15:00)
[2017-09-15] MEDS ORDERED: LIDOCAINE HCL 1% 50 ML VIAL ONE (15:01)
--- NOTE | 2017-09-15 15:03 | HHI.PR ---
Subjective Remarks Follow-up left wrist infection. Patient seen and examined, does complain of continued pain. Has found relief with Dilaudid IV versus morphine IV. Patient denies any chest pain, fevers, chills, abdominal pain, nausea, vomiting, diarrhea. Patient to OR today with Dr. Timmons at 3 PM. Vital signs stable. Afebrile. Objective Vitals Vital Signs Date Time Temp Pulse Resp B/P (MAP) Pulse Ox O2 Delivery O2 Flow Rate FiO2 09/15/17 12:28 98.7 63 16 129/63 (85) 100 09/15/17 10:25 09/15/17 09:14 98.2 83 16 125/78 (94) 99 09/15/17 03:31 97.2 61 17 107/65 (79) 96 09/14/17 23:13 98.0 62 17 113/61 (78) 92 09/14/17 20:13 98.7 60 17 136/86 (103) 94 09/14/17 19:30 98.0 63 16 138/74 (95) 100 09/14/17 19:15 99 16 128/73 (91) 99 09/14/17 19:00 60 16 136/83 (100) 99 09/14/17 18:45 67 16 140/85 (103) 99 09/14/17 18:30 98 16 115/66 (82) 98 09/14/17 18:29 98.0 99 16 124/64 (84) 90 I/O 09/14/17 09/14/17 09/14/17 09/15/17 09/15/17 09/15/17 07:00 15:00 23:00 07:00 15:00 23:00 Intake Total 850 ml 480 ml 100 ml Output Total 15 ml Balance 835 ml 480 ml 100 ml Intake Oral 480 ml IV Total 50 ml 100 ml Other 800 ml Output Estimated Blood Loss 15 ml # Voids 1 # Bowel Movements 0 Result Diagram: 09/15/1743109/15/17431 Objective Remarks GENERAL: Well-developed, well-nourished patient with complaints of left hand pain. SKIN: Warm and dry. Left upper extremity with Brando and elevated. HEAD: Normocephalic. Atraumatic. EYES: Pupils equal and round. No scleral icterus. No injection or drainage. ENT: No nasal bleeding or discharge. Mucous membranes pink and moist. NECK: Supple. Trachea midline. CARDIOVASCULAR: Regular rate and rhythm. S1, S2 noted. No murmur appreciated. RESPIRATORY: No accessory muscle use. Clear to auscultation. Breath sounds equal bilaterally. GASTROINTESTINAL: Abdomen soft, non-tender, nondistended. Normoactive bowel sounds x4. MUSCULOSKELETAL: No obvious deformities. Extremities without clubbing, cyanosis , or edema. NEUROLOGICAL: Awake and alert. No obvious cranial nerve deficits. Motor grossly within normal limits. 5/5 muscle strength in bilateral upper and lower extremities. Normal speech. A/P Assessment and Plan 36 y/o female with no medical history was sent to the ED for evaluation of her left wrist infection. Post op infection, s/p left wrist ORIF on 09/09/17 - Hand surgery, Dr. Timmons following and managing patient. - POD #1 Exploration, wash and antibiotic bead insertion and wound VAC application on left distal forearm/wrist. OR today, for exploration, wash and wound vac change. - Infectious disease following, appreciate input and recommendations. Continue Zosyn. Patient has vancomycin beads placed in wound bed. - Wound cultures pending. Follow. - Continue IVF. Ensure hydration. - Pain management with IV Dilaudid and PO [place] as needed. DVT prophylaxis: SCDs Discharge Planning Awaiting clinical improvement and discharge recommendations from hand surgery. Toya Sherman Sep 15, 2017 15:03
[2017-09-15] MEDS ORDERED: NEOMYCIN/POLYMYXIN 1 ML G.U. IRRIGANT ONE (15:04)
[2017-09-15] MEDS ORDERED: MIDAZOLAM HCL 2 MG/2 ML VIAL ONE (16:43)
[2017-09-15] MEDS ORDERED: *morphine SULFATE 10 MG/ML PERIprocedure ONLY ONE (17:15)
--- NOTE | 2017-09-15 17:15 | PD.OP ---
Operative Report Preoperative Diagnosis: (1) Postoperative infection (2) communitted displaced intraarticular fracture distal radius left wrist Postoperative Diagnosis: (1) Postoperative infection (2) communitted displaced intraarticular fracture distal radius left wrist Procedure: wash, debridement and partial closure left forearm wound Anesthesia: general Surgeon: Kurt Moon [employer] Yarn Slitting Machine Operator(s): kwabena Operation and Findings: no purulence wound looking healthy and clean partial closure of wound with vessel loops Kurt Moon MD Sep 15, 2017 17:15
--- NOTE | 2017-09-15 17:45 | MP ---
cc: Kurt Moon MD DATE OF OPERATION: 09/15/2017 PREOPERATIVE DIAGNOSIS: Comminuted distal radius fracture, status post open reduction and internal fixation with postoperative surgical site infection. POSTOPERATIVE DIAGNOSIS: Surgical site infection, status post open reduction and internal fixation of distal radius fracture, left wrist. PROCEDURE PERFORMED: Exploration, wash debridement and partial closure of wound, left forearm. SURGEON: Kurt Moon MD ANESTHESIA: General. ESTIMATED BLOOD LOSS: 10 mL. TOURNIQUET: No tourniquet was used. DISPOSITION: To PACU, stable. INDICATIONS FOR PROCEDURE: This is a 36-year-old female status post open reduction and internal fixation of distal radius with volar plate and screws almost a week ago, who was found to have surgical site infection. She was brought in yesterday for incision, drainage, wash and wound VAC application. The patient was consented for a possible wound VAC change today. She was explained the risks and benefits of the procedure. PROCEDURE IN DETAIL: The patient was brought to the operating room under general anesthesia, the left upper extremity was sterilely prepped and draped, and the previously placed wound VAC was removed. On further exploration, there was no evidence of purulent material in the region. The tissue looked healthy with no evidence of active infection. The carpal tunnel incision was opened and no evidence of purulence was noted. The antibiotic beads were left in place. Thorough wash of the wound was carried out using normal saline mixed with irrigant. About a liter of solution was used. Packing of the carpal tunnel incision was carried out. The carpal tunnel incision was loosely approximated. The distal forearm wound was partially approximated using alberto and vessel loops in a shoelace pattern. The patient had good distal circulation at the end of the procedure. She was recovered and taken to recovery in stable condition. The plan will be to bring the patient tomorrow again for possible wound closure of the left forearm. Kurt Moon MD SE/OLIVIA , 05:18 PM , 05:43 PM BRIAN
[2017-09-15] MEDS ORDERED: POVIDONE IODINE 5% (ANTISEPSIS KIT) 4 APPLICATIONS EACH NARE PRN (18:00)
[2017-09-15] MEDS ORDERED: SODIUM CHLORID 0.9% 500 ML IV PRN (18:00)
[2017-09-15] MEDS ORDERED: LACTATED RINGER'S 1000 ML IV PRN (18:00)
[2017-09-15] MEDS ORDERED: CHLORHEXIDINE GLUCONATE 2 % 1 PACK (2 CLOTHS) TOPICAL PRN (18:00)
[2017-09-15] MEDS ORDERED: MUPIROCIN 2% OINT 22 GM TUBE EXTERNAL ONE (18:03)
[2017-09-15] MEDS ORDERED: DO NOT ADM ANY ANTICOAGULANT DRUGS PRN (18:15)
[2017-09-15] MEDS ORDERED: Vancomycin Consult Pharmacy 1 EA OTHER SCH (18:45)
[2017-09-15 19:38] VITALS: BP 111/58; PULSE 62; RESP 18; TEMP 97.9; O2SAT 95
[2017-09-15] MEDS ORDERED: VANCOMYCIN 1,500 MG/NS 500 ML IV ONE ×2 (20:00)
[2017-09-15] MEDS: HYDROmorphone HCL PF 2 MG/ML VIAL IV PUSH PRN (22:35)
[2017-09-15 23:07] VITALS: BP 111/74; PULSE 73; RESP 18; TEMP 98.2; O2SAT 97
[2017-09-16] MEDS: HYDROmorphone HCL PF 2 MG/ML VIAL IV PUSH PRN ×7 (01:30→23:20)
[2017-09-16] MEDS: PIPERACIL-TAZO 3.375 GM PREMIX 50 ML IV SCH ×3 (02:15→14:58)
[2017-09-16] MEDS: ACETAMINOPHEN/HYDROcodone 325 MG/10 MG TAB PO PRN ×3 (03:02→16:08)
[2017-09-16 03:03] VITALS: BP 110/59; PULSE 60; RESP 18; TEMP 98.1; O2SAT 97
[2017-09-16] MEDS ORDERED: LACTATED RINGER'S 1000 ML IV PRN (04:30)
[2017-09-16] MEDS ORDERED: CHLORHEXIDINE GLUCONATE 2 % 1 PACK (2 CLOTHS) TOPICAL PRN (04:30)
[2017-09-16] MEDS ORDERED: METOPROLOL TARTRATE 25 MG TAB PO PRN (04:30)
[2017-09-16] MEDS ORDERED: POVIDONE IODINE 5% (ANTISEPSIS KIT) 4 APPLICATIONS EACH NARE PRN (04:30)
[2017-09-16] MEDS ORDERED: SODIUM CHLORID 0.9% 500 ML IV PRN (04:30)
[2017-09-16 08:00] VITALS: BP 100/67; PULSE 60; RESP 16; TEMP 98; O2SAT 96
[2017-09-16 08:05] LABS: AUTOMATED NEUTROPHIL # 5.2 TH/MM3 (1.8-7.7); BASOPHIL % 0.6 % (0.0-2.0); EOSINOPHIL # 0.1 TH/MM3 (0-0.4); EOSINOPHIL % 0.7 % (0.0-4.0); HEMATOCRIT 28.4 % (35.0-46.0); HEMOGLOBIN 9.3 GM/DL (11.6-15.3); LYMPH % 26.5 % (9.0-44.0); LYMPHOCYTE # 2.1 TH/MM3 (1.0-4.8); MEAN CELL VOLUME 79.6 FL (80.0-100.0); MEAN CORPUSCULAR HGB CONC 32.6 % (32.0-36.0); MEAN PLATELET VOLUME 7.4 FL (7.0-11.0); MONO % 7.1 % (0.0-8.0); MONOCYTE # 0.6 TH/MM3 (0-0.9); NEUT % 65.1 % (16.0-70.0); PLATELET COUNT 436 TH/MM3 (150-450); RED BLOOD COUNT 3.57 MIL/MM3 (4.00-5.30); RED CELL DISTRIBUTION WIDTH 16.1 % (11.6-17.2)
[2017-09-16] MEDS: VANCOMYCIN 1,500 MG/NS 500 ML IV SCH ×4 (08:36→20:06)
[2017-09-16] MEDS: SODIUM CHLORIDE 0.9% FLUSH 10 ML FLUSH IV FLUSH SCH ×2 (09:00→21:00)
[2017-09-16 12:00] VITALS: BP 114/63; PULSE 64; RESP 16; TEMP 97.8; O2SAT 97
[2017-09-16] MEDS ORDERED: DEXAMETHASONE SOD PHOS 4 MG/ML VIAL IV ONE (12:00)
[2017-09-16] MEDS ORDERED: PROPOFOL 200 MG/20 ML AMP IV ONE (12:00)
[2017-09-16] MEDS ORDERED: ONDANSETRON HCL 4 MG/2 ML VIAL IV PUSH ONE (12:00)
[2017-09-16] MEDS ORDERED: LIDOCAINE HCL 1% PF 5 ML SYRINGE OTHER ONE (12:00)
[2017-09-16] MEDS ORDERED: KETOROLAC TROMETHAMINE 30 MG/ML (IVP) VIAL IV PUSH ONE (12:00)
--- NOTE | 2017-09-16 14:45 | HHI.PR ---
Objective Vital Signs Date Time Temp Pulse Resp B/P (MAP) Pulse Ox O2 Delivery O2 Flow Rate FiO2 09/16/17 12:00 97.8 64 16 114/63 (80) 97 09/16/17 08:00 Room Air 09/16/17 08:00 98.0 60 16 100/67 (78) 96 09/16/17 05:32 17 09/16/17 04:15 18 09/16/17 03:03 98.1 60 18 110/59 (76) 97 09/15/17 23:28 Room Air 09/15/17 23:07 98.2 73 18 111/74 (86) 97 09/15/17 19:38 97.9 62 18 111/58 (75) 95 09/15/17 17:45 97.8 64 15 125/75 (92) 98 Nasal Cannula 2 09/15/17 17:30 68 15 123/78 (93) 100 Nasal Cannula 2 09/15/17 17:13 97.7 77 15 122/85 (97) 100 Nasal Cannula 2 I/O 09/15/17 09/15/17 09/15/17 09/16/17 09/16/17 09/16/17 07:00 15:00 23:00 07:00 15:00 23:00 Intake Total 480 ml 100 ml 1575 ml 925 ml 565 ml Output Total 0 ml Balance 480 ml 100 ml 1575 ml 925 ml 565 ml Intake Oral 480 ml 300 ml 360 ml IV Total 100 ml 825 ml 565 ml 565 ml Other 450 ml Output Urine Total 0 ml # Voids 1 2 3 # Bowel Movements 0 0 Result Diagram: 09/16/17 0616 09/15/17 0432 A/P Problem List: (1) Postoperative infection ICD Code: T81.4XXA - Infection following a procedure, initial encounter Status: Acute Assessment and Plan 36 y/o female status post left wrist ORIF on 09/09/2017 admitted for reaction versus postop infection. Reaction versus post op infection, s/p left wrist ORIF on 09/09/17 Continue OR washes and explorations. Hand surgeon following Continue Zosyn Vancomycin beads have been placed in the wound bed Continue to follow cultures Pain management DVT prophylaxis SCDs Discharge Planning Awaiting clinical improvement discharge recommendations from hand surgery. Problem Qualifiers (1) Postoperative infection: Qualified Codes: T81.4XXA - Infection following a procedure, initial encounter Louie Hansen MD Sep 16, 2017 14:45
[2017-09-16] MEDS: SODIUM CHLOR 0.9% 1000 ML INJ 1,000 ML IV SCH ×2 (15:07→21:51)
[2017-09-16 16:00] VITALS: BP 119/68; PULSE 59; RESP 16; TEMP 98.1; O2SAT 100
--- NOTE | 2017-09-16 16:42 | PD.ID.CON ---
History of Present Illness Service ID Consult Requested By Dr Olmedo Reason for Consult L wrist infx Primary Care Physician No Primary Care Physician Diagnoses: History of Present Illness 36 yo F sp distal L forearm fracture 10 days ago sp ORIF developped infection ( redness, drainage) 1 week post op and was admitted t [facility] She underwent 2 surgeries (I+Ds) and wound cultures were done and they are negarvie so far She was started on zosyn, vancomycin No fevers c/o L hand pain WBC is normal She has no other c/o Review of Systems Except as stated in HPI: all other systems reviewed are Neg Past Family Social History Allergies: Coded Allergies: No Known Allergies (Verified Allergy, Unknown, 09/14/17) Past Medical History ectopic pregnosncy Past Surgical History lap sx for ectopic Active Ordered Medications Medications where reviewed in EMR Antibiotics Include: zosyn vanco Family History reviewed/non contributory Social History No Tobacco. No ETOH. No Illicit Drugs. Physical Exam Vital Signs Vital Signs Date Time Temp Pulse Resp B/P (MAP) Pulse Ox O2 Delivery O2 Flow Rate FiO2 09/16/17 15:33 18 09/16/17 12:00 97.8 64 16 114/63 (80) 97 09/16/17 08:00 Room Air 09/16/17 08:00 98.0 60 16 100/67 (78) 96 09/16/17 04:15 18 09/16/17 03:03 98.1 60 18 110/59 (76) 97 09/15/17 23:28 Room Air 09/15/17 23:07 98.2 73 18 111/74 (86) 97 09/15/17 19:38 97.9 62 18 111/58 (75) 95 09/15/17 17:45 97.8 64 15 125/75 (92) 98 Nasal Cannula 2 09/15/17 17:30 68 15 123/78 (93) 100 Nasal Cannula 2 09/15/17 17:13 97.7 77 15 122/85 (97) 100 Nasal Cannula 2 Physical Exam CONSTITUTIONAL/GENERAL: This is an adequately nourished patient, in no apparent distress. TUBES/LINES/DRAINS: SKIN: No jaundice, rashes, or lesions. Skin temperature appropriate. Not diaphoretic. HEAD: Atraumatic. Normocephalic. EYES: Pupils equal and round and reactive. Extraocular motions intact. No scleral icterus. No injection or drainage. Fundi not examined. ENT: Hearing grossly normal. Nose without bleeding or purulent drainage. Throat without visible erythema, exudates, masses, or lesions. NECK: Trachea midline. Supple, nontender. No palpable thyroid enlargement or nodularity. CARDIOVASCULAR: Regular rate and rhythm without murmurs, gallops, or rubs. No JVD. Peripheral pulses symmetric. RESPIRATORY/CHEST: Symmetric, unlabored respirations. Clear to auscultation. Breath sounds equal bilaterally. No wheezes, rales, or rhonchi. GASTROINTESTINAL: Abdomen soft, non-tender, nondistended. No hepato-splenomegaly , or palpable masses. No guarding. Bowel sounds present. GENITOURINARY: Without palpable bladder distension. Bautista catheter in place. MUSCULOSKELETAL: Extremities without clubbing, cyanosis, or edema. LUE dressing in place, intact fingers free of neurovascular deficit No joint tenderness or effusion noted. No calf tenderness. No mottling or clubbing. LYMPHATICS: No palpable cervical or supraclavicular adenopathy. NEUROLOGICAL: Awake and alert. Motor and sensory grossly within normal limits. Follows commands. Clear speech. Moves all extremities. PSYCHIATRIC: No obvious anxiety/depression. no apparent hallucinations or other psychotic thought process. Laboratory Laboratory Tests Test 09/16/17 06:16 White Blood Count 8.0 Red Blood Count 3.57 Hemoglobin 9.3 Hematocrit 28.4 Mean Corpuscular Volume 79.6 Mean Corpuscular Hemoglobin 26.0 Mean Corpuscular Hemoglobin Concent 32.6 Red Cell Distribution Width 16.1 Platelet Count 436 Mean Platelet Volume 7.4 Neutrophils (%) (Auto) 65.1 Lymphocytes (%) (Auto) 26.5 Monocytes (%) (Auto) 7.1 Eosinophils (%) (Auto) 0.7 Basophils (%) (Auto) 0.6 Neutrophils # (Auto) 5.2 Lymphocytes # (Auto) 2.1 Monocytes # (Auto) 0.6 Eosinophils # (Auto) 0.1 Basophils # (Auto) 0.0 CBC Comment DIFF FINAL Differential Comment Date/Time Source Procedure Growth Status 09/14/17 17:07 Wound Arm Fungal Smear - Final NO FUNGAL ELEMENTS SEEN. Resulted 09/14/17 17:07 Wound Arm Fungal Culture Pending Resulted Result Diagram: 09/16/17 0616 09/15/17 0432 Assessment and Plan Assessment and Plan Culture negative L distal forearm infection Suspected infected harware L forearm Rec's: cont follow cultures untill final anticipate IV abx (vancomycin +/- oral levaquine) dc zosyn start po levaquin fu clx untill final fu P AFB clx Elly Arechiga MD Sep 16, 2017 16:42
[2017-09-16] MEDS: LEVOFLOXACIN 750 MG PREMIX INJ 150 ML IV SCH (17:59)
[2017-09-16] MEDS ORDERED: NEOMYCIN/POLYMYXIN 1 ML G.U. IRRIGANT ONE (19:09)
[2017-09-16 19:13] VITALS: BP 125/82; PULSE 60; RESP 18; TEMP 98.2; O2SAT 96
[2017-09-16] MEDS ORDERED: BACITRACIN TOP OINT 15 GM TUBE ONE (19:45)
[2017-09-16] MEDS ORDERED: VANCOMYCIN 500 MG VIAL ONE (20:00)
[2017-09-16] MEDS ORDERED: VANCOMYCIN HCL 1000 MG VIAL ONE (20:00)
--- NOTE | 2017-09-16 20:41 | PD.OP ---
Operative Report Preoperative Diagnosis: (1) communitted displaced intraarticular fracture distal radius left wrist (2) Postoperative infection Postoperative Diagnosis: (1) communitted displaced intraarticular fracture distal radius left wrist (2) Postoperative infection Procedure: wash, debridement and partial closure left forearm wound Anesthesia: general Surgeon: Kurt Moon Department Head College Or University(s): kwabena Operation and Findings: left forearm wound clean no purulence carpal tunnel wound mild drainage partial closure of wound left forearm Kurt Moon MD Sep 16, 2017 20:41
[2017-09-16] MEDS ORDERED: DO NOT ADM ANY ANTICOAGULANT DRUGS PRN (20:43)
[2017-09-16] MEDS ORDERED: *morphine SULFATE 4 MG/ML PERIprocedure ONLY ONE (20:56)
--- NOTE | 2017-09-16 21:13 | MP ---
cc: Kurt Moon MD, Srikanth MD DATE OF OPERATION: 09/16/2017 PREOPERATIVE DIAGNOSIS: Distal radius fracture, status post open reduction internal fixation with a postoperative surgical site infection. POSTOPERATIVE DIAGNOSIS: Distal radius fracture, status post open reduction internal fixation with a surgical site infection. PROCEDURE: Exploration, wash, debridement and partial closure of the left forearm wound. SURGEON: Kurt Moon MD ANESTHESIA: General. ESTIMATED BLOOD LOSS: Minimal. TOURNIQUET TIME: No tourniquet was used. DISPOSITION: To PACU stable. INDICATIONS: The patient is a 36-year-old female status post open reduction internal fixation and open left carpal tunnel release, left distal radius was found to have surgical site infection. The patient was taken back multiple times for wash and debridement. She was consented for exploration, wash and partial closure of the left forearm wound. The patient was explained the risks and benefits of the procedure. PROCEDURE IN DETAIL: The patient was brought to the operating room under general anesthesia. The left upper extremity was thoroughly prepped and draped. The previously placed alberto and loops holding the skin edges were removed both proximally and distally. Thorough wash of the wound was carried out using normal saline mixed with irrigant. The carpal tunnel incision was opened and washed with normal saline with irrigant, about 1 liter of solution was used. Intraoperative findings included no evidence of purulence, no drainage. The wound bed looked clean and healthy. Proximally part of the wound was closed with 4-0 Monocryl in a continuous subcuticular fashion. Distally part of the wound was closed with alberto. The middle 1/3 of the wound was left open for possible closure tomorrow. The carpal tunnel wound was packed with 1/4-inch iodoform packing material and closed with 5-0 nylon loosely. A Xeroform, bacitracin dressing applied. Bulky hand dressing was applied which was held in place by [facility] and a dorsal wrist splint was applied. The patient had good distal circulation at the end of the procedure. She was recovered and sent to recovery in stable condition. The plan will be to continue with antibiotics, bring her tomorrow for possible closure of the wound. Kurt Moon MD SE/ , 08:46 PM , 09:12 PM MTDJulio Cesar
[2017-09-17] VITALS (8 sets, daily range): BP systolic 105–141; BP diastolic 58–79; PULSE 57–82; RESP 16–20; TEMP 97.2–98.5; O2SAT 93–100
[2017-09-17] MEDS: ACETAMINOPHEN/HYDROcodone 325 MG/10 MG TAB PO PRN ×4 (01:28→23:53)
[2017-09-17] MEDS: HYDROmorphone HCL PF 2 MG/ML VIAL IV PUSH PRN ×5 (02:20→22:19)
[2017-09-17] MEDS ORDERED: SODIUM CHLORID 0.9% 500 ML IV PRN (03:45)
[2017-09-17] MEDS ORDERED: CHLORHEXIDINE GLUCONATE 2 % 1 PACK (2 CLOTHS) TOPICAL PRN (03:45)
[2017-09-17] MEDS ORDERED: METOPROLOL TARTRATE 25 MG TAB PO PRN (03:45)
[2017-09-17] MEDS ORDERED: LACTATED RINGER'S 1000 ML IV PRN (03:45)
[2017-09-17] MEDS ORDERED: POVIDONE IODINE 5% (ANTISEPSIS KIT) 4 APPLICATIONS EACH NARE PRN (03:45)
[2017-09-17 06:24] LABS: AUTOMATED NEUTROPHIL # 5.9 TH/MM3 (1.8-7.7); BASOPHIL % 0.5 % (0.0-2.0); EOSINOPHIL % 0.1 % (0.0-4.0); HEMATOCRIT 27.5 % (35.0-46.0); HEMOGLOBIN 9.2 GM/DL (11.6-15.3); LYMPH % 14.2 % (9.0-44.0); LYMPHOCYTE # 1.1 TH/MM3 (1.0-4.8); MEAN CORPUSCULAR HEMOGLOBIN 26.7 PG (27.0-34.0); MEAN CORPUSCULAR HGB CONC 33.4 % (32.0-36.0); MEAN PLATELET VOLUME 7.1 FL (7.0-11.0); MONO % 6.7 % (0.0-8.0); MONOCYTE # 0.5 TH/MM3 (0-0.9); NEUT % 78.5 % (16.0-70.0); PLATELET COUNT 459 TH/MM3 (150-450); RED BLOOD COUNT 3.44 MIL/MM3 (4.00-5.30); RED CELL DISTRIBUTION WIDTH 16.4 % (11.6-17.2); WHITE BLOOD COUNT 7.5 TH/MM3 (4.0-11.0)
[2017-09-17 07:36] LABS: ALBUMIN 2.9 GM/DL (3.4-5.0); ALKALINE PHOSPHATASE 49 U/L (45-117); ALT (GPT) 16 U/L (10-53); AST (GOT) 7 U/L (15-37); BICARBONATE 26.1 MEQ/L (21.0-32.0); BLOOD UREA NITROGEN 9 MG/DL (7-18); CALCIUM 8.6 MG/DL (8.5-10.1); CHLORIDE 106 MEQ/L (98-107); CREATININE 0.75 MG/DL (0.50-1.00); GLOMERULAR FILTRATION RATE 86 ML/MIN (>89); GLUCOSE,RANDOM 102 MG/DL (74-106); SODIUM (NA) 141 MEQ/L (136-145); TOTAL BILIRUBIN ADULT 0.2 MG/DL (0.2-1.0); TOTAL PROTEIN 6.1 GM/DL (6.4-8.2)
[2017-09-17] MEDS ORDERED: PHARMACY ORDERED LAB ONE (07:45)
[2017-09-17] MEDS: VANCOMYCIN 1,500 MG/NS 500 ML IV SCH ×4 (09:03→20:22)
[2017-09-17] MEDS: SODIUM CHLORIDE 0.9% FLUSH 10 ML FLUSH IV FLUSH SCH ×2 (09:03→20:22)
[2017-09-17] MEDS ORDERED: MUPIROCIN 2% OINT 22 GM TUBE ONE (10:18)
[2017-09-17] MEDS ORDERED: BUPIVACAINE HCL PF 0.5% 30 ML VIAL ONE (10:20)
[2017-09-17] MEDS ORDERED: LIDOCAINE HCL 2% 100 MG/5 ML SYRINGE ONE (10:20)
[2017-09-17] MEDS ORDERED: LIDOCAINE HCL 1% PF 10 ML VIAL ONE (10:22)
[2017-09-17] MEDS ORDERED: NEOMYCIN/POLYMYXIN 1 ML G.U. IRRIGANT ONE (11:09)
[2017-09-17] MEDS ORDERED: ACETAMINOPHEN 1000 MG/100 ML 100 ML IV ONE (11:19)
[2017-09-17] MEDS ORDERED: BACITRACIN TOP OINT 15 GM TUBE ONE (11:35)
[2017-09-17] MEDS ORDERED: BACITRACIN OPHT OINT 3.5 GM TUBO ONE (11:35)
[2017-09-17] MEDS ORDERED: DO NOT ADM ANY ANTICOAGULANT DRUGS PRN (11:57)
--- NOTE | 2017-09-17 11:58 | PD.OP ---
Operative Report Preoperative Diagnosis: (1) communitted displaced intraarticular fracture distal radius left wrist (2) Postoperative infection Postoperative Diagnosis: (1) communitted displaced intraarticular fracture distal radius left wrist (2) Postoperative infection Procedure: exploration, wash and closure of the wound left forearm Anesthesia: general Surgeon: Kurt Moon Home Office Claim Specialist(s): kwabena Operation and Findings: no purulence wound clean closure of the forearm and carpal tunnel wound with packing Kurt Moon MD Sep 17, 2017 11:58
[2017-09-17] MEDS ORDERED: DEXAMETHASONE SOD PHOS 4 MG/ML VIAL IV ONE (12:00)
[2017-09-17] MEDS ORDERED: LIDOCAINE HCL 1% PF 5 ML SYRINGE OTHER ONE (12:00)
[2017-09-17] MEDS ORDERED: PROPOFOL 200 MG/20 ML AMP IV ONE (12:00)
[2017-09-17] MEDS ORDERED: LACTATED RINGER'S 1000 ML INJ 1,000 ML IV ONE (12:00)
[2017-09-17] MEDS ORDERED: ONDANSETRON HCL 4 MG/2 ML VIAL IV PUSH ONE (12:00)
[2017-09-17] MEDS ORDERED: ceFAZolin INJ 1,000 MG VIAL IV ONE (12:00)
[2017-09-17] MEDS ORDERED: MIDAZOLAM HCL 2 MG/2 ML VIAL ONE (12:01)
--- NOTE | 2017-09-17 12:40 | MP ---
cc: Kurt Moon MD DATE OF OPERATION: 09/17/2017 DATE OF PROCEDURE: 09/17/2017 PREOPERATIVE DIAGNOSES: Comminuted distal radius fracture, status post open reduction and internal fixation with surgical site infection. POSTOPERATIVE DIAGNOSES: Comminuted distal radius fracture, status post open reduction and internal fixation with a postop surgical site infection. PROCEDURE PERFORMED: Exploration, wash and closure of left forearm and carpal tunnel wound. SURGEON: Kurt Moon MD ANESTHESIA: General. ESTIMATED BLOOD LOSS: Minimal. TOURNIQUET: No tourniquet was used. DISPOSITION: To PACU, stable. INDICATIONS FOR PROCEDURE: This is a 36-year-old female with distal radius fracture, underwent open reduction and internal fixation about 1-2 weeks ago. The patient developed surgical site infection. She underwent multiple wash, debridement and antibiotic bead placement. The patient was brought in today for exploration, wash and possible closure of the wound. She was explained the risks and benefits of the procedure. She was afebrile and the white count was normal. DESCRIPTION OF PROCEDURE: The patient was brought to the operating room where under general anesthesia, the left upper extremity was sterilely prepped and draped. The previously placed alberto and vessel loops were removed. No evidence of purulence was noted. There was swelling of the surrounding soft tissue. Mild serous drainage noted from the region. Thorough wash was given using normal saline mixed with irrigant; about a liter of solution was used throughout the left forearm wound and over the carpal tunnel wound. The forearm and the carpal tunnel wound was then loosely approximated with 4-0 Monocryl in a subcuticular fashion and 5-0 nylon on the carpal tunnel region. Packing of the wounds were also carried out. Bulky had dressing was applied which was held in place by soft roll and a dorsal splint was applied. The patient had good distal circulation at the end of the procedure. She was concentric and stable condition. The plan will be to continue with IV antibiotics based on ID recommendations and plan for long-term antibiotics and plan for discharge in a day or two depending on how the wound looks. Kurt Moon MD SE/OLIVIA , 11:58 AM , 12:38 PM BRIAN
--- NOTE | 2017-09-17 16:19 | HHI.PR ---
Subjective Remarks Status post closure of left hand wound today. Denies any chest pain shortness of breath. Denies nausea vomiting. Reports pain is under control. Objective Vital Signs Date Time Temp Pulse Resp B/P (MAP) Pulse Ox O2 Delivery O2 Flow Rate FiO2 09/17/17 16:00 97.5 82 19 116/70 (85) 98 09/17/17 12:30 98.5 61 14 147/71 (96) 100 Room Air 09/17/17 12:15 51 14 135/79 (97) 100 Nasal Cannula 2 09/17/17 12:04 97.7 57 20 141/79 (99) 96 09/17/17 12:00 53 14 135/82 (99) 100 Nasal Cannula 2 09/17/17 12:00 98.0 80 20 128/77 (94) 97 09/17/17 11:58 98.5 65 14 136/85 (102) 100 Nasal Cannula 2 09/17/17 09:03 18 09/17/17 08:00 97.9 62 20 117/66 (83) 96 09/17/17 08:00 Room Air 09/17/17 06:11 18 09/17/17 04:00 98.3 62 17 105/59 (74) 97 09/17/17 00:01 98.5 63 16 108/58 (75) 93 09/16/17 22:20 Nasal Cannula 2.00 09/16/17 21:15 98.1 57 12 118/64 (82) 100 Nasal Cannula 2 09/16/17 21:00 60 10 104/61 (75) 99 Nasal Cannula 2 09/16/17 20:45 63 13 101/60 (74) 100 Nasal Cannula 3 09/16/17 20:39 97.0 73 12 116/76 (89) 96 Nasal Cannula 3 09/16/17 19:13 98.2 60 18 125/82 (96) 96 I/O 09/16/17 09/16/17 09/16/17 09/17/17 09/17/17 09/17/17 07:00 15:00 23:00 07:00 15:00 23:00 Intake Total 925 ml 565 ml 700 ml 240 ml 100 ml Output Total 5 ml 10 ml Balance 925 ml 565 ml 695 ml 240 ml 90 ml Intake Oral 360 ml 0 ml 240 ml 0 ml IV Total 565 ml 565 ml 450 ml 100 ml Other 250 ml Output Urine Total 0 ml Estimated Blood Loss 5 ml 10 ml # Voids 3 2 4 # Bowel Movements 0 Result Diagram: 09/17/1751609/17/17516 Objective Remarks GENERAL: Patient walking in room. Appears comfortable. SKIN: Warm and dry. HEAD: Normocephalic. EYES: No scleral icterus. No injection or drainage. NECK: Supple, trachea midline. No JVD. CARDIOVASCULAR: Regular rate and rhythm without murmurs, gallops, or rubs. RESPIRATORY: Breath sounds equal bilaterally. No accessory muscle use. GASTROINTESTINAL: Abdomen soft, non-tender, nondistended. MUSCULOSKELETAL: No cyanosis, or edema. Left hand dressed. BACK: Nontender without obvious deformity. No CVA tenderness. A/P Assessment and Plan 36 y/o female status post left wrist ORIF on 09/09/2017 admitted for reaction versus postop infection. //Reaction versus post op infection, s/p left wrist ORIF on 09/09/17 Continue OR washes and explorations. Hand surgeon following Continue Zosyn Vancomycin beads have been placed in the wound bed Continue to follow cultures Pain management = Continue antibiotics as per ID. Disposition as per hand surgery. Appreciate assistance. //DVT prophylaxis SCDs Discharge Planning Discharge when cleared by hand surgery and infectious disease. May need home IV antibiotics. Mahad Diez MD Sep 17, 2017 16:19
[2017-09-17] MEDS ORDERED: MAGNESIUM HYDROXIDE SUSP 30 ML CUP PO ONE (18:00)
[2017-09-17] MEDS: LEVOFLOXACIN 750 MG PREMIX INJ 150 ML IV SCH (18:15)
[2017-09-17] MEDS: SODIUM CHLOR 0.9% 1000 ML INJ 1,000 ML IV SCH (18:15)
[2017-09-18] VITALS (7 sets, daily range): BP systolic 118–126; BP diastolic 56–79; PULSE 58–69; RESP 16–18; TEMP 97.7–99; O2SAT 95–99
[2017-09-18] MEDS: LEVOFLOXACIN 750 MG TAB PO SCH (08:46)
[2017-09-18] MEDS: VANCOMYCIN 1,500 MG/NS 500 ML IV SCH ×4 (08:46→21:04)
[2017-09-18] MEDS: ACETAMINOPHEN/HYDROcodone 325 MG/10 MG TAB PO PRN ×4 (08:47→23:44)
[2017-09-18] MEDS: HYDROmorphone HCL PF 2 MG/ML VIAL IV PUSH PRN ×2 (10:00→13:31)
[2017-09-18] MEDS: SODIUM CHLORIDE 0.9% FLUSH 10 ML FLUSH IV FLUSH SCH ×2 (11:00→21:00)
--- NOTE | 2017-09-18 11:20 | HHI.PR ---
Subjective Remarks Patient says she is feeling well. No complaints. Reports pain is under control. Objective Vital Signs Date Time Temp Pulse Resp B/P (MAP) Pulse Ox O2 Delivery O2 Flow Rate FiO2 09/18/17 09:35 95 21 09/18/17 08:00 98.6 66 16 123/79 (94) 97 09/18/17 00:15 98.3 58 16 126/77 (93) 99 09/17/17 20:05 97.2 62 16 129/76 (93) 100 09/17/17 18:24 98 Nasal Cannula 2.00 09/17/17 17:17 16 09/17/17 16:00 97.5 82 19 116/70 (85) 98 09/17/17 12:30 98.5 61 14 147/71 (96) 100 Room Air 09/17/17 12:15 51 14 135/79 (97) 100 Nasal Cannula 2 09/17/17 12:04 97.7 57 20 141/79 (99) 96 09/17/17 12:00 53 14 135/82 (99) 100 Nasal Cannula 2 09/17/17 12:00 98.0 80 20 128/77 (94) 97 09/17/17 11:58 98.5 65 14 136/85 (102) 100 Nasal Cannula 2 I/O 09/17/17 09/17/17 09/17/17 09/18/17 09/18/17 09/18/17 07:00 15:00 23:00 07:00 15:00 23:00 Intake Total 240 ml 1615 ml 900 ml 720 ml Output Total 10 ml 700 ml Balance 240 ml 1605 ml 200 ml 720 ml Intake Oral 240 ml 0 ml 900 ml 720 ml IV Total 1615 ml Output Urine Total 700 ml Estimated Blood Loss 10 ml # Voids 4 6 # Bowel Movements 0 Result Diagram: 09/17/1751609/17/17516 Objective Remarks GENERAL: Patient sitting up in bed. Appears comfortable. As yesterday, patient seen with nursing. SKIN: Warm and dry. HEAD: Normocephalic. EYES: No scleral icterus. No injection or drainage. NECK: Supple, trachea midline. No JVD. CARDIOVASCULAR: Regular rate and rhythm without murmurs, gallops, or rubs. RESPIRATORY: Breath sounds equal bilaterally. No accessory muscle use. GASTROINTESTINAL: Abdomen soft, non-tender, nondistended. MUSCULOSKELETAL: No cyanosis, or edema. Left hand dressed. BACK: Nontender without obvious deformity. No CVA tenderness. A/P Assessment and Plan 36 y/o female status post left wrist ORIF on 09/09/2017 admitted for reaction versus postop infection. //Reaction versus post op infection, s/p left wrist ORIF on 09/09/17 Continue OR washes and explorations. Hand surgeon following Continue Zosyn Vancomycin beads have been placed in the wound bed Continue to follow cultures Pain management = Continue antibiotics as per ID. Disposition as per hand surgery. Appreciate assistance. //DVT prophylaxis SCDs Discharge Planning Discharge when cleared by hand surgery and infectious disease. May need home IV antibiotics. Mahad Diez MD Sep 18, 2017 11:20
--- NOTE | 2017-09-18 15:25 | HHI.FF ---
Infusion Therapy Location of Infusion Therapy: Home Health Care IV Infusion Order Patient Information Patient Weight 75 kg Diagnosis: Coded Allergies: No Known Allergies (Verified Allergy, Unknown, 09/14/17) Administer Medication Vancomycin 1.5 grams IV q 12 hours Start Treatment: Sep 18, 2017 Stop Treatment: Oct 18, 2017 Additional Information Venous access: PICC Line Additional Instructions [x] Peripheral flush and dressing changes per protocol [x] Implanted port and central hogshead liner: * Implanted port: 10 ml Normal Saline followed by 5 ml Heparin 100 units/ml Heparin flush after each use and monthly to maintain. [] May leave port accessed during therapy. [] May leave peripheral site accessed for duration of therapy. [x] If patient has SOB or respiratory distress, check oxygen saturation. If less than 90% or clinical signs of respiratory distress, administer oxygen at 2 L/min. via nasal cannula and notify physician. [x] Anaphylaxis/Reaction orders: * Stop infusion. * Keep IV line open with saline flush. * Notify physician. * Monitor vital signs every 15 minutes until symptoms resolve. * Check Oxygen saturation; Oxygen at 2 L/min. via nasal cannula if less than 90% or clinical signs of respiratory distress. * Administer diphenhydramine (Benadryl) 25 mg IV STAT, (unless patient has received as pre-med). May repeat once, if necessary. * Solu-Cortef 250 mg IVP over 30-60 seconds, use 100 mg vials for each dissolution. * Epinephrine (1mg/1 ml) 0.3 mg subcutaneously or IVP now with any signs of respiratory distress. * Check with physician for new additional pre-med orders if patient is re- challenged or re-treated. [x] May remove PICC line when treatment complete, after confirming with Physician. [x] If the patient is admitted to the hospital, the ED, or transferred via [facility] , complete transfer form including medication reconciliation order sheet. Laboratory Tests Weekly Labs: CBC w/diff, Creatinine, CRP, SED Rate, Vancomycin Trough Elly Arechiga MD Sep 18, 2017 15:25
[2017-09-18] MEDS ORDERED: EPIN1INJ21 SQ (15:27)
[2017-09-18] MEDS ORDERED: EPIN1INJ21 IV PUSH (15:27)
[2017-09-18] MEDS ORDERED: SOLU250I IV PUSH (15:27)
[2017-09-18] MEDS ORDERED: VANC10IN IV (15:27)
[2017-09-18] MEDS ORDERED: LEVA750T9 PO (15:27)
--- NOTE | 2017-09-18 15:35 | HHI.PR ---
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
[2017-09-18] MEDS ORDERED: SODIUM CHLORIDE 0.9% FLUSH 10 ML FLUSH IV FLUSH PRN (18:00)
[2017-09-18] MEDS: SODIUM CHLOR 0.9% 1000 ML INJ 1,000 ML IV SCH (23:36)
[2017-09-19] VITALS: BP 114/79; PULSE 70; RESP 18; TEMP 99.3; O2SAT 98
[2017-09-19] MEDS: ACETAMINOPHEN/HYDROcodone 325 MG/10 MG TAB PO PRN ×3 (06:54→18:30)
[2017-09-19] MEDS ORDERED: PHARMACY ORDERED LAB ONE (07:45)
[2017-09-19 08:00] VITALS: BP 130/67; PULSE 75; RESP 18; TEMP 99; O2SAT 97
[2017-09-19] MEDS: LEVOFLOXACIN 750 MG TAB PO SCH (08:37)
[2017-09-19] MEDS: VANCOMYCIN 1,500 MG/NS 500 ML IV SCH ×4 (08:40→18:30)
[2017-09-19] MEDS: SODIUM CHLORIDE 0.9% FLUSH 10 ML FLUSH IV FLUSH SCH (08:41)
[2017-09-19] MEDS ORDERED: SODIUM CHLORIDE 0.9% FLUSH 10 ML FLUSH IV FLUSH SCH (09:00)
[2017-09-19 09:13] LABS: CREATININE 0.92 MG/DL (0.50-1.00)
[2017-09-19] MEDS: SODIUM CHLOR 0.9% 1000 ML INJ 1,000 ML IV SCH (09:31)
--- NOTE | 2017-09-19 09:44 | HHI.FF ---
Face to Face Verification Diagnosis: (1) Postoperative infection Home Health Nursing Order: IV medication administration I have seen patient Maddi Lang on 09/19/17. My clinical findings support the need for the requested home health care services because: Infection w/ risk of complications I certify that my clinical findings support that this patient is homebound because: Post-op weakness Luz Bryan MD Sep 19, 2017 09:44
--- NOTE | 2017-09-19 10:00 | HHI.DS ---
Discharge Summary Admission Date Sep 14, 2017 at 16:43 Discharge Date: Sep 19, 2017 Admitting Diagnosis Postop infection (1) Postoperative infection ICD Code: T81.4XXA - Infection following a procedure, initial encounter Status: Acute Procedures 66 exploratory wash with antibiotic bead a wound VAC application left distal forearm 6/7 exploration, wash debridement and partial closure of wound left forearm 6/8 exploration, wash debridement and partial closure of the wound left forearm /9 washing closure of the left forearm and carpal tunnel. Brief History - From Admission Obtained from admitting physician's history of present illness 36 y/o female with no medical history was sent to the ED for evaluation of her left wrist infection. She was seen out patient by Dr. Timmons and he requested her to come in so he can take her to the OR. She states her pain is a 6/10, intermittent throbbing that is relieved by pain medication. Denies any chest pain, sob, fever or chills. CBC/BMP: 09/17/17 0517 09/19/17 0811 Significant Findings Laboratory Tests Test 09/17/17 05:17 09/17/17 08:00 09/19/17 08:11 Red Blood Count 3.44 MIL/MM3 (4.00-5.30) Hemoglobin 9.2 GM/DL (11.6-15.3) Hematocrit 27.5 % (35.0-46.0) Mean Corpuscular Hemoglobin 26.7 PG (27.0-34.0) Platelet Count 459 TH/MM3 (150-450) Neutrophils (%) (Auto) 78.5 % (16.0-70.0) Total Protein 6.1 GM/DL (6.4-8.2) Albumin 2.9 GM/DL (3.4-5.0) Aspartate Amino Transf (AST/SGOT) 7 U/L (15-37) Estimat Glomerular Filtration Rate 86 ML/MIN (>89) 68 ML/MIN (>89) Vancomycin Level Trough 13.4 MCG/ML (5.0-10.0) 19.1 MCG/ML (5.0-10.0) PE at Discharge GENERAL: Well-developed, well-nourished patient with complaints of left hand pain. SKIN: Warm and dry. Left upper extremity with Brando and elevated. HEAD: Normocephalic. Atraumatic. EYES: Pupils equal and round. No scleral icterus. No injection or drainage. ENT: No nasal bleeding or discharge. Mucous membranes pink and moist. NECK: Supple. Trachea midline. CARDIOVASCULAR: Regular rate and rhythm. S1, S2 noted. No murmur appreciated. RESPIRATORY: No accessory muscle use. Clear to auscultation. Breath sounds equal bilaterally. GASTROINTESTINAL: Abdomen soft, non-tender, nondistended. Normoactive bowel sounds x4. MUSCULOSKELETAL: No obvious deformities. Extremities without clubbing, cyanosis , or edema. NEUROLOGICAL: Awake and alert. No obvious cranial nerve deficits. Motor grossly within normal limits. 5/5 muscle strength in bilateral upper and lower extremities. Normal speech. Hospital Course These are the medical issues addressed during this hospitalization: 36 y/o female status post left wrist ORIF on 09/09/2017 admitted for postop infection by hand surgery. Post op infection, s/p left wrist ORIF on 09/09/17 Debridement and OR washes and explorations as above procedures performed during hospitalization by. Hand surgeon Dr. Moon Given IV Zosyn and IV vancomycin Antibiotic beads have been placed in the wound bed Wound culture showed no growth, infectious disease physician, Dr. Eliana Arechiga recommended 4 weeks of IV vancomycin and p.o. Levaquin for 4 more weeks. Pain management At this time, patient has gained maximum benefit from hospitalization and is ready to be discharged with home health care to continue with outpatient IV antibiotics as above Pt Condition on Discharge: Good Discharge Disposition: Disch w/ Home Health Serv Discharge Time: <= 30 minutes Discharge Instructions DIET: Follow Instructions for: As Tolerated, No Restrictions Activities you can perform: See Additionl Instruction Other Activity Instructions: no heavy lifting with left arm Follow up Referrals: Hand Surgery - 1 Week with yaima PCP Follow-up New Medications: Epinephrine Inj (Epinephrine Inj) 1 Mg/Ml (1 Ml) Inj 0.3 MG IV PUSH ONCE PRN for ALLERGIC REACTION, #1 VIAL Epinephrine Inj (Epinephrine Inj) 1 Mg/Ml (1 Ml) Inj 0.3 MG SQ ONCE PRN for ALLERGIC REACTION, #1 VIAL Give with any signs of respiratory distress. Hydrocortisone Inj (Solu-Cortef Inj) 250 Mg/2 Ml Inj 250 MG IV PUSH ONCE PRN for ALLERGIC REACTION, #1 VIAL 0 Refills Give over 30-60 seconds. Levofloxacin (Levaquin) 750 Mg Tablet 750 MG PO DAILY for Infection for 30 Days, #30 TAB 0 Refills Vancomycin Inj (Vancomycin Inj) 10 Gram Inj 1500 MG IV BID for Infection for 30 Days, VIAL Continued Medications: Oxycodone-Acetaminophen (Percocet) 7.5-325 mg Tab 1 TAB PO Q4H PRN for PAIN, #15 TAB 0 Refills Discontinued Medications: Sulfamethoxazole-Trimethoprim (Bactrim DS) 800-160 Mg Tab 1 TAB PO BID for Infection for 5 Days, #10 TAB 0 Refills Luz Bryan MD Sep 19, 2017 10:00
[2017-09-19] MEDS ORDERED: ONDANSETRON HCL 4 MG/2 ML VIAL IV PUSH PRN (10:15)
[2017-09-19 12:00] VITALS: BP 113/65; PULSE 73; RESP 18; TEMP 98; O2SAT 99
[2017-09-19 14:23] VITALS: O2SAT 98
== END 2017-09-19 21:10 | disposition home or self-care (01) ==
LOC: HOR 13:43 → NEDA 16:43 → N06B 19:23
PROVIDERS: ADMIT Hospitalist; ATTEND Hospitalist
DX: T81.89XA Other complications of procedures, not elsewhere classified, initial encounter (principal); S52.572G Other intraarticular fracture of lower end of left radius, subsequent encounter for closed fracture with delayed healing; M25.532 Pain in left wrist; M79.642 Pain in left hand
CPT/HCPCS: 00400; 11011; 11981; 13120; 36569; 76937; 80048; 80053; 80202; 82565; 85025; 85610; 86850; 86900; 86901; 87015; 87070; 87102; 87116; 87205; 87206; 96361; 96365; 96366; 96367; 96375; 96376; 99285; G0378; J0131; J0690; J1100; J1170; J1642; J1885; J1956; J2175; J2250; J2270; J2405; J2543; J3010; J3370; J7030; J7040; J7120

== ENCOUNTER 2017-09-24 22:10 | Emergency (ER) | payer MEDICAID ==
[~2017-09-24 22:10] MED LIST changes: -DEXAMETHASONE SOD PHOS 4 MG/ML VIAL IV ONE; +EPIN1INJ21 IV PUSH; +EPIN1INJ21 SQ; +LEVA750T9 PO; -LIDOCAINE HCL 1% PF 5 ML SYRINGE OTHER ONE; -ONDANSETRON HCL 4 MG/2 ML VIAL IV ONE; -PROPOFOL 200 MG/20 ML AMP IV ONE; +SOLU250I IV PUSH; +VANC10IN IV
[2017-09-24 22:22] VITALS: BP 138/86; PULSE 81; RESP 18; TEMP 98.2; O2SAT 99
--- NOTE | 2017-09-24 23:17 | PD ---
HPI Chief Complaint: Skin Problem Time Seen by Provider: 22:43 Travel History International Travel<30 days: No Contact w/Intl Traveler<30days: No Traveled to known affect area: No History of Present Illness HPI 36-year-old female requesting PICC line to be checked. Patient has history of left wrist infection status post I&D and on IV antibiotic daily. Patient receiving vancomycin IV through PICC line daily. Patient states that her dog jumped on her right arm today and possibly pull out the PICC line. Patient complains of pain around the PICC line site. Patient states that she probably have a small amount of bleeding around the PICC line also. Patient denies any other problems. PFSH Past Medical History Medical History: Denies Significant Hx Blood Disorders: No Cancer: No Cardiovascular Problems: No Diminished Hearing: No Endocrine: No Genitourinary: No Immune Disorder: No Musculoskeletal: No Neurologic: No Psychiatric: No Reproductive: No Respiratory: No Immunizations Current: Yes ?: Not : 3 Para: 2 Miscarriage: 1 Ectopic : Yes (06/06/17 SX (denies)) Past Surgical History Abdominal Surgery: Yes (LAPROSCOPIC FOR ECTOPIC ) Gynecologic Surgery: Yes (Laparoscopic due to ectopic .) Other Surgery: Yes Social History Alcohol Use: Yes Tobacco Use: No Substance Use: No Allergies-Medications (Allergen,Severity, Reaction): Coded Allergies: No Known Allergies (Verified Allergy, Unknown, 09/24/17) Reported Meds & Prescriptions Reported Meds & Active Scripts Active Review of Systems General / Constitutional: No: Fever Eyes: No: Visual changes HENT: No: Headaches Cardiovascular: No: Chest Pain or Discomfort Respiratory: No: Shortness of Breath Gastrointestinal: No: Abdominal Pain Genitourinary: No: Dysuria Musculoskeletal: No: Pain Skin: No Rash Neurologic: No: Weakness Psychiatric: No: Depression Endocrine: No: Polydipsia Hematologic/Lymphatic: No: Easy Bruising Physical Exam Narrative GENERAL: Well-nourished, well-developed patient. SKIN: Focused skin assessment warm/dry. HEAD: Normocephalic. EYES: No scleral icterus. No injection or drainage. NECK: Supple, trachea midline. No JVD or lymphadenopathy. CARDIOVASCULAR: Regular rate and rhythm without murmurs, gallops, or rubs. RESPIRATORY: Breath sounds equal bilaterally. No accessory muscle use. GASTROINTESTINAL: Abdomen soft, non-tender, nondistended. MUSCULOSKELETAL: No cyanosis, or edema. BACK: Nontender without obvious deformity. No CVA tenderness. Inspection of the right upper arm around the PICC line shows no redness no swelling no ecchymosis no active bleeding. Mild tenderness in the soft tissue around the PICC line. PICC line is in place. PICC line flushing without any problem. Data Data Last Documented VS Vital Signs Date Time Temp Pulse Resp B/P (MAP) Pulse Ox O2 Delivery O2 Flow Rate FiO2 09/24/17 22:22 98.2 81 18 138/86 (103) 99 Orders Orders Ed Discharge Order (09/24/17 23:09) MDM Medical Decision Making Medical Screen Exam Complete: Yes Emergency Medical Condition: Yes Differential Diagnosis Differential diagnosis including PICC line displacement, nonfunctional PICC line. Narrative Course 36-year-old female requesting PICC line to be checked after her dog jumped on her right arm this evening. Patient receiving IV antibiotic daily through the PICC line. Diagnosis Primary Impression: PIC line (peripherally inserted central catheter) flush Patient Instructions: General Instructions Additional Instructions: May continue to use the PICC line for IV antibiotic. Follow-up with personal physician. Return as needed. Med/Other Pt SpecificInfo: No Change to Meds Disposition: 01 DISCHARGE HOME Condition: Stable Bienvenido Matos MD Sep 24, 2017 23:17
== END 2017-09-24 23:27 | disposition home or self-care (01) ==
LOC: NEPD 22:10
DX: T85.890A Other specified complication of nervous system prosthetic devices, implants and grafts, initial encounter (principal)
CPT/HCPCS: 99281